=== PATIENT | male | born 1975 | race Caucasian/White ===

== ENCOUNTER 2023-01-08 13:26 | Outpatient (OUT) | payer BC, SELFPAY ==
[2023-01-08 14:52] LABS: Bilirubin Urine NEGATIVE (NEGATIVE); Blood Urine NEGATIVE (NEGATIVE); Clarity Urine CLEAR (CLEAR); Color Urine LT. YELLOW (YELLOW); Glucose Urine UA NEGATIVE (NEGATIVE); Ketones Urine NEGATIVE (NEGATIVE); Leukocyte Esterase Urine SMALL (NEGATIVE); Nitrite Urine POSITIVE (NEGATIVE); Protein Urine NEGATIVE (NEG/TRACE); Specific Gravity Urine 1.025 (1.005-1.025); Urobilinogen Urine 0.2 EU/dL (0.2-1.0)
[2023-01-08 14:59] LABS: Bacteria Urine SMALL #/HPF (NONE SEEN); Crystals Seen? None Seen #/HPF (None Seen); Mucus Urine NONE SEEN (NONE SEEN); RBC Urine NONE SEEN #/HPF (0-2); Squamous Epithelial Cell Urine RARE #/LPF (NONE/RARE)
[2023-01-08 15:00] LABS: Cast Seen? NONE SEEN #/LPF (NONE SEEN); Urine Culture Indicated ALREADY ORDERED
[2023-01-08 16:11] LABS: Prostate Specific Antigen Dx 0.51 ng/mL (<=4.00)
== END 2023-01-08 13:27 | disposition home or self-care (01) ==
LOC: LAB 13:29
PROVIDERS: PCP Family Medicine; Visit Provider Family Medicine
DX: Z00.00 Encounter for general adult medical examination without abnormal findings (principal)
CPT/HCPCS: 36415; 81001; 84153; 87086; 87150; 87186

== ENCOUNTER 2023-01-08 13:32 | Outpatient (OUT) | payer BC, SELFPAY ==
[2023-01-08 14:20] LABS: Basophils Percent Auto 0.3 % (0.2-2.0); Eosinophils Absolute Auto 0.3 10^3/uL (0.0-0.7); Eosinophils Percent Auto 2.7 % (0.9-7.0); Hematocrit 43.9 % (42.0-54.0); Hemoglobin 16.2 g/dL (14.0-18.0); Immature Granulocytes Abs Auto 0.04 10^3/uL (0.00-0.03); Immature Granulocytes Pct Auto 0.4 % (0.0-0.5); Lymphocytes Absolute Auto 2.7 10^3/uL (1.2-3.8); Lymphocytes Percent Auto 27.4 % (20.5-60.0); Mean Corpuscular HGB Conc 36.9 g/dL (29.9-35.2); Mean Corpuscular Hemoglobin 32.3 pg (25.9-34.0); Mean Corpuscular Volume 87.6 fL (80.0-94.0); Mean Platelet Volume 8.9 fL (9.5-13.5); Monocytes Absolute Auto 0.8 10^3/uL (0.3-0.8); Monocytes Percent Auto 8.3 % (1.7-12.0); Neutrophils Percent Auto 60.9 % (43.0-75.0); Platelet Count 187 10^3/uL (150-450); Red Blood Count 5.01 10^6/uL (4.70-6.10); Red Cell Distribution Width 11.9 % (11.0-15.0); White Blood Count 9.9 10^3/uL (4.0-11.0)
[2023-01-08 14:28] LABS: Creatinine Urine Random 102.16 mg/dL (20.00-300.00); Microalbum Creatinine Ratio Ur 12.7 mg/g (0.0-29.9); Microalbumin Urine Random 1.3 mg/dL (<=30.0)
[2023-01-08 14:30] LABS: Estimated Average Glucose 157 mg/dL; Glycohemoglobin A1C 7.1 % (4.5-6.2)
[2023-01-08 15:01] LABS: Alanine Aminotransferase 54 U/L (16-63); Albumin Globulin Ratio 1.1; Albumin Level 4.2 g/dL (3.4-5.0); Alkaline Phosphatase 105 U/L (46-116); Anion Gap 11.5; Aspartate Amino Transferase 23 U/L (15-37); BUN Creatinine Ratio 17.6; Bilirubin Total 0.8 mg/dL (0.2-1.0); Calcium 9.3 mg/dL (8.5-10.1); Chloride 100 mmol/L (98-107); Cholesterol 219 mg/dL (<=200); Estimated GFR (African America >60 (>=60); Estimated GFR (Non-African Ame >60 (>=60); Free T3 2.72 pg/mL (2.18-3.98); Globulin 3.7 g/dL; Glucose 185 mg/dL (74-106); HDL Cholesterol 44 mg/dL (40-60); Potassium 3.5 mmol/L (3.5-5.1); Sodium 136 mmol/L (136-145); Thyroid Stimulating Hormone 1.992 uIU/mL (0.358-3.740); Total Protein 7.9 g/dL (6.4-8.2); Triglycerides 233 mg/dL (<=150); VLDL CHOLESTEROL 46.6 mg/dL
[2023-01-09 04:08] LABS: FSH 5.4 mIU/mL (1.5-12.4); Luteinizing Hormone(LH) 9.1 mIU/mL (1.7-8.6); Testosterone 297 ng/dL (264-916)
== END 2023-01-08 13:33 | disposition home or self-care (01) ==
LOC: LAB 13:33
PROVIDERS: PCP Family Medicine
DX: Z00.00 Encounter for general adult medical examination without abnormal findings (principal); E23.7 Disorder of pituitary gland, unspecified; E11.9 Type 2 diabetes mellitus without complications
CPT/HCPCS: 36415; 80053; 80061; 81001; 82043; 82306; 82570; 82607; 83001; 83002; 83036; 84153; 84403; 84439; 84443; 84481; 85025; 87086; 87150; 87186

== ENCOUNTER 2023-09-18 12:10 | Emergency (ER) | payer BC, SELFPAY ==
[2023-09-18 12:11] VITALS: BP 162/96; PULSE 77; TEMP 36.8; O2SAT 98; BMI 46.2
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
[2023-09-18] MEDS: KETOROLAC TROMETHAMINE 30 MG/ML VIAL IM (12:45)
[2023-09-18] MEDS: ORPHENADRINE 60 MG/ 2 ML VIAL IM (12:46)
[2023-09-18 13:41] VITALS: BP 142/94; PULSE 62; O2SAT 98
== END 2023-09-18 14:32 | disposition home or self-care (01) ==
PROVIDERS: Emergency Provider Emergency Medicine; PCP Family Medicine
DX: M54.50 Low back pain, unspecified (principal); G89.29 Other chronic pain; Z87.820 Personal history of traumatic brain injury; Z79.899 Other long term (current) drug therapy; Z87.81 Personal history of (healed) traumatic fracture
CPT/HCPCS: 96372; 99284

== ENCOUNTER 2023-09-22 12:34 | Outpatient (OUT) | payer BC, SELFPAY ==
--- NOTE | 2023-09-22 12:42 | MR_ITS ---
[address] [address] Patient Name: ALPHONSO SHAFER MRN: [id number] date: 1975 Sex: M Assigned Patient Location: MRI Current Patient Location: MRI Accession/Order Number: [id number] Exam Date: 09/22/2023 12:42 Report Date: 09/22/2023 13:51 At the request of: JUAN MONTERROSO Procedure: MR lumbar spine wo con EXAMINATION: MR lumbar spine wo con HISTORY: lumbar back pain radiculopathy M54.50, M54.10 COMPARISON: No relevant comparison available. TECHNIQUE: A variety of imaging planes and parameters were utilized for visualization of suspected pathology. FINDINGS: For the purposes of numbering, sagittal T2 image # 8 extends from the mid T11 vertebral body superiorly to the S2-S3 level inferiorly. PARASPINAL AREA: Normal with no visible mass. BONES: Normal alignment with no acute fracture or spondylolisthesis. Mild to moderate degenerative spondylosis CORD/CAUDA EQUINA: Normal caliber, contour, and signal intensity. DISC LEVELS: 12-L1: No significant disc/facet abnormality, spinal stenosis, or foraminal stenosis. L1-L2: Early degenerative disc disease is present without focal protrusion or neural impingement. L2-L3: Disc desiccation. Mild diffuse disc/osteophyte complex with ligamentum flavum hypertrophy. Trefoil narrowing of the central canal. Moderate narrowing of the right neural foramen sagittal image #10. No left foraminal stenosis L3-L4: Disc desiccation. Mild diffuse disc/osteophyte complex. No central or foraminal stenosis L4-L5: No disc bulge or herniation. No central or foraminal stenosis L5-S1: No significant disc/facet abnormality, spinal stenosis, or foraminal stenosis. MR/MR lumbar spine wo con IMPRESSION: Degenerative changes resulting in central canal stenosis at L2-L3 and foraminal stenosis L2-3 and L3-L4 Electronically authenticated by: JUAN NICK Date: 09/22/2023 13:51
== END 2023-09-22 12:35 | disposition home or self-care (01) ==
LOC: MRI 12:35
PROVIDERS: PCP Family Medicine; Visit Provider Family Medicine
DX: M54.50 Low back pain, unspecified (principal); M54.10 Radiculopathy, site unspecified; M51.36 Other intervertebral disc degeneration, lumbar region
CPT/HCPCS: 72148

== ENCOUNTER 2023-10-01 13:24 | Outpatient (OUT) | payer BC, SELFPAY ==
--- NOTE | 2023-10-01 13:36 | P.CN_ITS ---
Consult Note: HPI Data of Consult Patient: new to practice Consult date: 10/01/23 Requesting Physician: Urvashi Kim NP Primary Care Provider: JUAN MONTERROSO Consult Narrative Reason for consult: chronic low back pain with acute flair Narrative: Rian Coleman a pleasant 48 year old male with chronic moderate to severe low back pain presents for evaluation and management. Recently evaluated by NS this morning who recommends CHANTELLE. Significant loss of functional ability over the last few weeks, is now unable to do anything besides lie flat due to severe pain/weakness. Pain today 9/10 increasing to 10/10 with all activity. Medrol dose pack 09/11 without benefit. Failed tylenol and mobic, currently utilizing ibuprofen, percocet 7.5mg PRN, gabapentin started today 300mg TID, old flexeril 10mg tid PRN script without benefit. cc:: CC: Urvashi Kim NP Review of Systems ROS Status of ROS 10 or more systems reviewed and unremark able except as noted in history and below Musculoskeletal Reports: back pain, extremity pain and joint pain Meds Home Medications and Allergies Home Medications ?Medication ?Instructions ?Recorded ?Confirmed ?Type carvedilol 25 mg tablet 25 mg PO BID 09/18/23 09/18/23 History chlorthalidone 25 mg tablet 25 mg PO DAILY 09/18/23 09/18/23 History empagliflozin 10 mg tablet 10 mg PO DAILY 09/18/23 09/18/23 History (Jardiance) lidocaine 5 % topical patch 1 patch topical Q24H #15 ea 09/18/23 Rx (Lidoderm) losartan 100 mg tablet 100 mg PO DAILY 09/18/23 09/18/23 History methylprednisolone 4 mg tablets in 4 mg PO DAILY 09/18/23 09/18/23 History a dose pack oxycodone-acetaminophen 5 mg-325 1 tab PO Q4H PRN pain #10 tabs 09/18/23 Rx mg tablet (Percocet) potassium chloride 20 mEq 20 meq PO .every other day 09/18/23 09/18/23 History tablet,extended release(part/cryst) (Klor-Con M) Allergies Allergy/AdvReac Type Severity Reaction Status Date / Time No Known Drug Allergies Allergy Verified 09/18/23 12:14 Exam Narrative Exam Narrative: modified exam as patient cannot tolerate standing/sitting Constitutional Documenting provider has reviewed patient's vital signs: yes Common normals: no apparent distress, oriented x3, healthy appearing, alert and well nourished General appearance: cooperative HENMT Common normals: normocephalic, hearing grossly normal bilaterally and moist oral mucous membranes Head and scalp: normocephalic Eye Common normals: PERRL Pupil: PERRL Neck & C-Spine Common normals: full ROM General: normal visual inspection Chest Common normals: inspection of chest normal Respiratory Common normals: normal respiratory effort, no retractions and no use of accessory muscles Back & Pelvis Lumbar spine/lower back: ROM limited, pain with ROM, paraspinal muscle tenderness and straight leg raise positive right Sacroiliac joints: SI joint(s) abnormal Other: significant pain to RLE following L3-L5 radicular pattern strength 3/5 in RLE modified positive adriana(patricks), gaenslens, thigh thrust, compression test Extremity Common normals: normal to inspection Neuro Common normals: oriented x3, CN's II-XII intact bilaterally, moves all extremities, no focal motor deficits, no sensory deficits noted and deep tendon reflexes 2+ bilaterally Sensorium/orientation: alert Gait (neuro): antalgic Motor exam: no movement abnormalities noted and strength abnormal Psych Common normals: mental status grossly normal, thought process normal, cooperative, affect normal, speech normal and activity/motor behavior normal Speech: normal speech Thought process: normal thought process Results Additional Findings Additional findings: If on a controlled substance or opioids, I have checked an [place] report on this patient and there are no aberrancies noted in the prescribing history.??If on a controlled substance or opioid a drug screen was completed and reviewed within the last year, and if there has not been a drug screen completed we ordered one today to monitor higher risk, state monitored pain medication use. As part of providing excellent, safe, comprehensive care, the following was completed at our patient's visit: 1. A medication reconciliation and review to ensure accurate knowledge of current/active medications, including asking our patients to inform us about any [id number] medications or herbal remedies/nutritional supplements/alternative remedies. 2. A review to specifically ensure our patients have had annual screening for screening for depression, screening for tobacco use, and screening for unhealthy alcohol use. For concerning screenings had a discussion with the patient, provided patient education, and recommended follow-up with primary care provider when appropriate. If patient noted with a risk of falling, they received education on strength, gait, and balance training to prevent future risk of falling. Assessment and Plan Assessment and Plan (1) Lumbar stenosis with neurogenic claudication: (2) Lumbar radiculopathy: (3) DDD (degenerative disc disease), lumbar: (4) Myofascial pain: Plan unable to complete PT/HEP due to severe pain NS recommending L4-5 CHANTELLE prior to surgical intervention based on physical exam and lumbar MRI findings right L3-4 L4-5 CHANTELLE under fluoroscopy, risks vs benefits discussed all questions answered continue percocet gabapentin through NS start tizanidine 4-8mg TID PRN myofascial pain/spasms f/u 2 weeks after injection
== END 2023-10-01 13:25 | disposition home or self-care (01) ==
LOC: PM 13:24
PROVIDERS: PCP Family Medicine; Visit Provider Nurse Practitioner
DX: M48.062 Spinal stenosis, lumbar region with neurogenic claudication (principal); M54.16 Radiculopathy, lumbar region; M51.36 Other intervertebral disc degeneration, lumbar region; M79.18 Myalgia, other site
CPT/HCPCS: G0463

== ENCOUNTER 2023-10-05 08:05 | Day surgery (SDC) | payer BC, SELFPAY ==
[2023-10-05 08:15] LABS: Glucometer 178 mg/dL (74-106)
[2023-10-05 08:22] VITALS: BP 100/65; PULSE 70; TEMP 36.6; O2SAT 96
--- OUTSIDE RECORDS SUMMARY | 2023-10-05 08:26 | XMS_ITS | CCD ---
Author Organization [facility] Care Team Providers Care Engine Dispatcher Name Role Phone EDI JIMENEZ Attending Unavailable JUAN MONTERROSO Primary Care Unavailable JUAN MONTERROSO Referring Unavailable BARBARA EDI Tuan Admitting Unavailable BARBARA EDI Tuan Surgeon Unavailable [place] Procedure Practitioner UnavailJuan Rizvi Unavailable Juan Monterroso DO Primary Care Provider CARRI CAMARILLO Attending Unavailable RABIA, CARRI Admitting Unavailable CARRI CAMARILLO Consulting Unavailable KRISS, DR MARTINEZ Primary Care Unavailable CARRI CAMARILLO Attending Unavailable CARRI CAMARILLO Admitting Unavailable GIRMARTA, DR MARTINEZ Primary Care Unavailable ZIEBER, DR QUINTON Russell Consulting Unavailable CARRI CAMARILLO Consulting Unavailable GIRMARTA, DR MARTINEZ Consulting Unavailable GIRVIN, DR MARTINEZ Attending Unavailable GIRVIN, DR MARTINEZ Admitting Unavailable GIRVIN, DR MARTINEZ Primary Care Unavailable GIRVIN, DR MARTINEZ Primary Care Unavailable ELTAHAWY, DR RAYMUNDO Admitting Unavailable ELTAHAWY, DR RAYMUNDO Attending Unavailable BRADLEY, JUAN Attending Unavailable GIRVIN, DR MARTINEZ Primary Care Unavailable JUAN HUERTA Admitting Unavailable MISC, DR CARR Consulting Unavailable GIRVIN, DR MARTINEZ Primary Care Unavailable MISC, DR CARR Attending Unavailable MISC, DR CARR Admitting Unavailable GIRVIN, DR MARTINEZ Primary Care Unavailable GIRVIN, DR MARTINEZ Consulting Unavailable GIRVIN, DR MARTINEZ Attending Unavailable GIRVIN, DR MARTINEZ Admitting Unavailable GIRVIN, DR MARTINEZ Attending Unavailable GIRVIN, DR MARTINEZ Admitting Unavailable GIRVIN, DR MARTINEZ Primary Care Unavailable GIRVIN, DR MARTINEZ Primary Care Unavailable GIRVIN, DR MARTINEZ Attending Unavailable GIRVIN, DR MARTINEZ Admitting Unavailable LEYLA, ASH Consulting Unavailable LEYLA, ASH Attending Unavailable GIRVIN, DR MARTINEZ Primary Care Unavailable LEYLA, ASH Admitting Unavailable MISC, DR CARR Consulting Unavailable GIRMARTA, DR MARTINEZ Primary Care Unavailable [facility] CARR Admitting Unavailable MIS, DR CARR Attending Unavailable CARRI CAMARILLO Admitting Unavailable RABIA, CARRI Consulting Unavailable CARRI CAMARILLO Attending Unavailable KRISS, DR MARTINEZ Primary Care Unavailable [facility], DR RAYMUNDO Consulting Unavailable [facility], DR RAYMUNDO Attending Unavailable [facility], DR RAYMUNDO Admitting Unavailable KRISS, DR MARTINEZ Primary Care Unavailable KRISS, DR MARTINEZ Primary Care Unavailable CHANDRA FOSS Consulting Unavailable CHANDRA FOSS Attending Unavailable PIPO, CHANDRA Admitting Unavailable ZOEY BENOIT Consulting Unavailable KRISS, DR MARTINEZ Primary Care Unavailable [facility] [place] DR CARR Consulting Unavailable [facility], DR CARR Attending Unavailable [facility], DR CARR Admitting Unavailable [facility]3] Juan GARCIA Primary Care Provider Tone Lockhart Attending Unavailab Tone Tabares Admitting Unavailab Juan Sinha Primary Care Unavailable [facility], JUSTEN Attending Unavailable EDI JIMENEZ Attending Unavailable Medications Current Medications Medication Drug Class(es) Dates Sig (Normalized) Sig (Original) atenolol 25 mg oral tablet (3 sources) beta-Adrenergic Ciara Start: 09-12-2010 atenolol (TENORMIN) 25 MG tablet Take 25 mg by mouth. 0 09/12/2010 Active atorvastatin 80 mg oral tablet (1 source) HMG-CoA Reductase Inhibitor take 1 tablet by mouth every twenty-four hours Atorvastatin Calcium 80 MG 1 tablet Orally Once a day Active bisacodyl 10 mg rectal suppository (3 sources) Stimulant Laxative Start: 07-15-2018 bisacodyl (DULCOLAX) 10 MG suppository Insert 1 Suppository in the rectum daily as needed for Constipation. 1 Suppository 0 07/15/2018 Active carvedilol 25 mg oral tablet (5 sources) alpha-Adrenergic Ciara, beta-Adrenergic Ciara Start: 11-06-2021 take 1 tablet by mouth every twenty-four hours Coreg 25 MG 1 tablet with food Orally daily Oct, Active Start: 11-06-2021 take 1 tablet by nj th every twelve hours Coreg 12.5 MG 1 tablet with food Orally Twice a day Oct, Active cephalexin 500 mg oral capsule (3 sources) Cephalosporin Antibacterial Start: 07-21-2018 take 1 capsule by mouth every six hours cephALEXin (KEFLEX) 500 MG capsule TAKE ONE CAPSULE BY MOUTH EVERY 6 HOURS 0 07/21/2018 Active chlorthalidone 25 mg oral tablet (7 sources) Thiazide-like Diuretic take 1 tablet by mouth once Chlorthalidone 25 MG TAKE 1 TABLET BY MOUTH EVERY DAY*REPLACING HYDROCHLOROTHIAZIDE * Oral Active clomiPHENE citrate 50 mg oral tablet (6 sources) Estrogen Agonist/Antagonist take 0.5 tab let by mouth once daily clomiPHENE Citrate 50 MG 1/2 tablet Orally Once a day Active docusate sodium 100 mg oral capsule (3 sources) Start: 07-15-2018 take 1 capsule by mouth twice daily docusate sodium (COLACE) 100 MG capsule Take 1 Capsule by mouth 2 times daily. 60 Capsule 3 07/15/2018 Active empagliflozin 10 mg oral tablet (1 source) Sodium-Glucose Cotransporter 2 Inhibitor Start: 12-16-2022 take 1 tablet by mouth every twenty-four hours Jardiance 10 MG 1 tablet Orally Once a day for 90 days Nov, Active 0.6 ml enoxaparin sodium 100 mg/ml prefilled syringe (3 sources) Low Molecular Weight Heparin Start: 07-15-2018 inject 0.6 mL by subcutaneous injection twice daily enoxaparin (LOVENOX) 60 MG/0.6ML injection Inject 0.6 mL under the skin 2 times daily. 50.4 mL 0 07/15/2018 Active hydroCHLOROthiazide 25 mg oral tablet (5 sources) Thiazide Diuretic Start: 07-16-2018 take 1 tablet by mouth once daily hydrochlorothiazide (HYDRODIURIL) 25 MG tablet Take 1 Tablet by mouth daily. 30 Tablet 0 07/16/2018 Active hydroCHLOROthiazide 25 mg / losartan potassium 100 mg oral tablet (3 sources) Thiazide Diuretic, Angiotensin 2 Receptor Ciara Start: 09-12-2010 losartan-hydrochlorot hiazide (HYZAAR) 100-25 MG per tablet Take by mouth. 0 09/12/2010 Active ibuprofen 600 mg oral tablet (9 sources) Nonsteroidal Anti-inflammator y Drug Start: 09-12-2010 ibuprofen (MOTRIN) 600 MG tablet Take 600 mg by mouth. 0 09/12/2010 Active take 1 tablet by nj th every eight hours at mealtime Ibuprofen 800 MG TAKE 1 TABLET BY MOUTH EVERY 8 HOURS WITH FOOD for 30 Active icosapent ethyl 1000 mg oral capsule (1 source) take 2 capsules by mouth every twelve hours Vascepa 1 GM 2 capsules with meals Orally Twice a day Active levETIRAcetam 750 mg oral tablet (3 sources) Start: 07-13-19 19 take 1 tablet by mouth twice daily levetiracetam (KEPPRA) 750 MG tablet Take 1 Tablet by mouth 2 times daily for 7 days. 14 Tablet 0 07/13/2018 Active losartan potassium 100 mg oral tablet (10 sources) Angiotensin 2 Receptor Ciara Start: 07-16-19 19 take 1 tablet by mouth once daily losartan (COZAAR) 100 MG tablet Take 1 Tablet by mouth daily. 30 Tablet 0 07/16/2018 Active meloxicam 15 mg oral tablet (1 source) Nonsteroidal Anti-inflammatory Drug Start: 01-13-20 23 take 1 tablet by mouth every twenty-four hours Meloxicam 15 MG 1 tablet Orally Once a day for 90 days Dec, Active 24 hr metFORMIN hydrochloride 500 mg extended release oral tablet (6 sources) Biguanide metFORMIN HCl ER 500 MG 2 tablets with morning meal Orally and take 2 tablets with evening meal Active naloxone hydrochloride 40 mg/ml nasal spray (3 sources) Opioid Antagonist Start: 07-13-2018 naloxone 4 MG/0.1ML LIQD nasal liquid Indications: Opioid Overdose Instill 0.1 mL into one nostril (alternate sides) as needed for Other (Drug overdose, give and call 911) for up to 1 dose. 1 Each 1 07/13/2018 Active nitrofurantoin, macrocrystals 25 mg / nitrofurantoin, monohydrate 75 mg oral capsule (1 source) Nitrofuran Antibacterial Start: 01-12-2023 take 1 capsule by mouth twice daily at mealtime Macrobid 100 MG 1 capsule Orally bid with food for 7 days Dec, Active microencapsulated potassium chloride 20 meq extended release oral tablet (1 source) Start: 01-12-2023 take 1 tablet by mouth every other day at mealtime Potassium Chloride Paola ER 20 MEQ 1 tablet with food Orally qod for 90 days Dec, Active SITagliptin (4 sources) Dipeptidyl Peptidase 4 Inhibitor Januvia Active Testosterone (12 sources) Androgen Testosterone pil l Active Testosterone inj ection every other week Active Vitamin B-12 1000 MCG (2 sources) take 1 tablet by nj th once daily Vitamin B-12 1000 MCG 1 tablet Orally Once a day Active vitamin b12 1 mg oral tablet (5 sources) Vitamin B12 take 1 tablet by nj th every week Vitamin B-12 1000 MCG 1 tablet Orally once a week Active take 1 tablet by nj th every twenty-four hours Vitamin B-12 1000 MCG 1 tablet Orally Once a day Active Vitamin D3 (7 sources) Vitamin D3 Activ e {20 (nirmatrelvir 150 MG Ora l Tablet) / 10 (ritonavir 100 MG Oral Tablet) } Pack [Paxlovid 5-Day] (1 source) Start: 04-24-2022 Paxlovid (300/ 100) 20 x 150 MG & 10 x 100MG as directed Orally Twice a day Apr, Active Completed/Discontinued Medications Medication Drug Class(es) Dates Sig (Normalized) Sig (Original) amLODIPine 10 mg oral tablet (8 sources) Dihydropyridine Calcium Channel Ciara take 1 tablet by mouth every twenty-four hours Norvasc 10 MG 1 tablet Orally Once a day for 30 Not-Taking 120 actuat budesonide 0.08 mg/actuat / formoterol fumarate 0.0045 mg/actuat metered dose inhaler (7 sources) Corticosteroid, beta2-Adrenergic Agonist take 2 puff(s) by inhalation once daily Symbicort 80-4.5 MCG/ACT 2 puffs Inhalation Once a day Not-Taking dextromethorphan hydrobromid e 30 mg / pyrilamine maleate 30 mg oral tablet (2 sources) Uncompetitive E-kkulwx-N-aspartate Receptor Antagonist, Sigma-1 Agonist Start: 05-13-2021 Start: 05-13-2021 take 1 tablet by nj th every six hours as needed Dinosaur DMT 30-30 MG 1 tablet Orally q6 hrs prn Apr, Not-Taking methocarbamol 500 mg oral ta blet (2 sources) Muscle Relaxant somatropin 24 mg cartridge (2 sources) Recombinant Human Growth Hormone Problems Active Problems Problem Classification Problem Date Documented Date Episodic/Chronic Diabetes mellitus without complication (5 sources) Type 2 diabetes mellitus without complications; 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: [TYPE 2 DM WITHOUT COMPLICATIONS] Onset: 07-15-2022 Chronic Diseases of white blood cells (7 sources) Increased blood leukocyte number; 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: [Elevated white blood cell count, unspecified] Chronic Disorders of lipid metabolism (13 sources) Hyperlipidemia; 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: [Hyperlipidemia, unspecified] Onset: 06-18-2021 Resolved: 11-06-2021 Chronic Essential hypertension (12 sources) Hypertensive disorder; 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: [Essential (primary) hypertension] Onset: 06-18-2021 Resolved: 11-06-2021 Chronic Fluid and electrolyte disorders (6 sources) Hypokalemia; 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: [HYPOKALEMIA] Onset: 11-06-2021 Resolved: 11-06-2021 Episodic Joint disorders and dislocations; trauma-related (1 source) Chondromalacia patellae, left knee; 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: [CHONDROMALACIA PATELLAE LEFT KNEE] Onset: 01-15-2022 Chronic Malaise and fatigue (1 source) Other fatigue; 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: [OTHER FATIGUE] Onset: 07-19-2022 Episodic Nutritional deficiencies (10 sources) Vitamin D deficiency; 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: [Vitamin D deficiency, unspecified] Onset: 06-18-2021 Resolved: 11-06-2021 Chronic Other aftercare (1 source) skilled nursing (current) use of insulin; 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: [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] Onset: 07-19-2022 Episodic Other endocrine disorders (7 sources) Decreased testosterone level ; 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: [Testicular hypofunction] Chronic Other endocrine disorders (7 sources) Hypogonadotropic hypogonadism; 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: [Hypopituitarism] Chronic Other endocrine disorders (2 sources) Hypopituitarism; 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: [HYPOPITUITARISM] Onset: 06-18-2021 Resolved: 06-18-2021 Chronic Other endocrine disorders (2 sources) Testicular hypofunction; 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: [TESTICULAR HYPOFUNCTION] Onset: 06-18-2021 Resolved: 06-18-2021 Chronic Other nervous system disorders (7 sources) Paresthesia; 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: [Paresthesia of skin] Episodic Other nutritional; endocrine; and metabolic disorders (7 sources) Obesity; 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: [Obesity, unspecified] Chronic Residual codes; unclassified (7 sources) Obstructive sleep apnea syndrome; 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: [Obstructive sleep apnea (adult) (pediatric)] Chronic Residual codes; unclassified (7 sources) Amnesia; 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: [Other amnesia] Episodic Spondylosis; intervertebral disc disorders; other back problems (3 sources) Cervicalgia; 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: [Radiculopathy, lumbar region] Onset: 06-18-2021 Resolved: 06-18-2021 Episodic Unclassified (4 sources) CONTACT W/AND (SUSP) EXPOS COVID-19; 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: [CONTACT W/AND (SUSP) EXPOS COVID-19] Onset: 01-15-2022 Viral infection (2 sources) COVID-19; 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: [COVID-19] Onset: 06-18-2021 Resolved: 06-18-2021 Past or Other Problems Problem Classification Problem Date Documented Da te Episodic/Chronic Cardiac dysrhythmias (4 sources) Palpitations; 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: [PALPITATIONS] Onset: 02-18-2022 Episodic Diabetes mellitus without complication (6 sources) Hyperglycemia, unspecified; 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: [HYPERGLYCEMIA UNSPECIFIED] Onset: 06-18-2021 Resolved: 11-06-2021 Episodic Genitourinary symptoms and ill-defined conditions (1 source) Nocturia Onset: 06-18-2021 Resolved: 06-18-2021 Episodic Intracranial injury (1 source) Unspecified intracranial injury with loss of consciousness of unspecified duration, initial encounter Onset: 06-18-2021 Resolved: 06-18-2021 Episodic Joint disorders and dislocations; trauma-related (1 source) Other tear of medial meniscus, current injury, left knee, initial encounter; 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: [OTH TEAR MED MENSC CUR LT KNEE INIT] Onset: 01-15-2022 Episodic Other aftercare (2 sources) Other exterminator helper (current) drug therapy Onset: 06-18-2021 Resolved: 11-06-2021 Episodic Other bone disease and musculoskeletal deformities (1 source) Chondromalacia, left knee; 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: [CHONDROMALACIA LEFT KNEE] Onset: 01-15-2022 Episodic Other connective tissue disease (1 source) Synovial cyst of popliteal space [Alfaro], left knee; 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: [SYNOVIAL CYST POP SPACE LEFT KNEE] Onset: 01-15-2022 Episodic Other connective tissue disease (4 sources) Pain in right foot; 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: [PAIN IN RIGHT FOOT] Onset: 11-11-2021 Episodic Other non-traumatic joint disorders (4 sources) Pain in left knee; 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: [PAIN IN LEFT KNEE] Onset: 01-10-2022 Episodic Other non-traumatic joint disorders (1 source) Effusion, left knee; 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: [EFFUSION LEFT KNEE] Onset: 01-15-2022 Episodic Other non-traumatic joint disorders (1 source) Osteophyte, left knee; 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: [OSTEOPHYTE LEFT KNEE] Onset: 01-15-2022 Episodic Other nutritional; endocrine; and metabolic disorders (1 source) Abnormal weight gain Onset: 06-18-2021 Resolved: 06-18-2021 Episodic Other nutritional; endocrine; and metabolic disorders (1 source) Abnormal weight loss Onset: 11-06-2021 Resolved: 11-06-2021 Episodic Other screening for suspected conditions (not mental disorders or infectious disease) (1 source) Encounter for screening for malignant neoplasm of prostate Onset: 06-18-2021 Resolved: 06-18-2021 Episodic Sprains and strains (4 sources) Rupture of quadriceps tendon; 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: [Strain of right quadriceps muscle, fascia and tendon, initial encounter] Onset: 07-13-2018 07-15-2018 Episodic Unclassified (1 source) Chronic cough R05.3 Onset: 06-18-2021 Resolved: 06-18-2021 Unclassified (1 source) CONTACT W/AND (SUSP) EXPOS COVID-19; 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: [CONTACT W/AND (SUSP) EXPOS COVID-19] Onset: 04-28-2022 Results Test Name Value Interpretation Reference Range Facility 36on 10-01-2023 [address] Jimenez. Ordered and faxed to number provided. [facility] 36 Shan at [facility] requesting patients PT order can be faxed to [id number] [facility] Follow-Upon 10-01-2023 Follow-Up [id number] Alphonso Coleman 1975 M Date Provider Department Center 10/01/2023 EDI SALGADO Rina ORTHO [facility] Family History Problem Relation Age of Onset Diabetes Mother Hypertension Mother Heart attack Mother's Sister Heart attack Mother's Brother Heart attack Maternal Grandfather Family Status - Relation Status Age at Mother Mother's Sister Mother's Brother Maternal Grandfather Level of Service:85250 [place] OFFICE/OUTPATIENT ESTABLISHED MOD MDM 30 MIN [facility] 36on 09-30-2023 36 Patient states he is completely helpless and has been doing nothing but laying in bed. He cannot go to the restroom, he cannot get out of bed, he cannot do anything. I advised that Dr. Jimenez doesn't typically do telemed visits - and in [place] he does not have the capability to do that at all with not having any help, and them using a different computer system. Since he hasn't been seen in over a year, Dr. Jimenez will also need to do a physical exam in order to get anything approved by insurance, which cannot be done through telemed visit. Patient asks if there is a stretcher he could use to be transported into the building. I advised that we only have wheelchairs that I know of, but if he needs to be transported by stretcher, he would have to check with his insurance company to see if something like that is covered. I advised that I have never personally been to the [place] office, so I am not sure what it looks like, what kind of modes of transportation they have, etc. He asks if he should just go through the ED to check in for his appointment because then he can be put on a stretcher. I advised that if he presents to the ED - he will most likely be evaluated by an ED physician, and not by Dr. Jimenez. He states he could just go to the ED and tell them he cannot take care of himself at home and they will have to admit him. I advised that he would be evaluated and if they think it is medically necessary, then yes they will admit him. He asked if Dr. Jimenez would come see him. I advised it depended on what hospital he came to because Dr. Jimenez does not have privileges at every hospital. He advised he would come here. I advised that if he did end up being admitted, and they chose to consult Dr. Jimenez, then either Dr. Jimenez or one of our residents would come see him while he was inpatient. He states he doesn't think this appointment is going to work because he doesn't think he will be able to get here. He states he has been trying to get a scan of his hip done as well, but no one will order it for him. He knows he cannot fit in the MRI machine here, so he would have to be transferred to [place] because this is the only MRI that has worked for him in the past., and then be transferred back here. I advised that is out of my scope and I am not aware of how that works, but we cannot order anything for him until he is evaluated at an office visit. He asked again about getting a stretcher. I advised that we do not have them here that I am aware of and he would need to contact his insurance to see if that is a covered option for him. He asked if he could just come up here to the appointment and have Dr. Jimenez come out to his car to see him. I advised this is not an option. He asked if there was anyone at the [place] location that he could talk to to see if they had a stretcher he could use for the appointment. I advised I am unaware, but provided their phone number for him. I advised him to let me know if the appointment tomorrow will work or not, so we can cancel it if necessary. He verbalized understanding. [facility] [address] Dr. Jimenez does not do telemed visits. He will have to be seen face to face. Will call patient when available. [facility] 36 Patient has questions regarding tomorrows visit Wanting to know if he can be scheduled for a telemedicine visit as he will have a difficult time making it to the office Please give a call back [facility] 36on 2023 36 Patient advised we cannot see anything from [place] unless he brings us a CD. He states he wants Dr. Jimenez to look at the report. I advised I have not received anything from [place] but will keep an eye out for it. He verbalized understanding. [facility] 36 Patient called and would like to know if can view his MRI results done at [facility] on 09/22/23 of lumbar spine, fiction writer directed patient to call the [facility] and request MRI images to bring on a disc to his appointment, patient then wanted to know if would be able to call the [facility] and see results of MRI and discuss results prior to appointment. [facility] 36on 09-17-2023 36 Spoke to patient. Advised that since he has not been seen since October of 2021, he will need to come in for an appointment before anything can be ordered. He states he doesn't know how he is going to get here because he is pretty much bed-ridden, he cannot walk, he cannot stand to do anything including take a shower or use the restroom. I offered an appointment in [place] instead, since that is closer to where he lives, and I can get him in a lot sooner in [place] than I can in [place] since the first opening is in November. He states he doesn't think he can even make it the 2 weeks because he has to basically lay flat and cannot do anything. I offered to schedule him an appointment with a PA since he will need all new imaging anyway. He declined stating he doesn't know how he will even get in the building because he cannot sit in a wheelchair. He asked if he could just go to the [place] [facility] in his hometown to have the MRI. I advised usually the ED only does CT scans, it is rare that they do MRIs - and it is up to that treating physician that evaluates him to order the MRI. I advised him to speak to his PCP in his hometown to see if they would be willing to order the MRI since it is closer, and he would just have to bring the CD to an appointment either here or in [place] to go over the results with Dr. Jimenez. He verbalized understanding and states this is a good option. I offered again to get him an appointment so there is at least something on the books and he is not pushed out even further. He opted to schedule an appointment in [place] instead of [place]. He will discuss getting the MRI ordered with his PCP, and if they are not willing he will talk to Dr. Jimenez at the appointment on 09/30 about ordering the MRI. Patient is agreeable to plan. [facility] 36 Patients requesting an MRI and a sooner appointment. He said he knows the Dr and the dr will just do it. I informed him hes a new patient so he does needs seen at which he said no the dr will just order the mri and call him [facility] Office Visiton 01-12-2023 Follow-up visit [id number] Destiney Colemanian Frankie 1975 M Date Provider Department Center 01/12/2023 [id number], ANNA [facility] Family History Problem Relation Age of Onset Diabetes Mother Hypertension Mother Heart attack Mother's Sister Heart attack Mother's Brother Heart attack Maternal Grandfather Family Status - Relation Status Age at Mother Mother's Sister Mother's Brother Maternal Grandfather Level of Service:63307 [place] OFFICE/OUTPATIENT ESTABLISHED LOW MDM 20-29 MIN Normal [facility] TESTOSTERONE, FREE,DIRECT, T OTALon 07-22-2022 Free Testosterone(Direct) 11.4 pg/mL Normal 6.8-21.5 [facility] Comment on above: Result Comment: Perf ormed at: BN Performed By: #### V ITAD #### [facility] [address] [place] [address] Dr. Zurdo Gil Testosterone [Mass/Vol] 373 ng/dL Normal [phone] [facility] Comment on above: Result Comment: Adul t male reference interval is based on a population of healthy nonobese males (BMI <30) between 19 and 39 years old. Elen, et.al. JCEM 2017,102;[id number]. PMID: [id number]. Performed at: CB Performed By: #### V ITAD #### [facility] [address] [place] [address] Dr. Zurdo Gil VLMRHAL-ZEFR-OAYFSC-FACTOR 1 on 07-17-2022 Insulin-Like Growth Factor I 103 ng/mL Normal 81-263 [facility] Comment on above: Performed By: #### V ITAD #### [facility] [address] [address] [address] Zurdo Gil ESTRADIOLon 07-16-2022 Estradiol 41.2 pg/mL Normal 7.6-42.6 [facility] Comment on above: Result Comment: Roch e ECLIA methodology Performed By: #### V ITAD #### [facility] [address] [address] [address] Zurdo Gil PROF CHEM 8 (BAS METB)on Anion gap [Moles/Vol] 13.0 mmol/L Normal [facility] Comment on above: Performed By: #### C VDAGA #### [facility] [address] [address] [address] Zurdo Gil Calcium [Mass/Vol] 9.3 mg/dL Normal 8.5-10.1 [facility] Comment on above: Performed By: #### C VDAGA #### [facility] [address] [address] [address] Zurdo Gil Chloride [Moles/Vol] 97 mmol/L Critically low 98-107 [facility] Comment on above: Performed By: #### C VDAGA #### [facility] [address] [place] [address] Dr. Zurdo Gil CO2 [Moles/Vol] 27.4 mmol/L Normal 21.0-32.0 [facility] Comment on above: Performed By: #### C VDAGA #### [facility] [address] [place] [address] Dr. Zurdo Gil Creatinine [Mass/Vol] 1.06 mg/dL Normal 0.70-1.30 [facility] Comment on above: Performed By: #### C VDAGA #### [facility] [address] [place] [address] Dr. Zurdo Gil EGFR-AF CZECH >60 Normal >=60 [facility] Comment on above: Performed By: #### C VDAGA #### [facility] [address] [place] [address] Dr. Zurdo Gil EGFR-NON AF CZECH >60 Normal >=60 [facility] Comment on above: Performed By: #### C VDAGA #### [facility] [address] [place] [address] Dr. Zurdo Gil Glucose [Mass/Vol] 207 mg/dL Critically high 74-106 [facility] Comment on above: Performed By: #### C VDAGA #### [facility] [address] [place] [address] Dr. Zurdo Gil Potassium [Moles/Vol] 3.4 mmol/L Critically low 3.5-5.1 [facility] Comment on above: Performed By: #### C VDAGA #### [facility] [address] [address] [address] Zurdo Gil Sodium [Moles/Vol] 134 mmol/L Critically low 136-145 [facility] Comment on above: Performed By: #### C VDAGA #### [facility] [address] [place] [address] Dr. Zurdo Gil Urea nitrogen [Mass/Vol] 15.0 mg/dL Normal 7.0-18.0 [facility] Comment on above: Performed By: #### C VDAGA #### [facility] [address] [place] [address] Dr. Zurdo Gil Urea nitrogen/Creatinine [Mass ratio] 14.2 mg/mg Normal [facility] Comment on above: Performed By: #### C VDAGA #### [facility] [address] [place] [address] Dr. Zurdo Gil CBC AUTO DIFFon 07-15-2022 BASO # 0.0 103/ul Normal 0.0-0.1 [facility] Comment on above: Performed By: #### C BC #### [facility] [address] [place] [address] Dr. Zurdo Gil Basophils/100 WBC (Bld) 0.3 % Normal 0.2-2.0 [facility] Comment on above: Performed By: #### C BC #### [facility] [address] [place] [address] Dr. Zurdo Gil EO # 0.2 103/ul Normal 0.0-0.7 [facility] Comment on above: Performed By: #### C BC #### [facility] [address] [place] [address] Dr. Zurdo Gil Eosinophils/100 WBC (Bld) 2.5 % Normal 0.9-7.0 [facility] Comment on above: Performed By: #### C BC #### [facility] [address] [place] [address] Dr. Zurdo Gil Erythrocyte distribution width (RBC) [Ratio] 12.0 % Normal 11.0-15.0 [facility] Comment on above: Performed By: #### C BC #### [facility] [address] [address] [address] Zurdo Gil Hematocrit (Bld) [Volume fraction] 47.5 % Normal 42.0-54.0 [facility] Comment on above: Performed By: #### C BC #### [facility] [address] [address] [address] Zurdo Gil Hemoglobin (Bld) [Mass/Vol] 17.6 g/dL Normal 14.0-18.0 [facility] Comment on above: Performed By: #### C BC #### [facility] [address] [place] [address] Dr. Zurdo Gil IG # 0.04 10e3/ul Critically high 0.00-0.03 [facility] Comment on above: Performed By: #### C BC #### [facility] [address] [place] [address] Dr. Zurdo Gil IG % 0.4 % Normal 0.0-0.5 [facility] Comment on above: Performed By: #### C BC #### [facility] [address] [address] [address] Zurdo Gil LYMPH # 2.7 103/ul Normal 1.2-3.8 [facility] Comment on above: Performed By: #### C BC #### [facility] [address] [place] [address] Dr. Zurdo Gil Lymphocytes/100 WBC (Bld) 27.5 % Normal 20.5-60.0 [facility] Comment on above: Performed By: #### C BC #### [facility] [address] [place] [address] Dr. Zurdo Gil MANUAL DIFF REQ NO Normal [facility] Comment on above: Performed By: #### C BC #### [facility] [address] [place] [address] Dr. Zurdo Gil MCH (RBC) [Entitic mass] 32.3 pg Normal 25.9-34.0 [facility] Comment on above: Performed By: #### C BC #### [facility] [address] [address] [address] Zurdo Gil MCHC (RBC) [Mass/Vol] 37.1 g/dL Critically high 29.9-35.2 [facility] Comment on above: Performed By: #### C BC #### [facility] [address] [address] [address] Zurdo Gil MCV (RBC) [Entitic vol] 87.2 fL Normal 80.0-94.0 [facility] Comment on above: Performed By: #### C BC #### [facility] [address] [place] [address] Dr. Zurdo Gil MONO # 0.8 103/ul Normal 0.3-0.8 [facility] Comment on above: Performed By: #### C BC #### [facility] [address] [place] [address] Dr. Zurdo Gil Monocytes/100 WBC (Bld) 8.0 % Normal 1.7-12.0 [facility] Comment on above: Performed By: #### C BC #### [facility] [address] [place] [address] Dr. Zurdo Gil NEUT # 5.9 103/ul Normal 1.4-6.5 [facility] Comment on above: Performed By: #### C BC #### [facility] [address] [place] [address] Dr. Zurdo Gil Neutrophils/100 WBC (Bld) 61.3 % Normal 43.0-75.0 [facility] Comment on above: Performed By: #### C BC #### [facility] [address] [place] [address] Dr. Zurdo Gil Platelet mean volume (Bld) [Entitic vol] 8.7 fL Critically low 9.5-13.5 [facility] Comment on above: Performed By: #### C BC #### [facility] [address] [place] [address] Dr. Zurdo Gil PLT 185 103/ul Normal 150-450 [facility] Comment on above: Performed By: #### C BC #### [facility] [address] [address] [address] Zurdo Gil RBC 5.45 106/ul Normal 4.70-6.10 [facility] Comment on above: Performed By: #### C BC #### [facility] [address] [address] [address] Zurdo Gil WBC 9.7 103/ul Normal 4.0-11.0 [facility] Comment on above: Performed By: #### C BC #### [facility] [address] [address] [address] Zurdo Gil FREE T3on 07-15-2022 FREE T3 2.52 pg/mlL Normal 2.18-3.98 [facility] Comment on above: Performed By: #### V ITAD #### [facility] [address] [place] [address] Dr. Zurdo Gil FREE T4on 07-15-2022 Free T4 [Mass/Vol] 1.02 ng/dL Normal 0.76-1.46 [facility] Comment on above: Performed By: #### F T4, VITB12, VITAD #### [facility] [address] [address] [address] Zurdo Gil GLYCOHEMOGLOBIN A1Con 2022 ADA RECOMMENDATION SEE BELOW Normal [facility] Comment on above: Result Comment: ADA RECOMMENDED LIMIT 4.0 - 6.0 ADA THERAPEUTIC TARGET < 7.0 ACTION SUGGESTED > 7.0 Performed By: #### A 1C #### [facility] [address] [place] [address] Dr. Zurdo Gil Glucose [Mass/Vol] 134 mg/dL Normal [facility] Comment on above: Performed By: #### A 1C #### [facility] [address] [place] [address] Dr. Zurdo Gil HbA1c (Bld) [Mass fraction] 6.3 % Critically high 4.5-6.2 [facility] Comment on above: Performed By: #### A 1C #### [facility] [address] [place] [address] Dr. Zurdo Gil LIPID PROFILEon 07-15-2022 CHOL-HDL RATIO NORM SEE BELOW Normal [facility] Comment on above: Result Comment: 3.3 - 4.4 LOW RISK 4.4 - 7.1 AVERAGE RISK 7.1 - 11.0 MODERATE RISK >11.0 HIGH RISK Performed By: #### V ITAD #### [facility] [address] [address] [address] Zurdo Gil Cholesterol [Mass/Vol] 231 mg/dL Critically high <=200 [facility] Comment on above: Performed By: #### V ITAD #### [facility] [address] [address] [address] Zurdo Gil Cholesterol in HDL [Mass/Vol] 41 mg/dL Normal 40-60 [facility] Comment on above: Performed By: #### V ITAD #### [facility] [address] [address] [address] Zurdo Gil Cholesterol in LDL [Mass/Vol] 130.6 mg/dL Normal [facility] Comment on above: Performed By: #### V ITAD #### [facility] [address] [address] [address] Zurdo Gil Cholesterol.total/Ch olesterol in HDL [Mass ratio] 5.6 {ratio} Normal [facility] Comment on above: Performed By: #### V ITAD #### [facility] [address] [address] [address] Zurdo Gil HDL NORMAL > or = 60 mg/dl - LOW CARDIOVASCULAR RISK <40 mg/dl - HIGH CARDIOVASCULAR RISK Normal [facility] Comment on above: Performed By: #### V ITAD #### [facility] [address] [address] [address] Zurdo Gil LDL CALC NORMAL SEE BELOW Normal [facility] Comment on above: Result Comment: <100 mg/dl OPTIMAL 100 - 129 mg/dl NEAR OR ABOVE OPTIMAL 130 - 159 mg/dl BORDERLINE HIGH 160 - 189 mg/dl HIGH >190 mg/dl VERY HIGH Performed By: #### V ITAD #### [facility] [address] [address] [address] Zurdo Gil Triglyceride [Mass/Vol] 297 mg/dL Critically high <=150 [facility] Comment on above: Performed By: #### V ITAD #### [facility] [address] [address] [address] Zurdo Gil VLDL CALC 59.4 mg/dL Normal [facility] Comment on above: Performed By: #### V ITAD #### [facility] [address] [address] [address] Zurdo Gil MICROALB CREAT RATIO RANDOMo n 07-15-2022 mALB <1.3 Normal <=30.0 [facility] Comment on above: Performed By: #### M CRR #### [facility] [address] [place] [address] Dr. Zurdo Gil MALB CR RATIO RANGE SEE BELOW Normal [facility] Comment on above: Result Comment: NO M ICROALBUMINURIA 0-29 MG/G CLINICAL MICROALBUMINURIA 30-300 MG/G MACROALBUMINURIA >300 MG/G Performed By: #### M CRR #### [facility] [address] [place] [address] Dr. Zurdo Gil URINE CREAT 37.07 mg/dL Normal 20.00-300.00 [facility] Comment on above: Performed By: #### M CRR #### [facility] [address] [place] [address] Dr. Zurdo Gil PROF 14(COMP METB)on 023 Albumin [Mass/Vol] 4.3 g/dL Normal 3.4-5.0 [facility] Comment on above: Performed By: #### C VDAGA #### [facility] [address] [place] [address] Dr. Zurdo Gil Albumin/Globulin [Mass ratio] 1.0 {ratio} Normal [facility] Comment on above: Performed By: #### C VDAGA #### [facility] [address] [place] [address] Dr. Zurdo Gil ALP [Catalytic activity/Vol] 92 U/L Normal 46-116 [facility] Comment on above: Performed By: #### C VDAGA #### [facility] [address] [address] [address] Zurdo Gil ALT [Catalytic activity/Vol] 35 U/L Normal 16-63 [facility] Comment on above: Performed By: #### C VDAGA #### [facility] [address] [address] [address] Zurdo Gil Anion gap [Moles/Vol] 15.2 mmol/L Normal [facility] Comment on above: Performed By: #### C VDAGA #### [facility] [address] [address] [address] Zurdo Gil AST [Catalytic activity/Vol] 22 U/L Normal 15-37 [facility] Comment on above: Performed By: #### C VDAGA #### [facility] [address] [place] [address] Dr. Zurdo Gil Bilirubin [Mass/Vol] 1.1 mg/dL Critically high 0.2-1.0 [facility] Comment on above: Performed By: #### C VDAGA #### [facility] [address] [address] [address] Zurdo Gil Calcium [Mass/Vol] 9.4 mg/dL Normal 8.5-10.1 [facility] Comment on above: Performed By: #### C VDAGA #### [facility] [address] [place] [address] Dr. Zurdo Gil Chloride [Moles/Vol] 99 mmol/L Normal 98-107 [facility] Comment on above: Performed By: #### C VDAGA #### [facility] [address] [address] [address] Zurdo Gil CO2 [Moles/Vol] 25.8 mmol/L Normal 21.0-32.0 [facility] Comment on above: Performed By: #### C VDAGA #### [facility] [address] [address] [address] Zurdo Gil Creatinine [Mass/Vol] 1.01 mg/dL Normal 0.70-1.30 [facility] Comment on above: Performed By: #### C VDAGA #### [facility] [address] [address] [address] Zurdo Gil EGFR-AF CZECH >60 Normal >=60 [facility] Comment on above: Performed By: #### C VDAGA #### [facility] [address] [address] [address] Zurdo Gil EGFR-NON AF CZECH >60 Normal >=60 [facility] Comment on above: Performed By: #### C VDAGA #### [facility] [address] [address] [address] Zurdo Gil Globulin (S) [Mass/Vol] 4.1 g/dL Normal [facility] Comment on above: Performed By: #### C VDAGA #### [facility] [address] [place] [address] Dr. Zurdo Gil Glucose [Mass/Vol] 185 mg/dL Critically high 74-106 [facility] Comment on above: Performed By: #### C VDAGA #### [facility] [address] [place] [address] Dr. Zurdo Gil Potassium [Moles/Vol] 2.9 mmol/L Critically low 3.5-5.1 [facility] Comment on above: Performed By: #### C VDAGA #### [facility] [address] [place] [address] Dr. Zurdo Gil Protein [Mass/Vol] 8.4 g/dL Critically high 6.4-8.2 [facility] Comment on above: Performed By: #### C VDAGA #### [facility] [address] [place] [address] Dr. Zurdo Gil Sodium [Moles/Vol] 135 mmol/L Critically low 136-145 [facility] Comment on above: Performed By: #### C VDAGA #### [facility] [address] [place] [address] Dr. Zurdo Gil Urea nitrogen [Mass/Vol] 15.0 mg/dL Normal 7.0-18.0 [facility] Comment on above: Performed By: #### C VDAGA #### [facility] [address] [place] [address] Dr. Zurdo Gil Urea nitrogen/Creatinine [Mass ratio] 14.9 mg/mg Normal [facility] Comment on above: Performed By: #### C VDAGA #### [facility] [address] [place] [address] Dr. Zurdo Gil TSHon 07-15-2022 TSH 2.054 uIU/mL Normal 0.358-3.740 [facility] Comment on above: Performed By: #### C VDAGA #### [facility] [address] [place] [address] Dr. Zurdo Gil VITAMIN B12on 07-15-2022 Cobalamin (Vitamin B12) [Mass/Vol] 1980.0 pg/mL Critically high 193.0-986.0 [facility] Comment on above: Performed By: #### F T4, VITB12, VITAD #### [facility] [address] [place] [address] Dr. Zurdo Gil VITAMIN D 25 OHon 07-15-2022 VIT D 25-OH 39.5 ng/mL Normal [facility] Comment on above: Performed By: #### F T4, VITB12, VITAD #### [facility] [address] [place] [address] Dr. Zurdo Gil VIT D RANGES SEE BELOW Normal [facility] Comment on above: Result Comment: <20 ng/mL Vit D deficient 20 - <30 ng/mL Vit D insufficient 30 - 100 ng/mL Vit D sufficient >100 ng/mL Potential Toxicity Performed By: #### F T4, VITB12, VITAD #### [facility] [address] [place] [address] Dr. Zurdo Gil ASYMPTOMATIC COVID-19 ANTIGE Non 04-28-2022 EUA Statement SEE BELOW Normal [facility] Comment on above: Result Comment: This test has not been FDA cleared or approved, but has been authorized by the FDA under an Emergency Use Authorization (EUA) for use by authorized laboratories certified under CLIA that meet the requirements to perform moderate or high complexity testing. This test has been authorized only for the detection of proteins from SARS-CoV-2, not for any other viruses or pathogens. The emergency use of this test is authorized for the duration of the declaration that circumstances exist justifying the authorization of emergency use of in vitro diagnostic tests for detection and/or diagnosis of Covid-19 under section 564(b)(1) of the Act, 21 U.S.C. 360bbb-3(b)(1), unless the declaration is terminated or authorization is revoked sooner. Performed By: #### C VDAGA #### [facility] [address] [place] [address] Dr. Zurdo Gil SARS-CoV-2 (COVID-19) RNA MAYRA+probe Ql (Unsp spec) Negative Normal NEGATIVE [facility] Comment on above: Result Comment: Nega tive results are presumptive. They do not preclude infection and should not be used as the sole basis for treatment decisions. Additional confirmatory testing by a molecular method should be considered. Performed By: #### C VDAGA #### [facility] [address] [place] [address] Dr. Zurdo Gil Covid-19 PCR (CVDTB)on 03-27 SARS-CoV-2 (COVID-19) RNA MAYRA+probe Ql (Unsp spec) Detected Critically abnormal NOT DETECTED [facility] Comment on above: Result Comment: This test is not yet approved or cleared by the [place] FDA. When there are no FDA-approved or cleared tests available, and other criteria are met, FDA can make tests available under an emergency access mechanism called an Emergency Use Authorization (EUA). The EUA for this test is supported by the [employer] Installer of Health and Human Service's declaration that circumstances exist to justify the emergency use of in vitro diagnostics for the detection and/or diagnosis of the virus that causes COVID-19. This EUA will remain in effect for the duration of the COVID-19 declaration justifying emergency of IVDs, unless it is terminated or revoked by the FDA (after which the test may no longer be used). Performed By: #### C VDTBH #### [facility] [address] [place] [address] Dr. Zurdo Gil BVKNOGH-HBTT-KYDBFY-FACTOR 1 on 02-10-2022 Insulin-Like Growth Factor I 67 ng/mL Critically low 81-263 [facility] Comment on above: Performed By: #### C VDAGA #### [facility] [address] [address] [address] Zurdo Gil MICROALBUMIN/ CREATININE RAT IOon 02-07-2022 Albumin, Urine 8.6 ug/mL Normal Not Estab. [facility] Comment on above: Performed By: #### C VDAGA #### [facility] [address] [address] [address] Zurdo Gil Albumin/ Creatinine Ratio 8 mg/g creat Normal 0-29 [facility] Comment on above: Result Comment: Norm al: 0 - 29 Moderately increased: 30 - 300 Severely increased: >300 Performed By: #### C VDAGA #### [facility] [address] [place] [address] Dr. Zurdo Gil Creatinine, Urine 103.5 mg/dL Normal Not Estab. [facility] Comment on above: Performed By: #### C VDAGA #### [facility] [address] [place] [address] Dr. Zurdo Gil TESTOSTERONE, TOTALon 2021 Testosterone [Mass/Vol] ng/dL Critically high 264-916 [facility] Comment on above: Result Comment: Adul t male reference interval is based on a population of healthy nonobese males (BMI <30) between 19 and 39 years old. Elen et.al. JCEM 2017,102;[id number]. PMID: [id number]. Performed By: #### V ITAD #### [facility] [address] [place] [address] Dr. Zurdo Gil GLYCOHEMOGLOBIN A1Con 2021 ADA RECOMMENDATION SEE BELOW Normal [facility] Comment on above: Result Comment: ADA RECOMMENDED LIMIT 4.0 - 6.0 ADA THERAPEUTIC TARGET < 7.0 ACTION SUGGESTED > 7.0 Performed By: #### A 1C #### [facility] [address] [place] [address] Dr. Zurdo Gil Glucose [Mass/Vol] 154 mg/dL Normal [facility] Comment on above: Performed By: #### A 1C #### [facility] [address] [place], [place] [id number] Dr. Zurdo Gil HbA1c (Bld) [Mass fraction] 7.0 % Critically high 4.5-6.2 [facility] Comment on above: Performed By: #### A 1C #### [facility] [address] [place] [address] Dr. Zurdo Gil LIPID PROFILEon 02-06-2022 CHOL-HDL RATIO NORM SEE BELOW Normal [facility] Comment on above: Result Comment: 3.3 - 4.4 LOW RISK 4.4 - 7.1 AVERAGE RISK 7.1 - 11.0 MODERATE RISK >11.0 HIGH RISK Performed By: #### M CRR #### [facility] [address] [address] [address] Zurdo Gil Cholesterol [Mass/Vol] 192 mg/dL Normal <=200 [facility] Comment on above: Performed By: #### M CRR #### [facility] [address] [place] [address] Dr. Zurdo Gil Cholesterol in HDL [Mass/Vol] 35 mg/dL Critically low 40-60 [facility] Comment on above: Performed By: #### M CRR #### [facility] [address] [address] [address] Zurdo Gil Cholesterol in LDL [Mass/Vol] 97.6 mg/dL Normal [facility] Comment on above: Performed By: #### M CRR #### [facility] [address] [address] [address] Zurdo Gil Cholesterol.total/Ch olesterol in HDL [Mass ratio] 5.5 {ratio} Normal [facility] Comment on above: Performed By: #### M CRR #### [facility] [address] [address] [address] Zurdo Gil HDL NORMAL > or = 60 mg/dl - LOW CARDIOVASCULAR RISK <40 mg/dl - HIGH CARDIOVASCULAR RISK Normal [facility] Comment on above: Performed By: #### M CRR #### [facility] [address] [address] [address] Zurdo Gil LDL CALC NORMAL SEE BELOW Normal [facility] Comment on above: Result Comment: <100 mg/dl OPTIMAL 100 - 129 mg/dl NEAR OR ABOVE OPTIMAL 130 - 159 mg/dl BORDERLINE HIGH 160 - 189 mg/dl HIGH >190 mg/dl VERY HIGH Performed By: #### M CRR #### [facility] [address] [place] [address] Dr. Zurdo Gil Triglyceride [Mass/Vol] 297 mg/dL Critically high <=150 [facility] Comment on above: Performed By: #### M CRR #### [facility] [address] [place] [address] Dr. Zurdo Gil VLDL CALC 59.4 mg/dL Normal [facility] Comment on above: Performed By: #### M CRR #### [facility] [address] [place] [address] Dr. Zurdo Gil PROF 14(COMP METB)on 022 Albumin [Mass/Vol] 3.7 g/dL Normal 3.4-5.0 [facility] Comment on above: Performed By: #### V ITAD #### [facility] [address] [place] [address] Dr. Zurdo Gil Albumin/Globulin [Mass ratio] 1.1 {ratio} Normal [facility] Comment on above: Performed By: #### V ITAD #### [facility] [address] [place] [address] Dr. Zurdo Gil ALP [Catalytic activity/Vol] 65 U/L Normal 46-116 [facility] Comment on above: Performed By: #### V ITAD #### [facility] [address] [place] [address] Dr. Zurdo Gil ALT [Catalytic activity/Vol] 38 U/L Normal 16-63 [facility] Comment on above: Performed By: #### V ITAD #### [facility] [address] [place] [address] Dr. Zurdo Gil Anion gap [Moles/Vol] 13.1 mmol/L Normal [facility] Comment on above: Performed By: #### V ITAD #### [facility] [address] [place] [address] Dr. Zurdo Gil AST [Catalytic activity/Vol] 24 U/L Normal 15-37 [facility] Comment on above: Performed By: #### V ITAD #### [facility] [address] [place] [address] Dr. Zurdo Gil Bilirubin [Mass/Vol] 0.8 mg/dL Normal 0.2-1.0 [facility] Comment on above: Performed By: #### V ITAD #### [facility] [address] [place] [address] Dr. Zurdo Gil Calcium [Mass/Vol] 8.5 mg/dL Normal 8.5-10.1 [facility] Comment on above: Performed By: #### V ITAD #### [facility] [address] [place] [address] Dr. Zurdo Gil Chloride [Moles/Vol] 101 mmol/L Normal 98-107 [facility] Comment on above: Performed By: #### V ITAD #### [facility] [address] [place] [address] Dr. Zurdo Gil CO2 [Moles/Vol] 25.4 mmol/L Normal 21.0-32.0 [facility] Comment on above: Performed By: #### V ITAD #### [facility] [address] [place] [address] Dr. Zurdo Gil Creatinine [Mass/Vol] 1.24 mg/dL Normal 0.70-1.30 [facility] Comment on above: Performed By: #### V ITAD #### [facility] [address] [place] [address] Dr. Zurdo Gil EGFR-AF CZECH >60 Normal >=60 [facility] Comment on above: Performed By: #### V ITAD #### [facility] [address] [place] [address] Dr. Zurdo Gil EGFR-NON AF CZECH >60 Normal >=60 [facility] Comment on above: Performed By: #### V ITAD #### [facility] [address] [place] [address] Dr. Zurdo Gil Globulin (S) [Mass/Vol] 3.5 g/dL Normal [facility] Comment on above: Performed By: #### V ITAD #### [facility] [address] [place] [address] Dr. Zurdo Gil Glucose [Mass/Vol] 203 mg/dL Critically high 74-106 [facility] Comment on above: Performed By: #### V ITAD #### [facility] [address] [place] [address] Dr. Zurdo Gil Potassium [Moles/Vol] 3.5 mmol/L Normal 3.5-5.1 [facility] Comment on above: Performed By: #### V ITAD #### [facility] [address] [place] [address] Dr. Zurdo Gil Protein [Mass/Vol] 7.2 g/dL Normal 6.4-8.2 [facility] Comment on above: Performed By: #### V ITAD #### [facility] [address] [place] [address] Dr. Zurdo Gil Sodium [Moles/Vol] 136 mmol/L Normal 136-145 [facility] Comment on above: Performed By: #### V ITAD #### [facility] [address] [place] [address] Dr. Zurdo Gil Urea nitrogen [Mass/Vol] 17.0 mg/dL Normal 7.0-18.0 [facility] Comment on above: Performed By: #### V ITAD #### [facility] [address] [place] [address] Dr. Zurdo Gil Urea nitrogen/Creatinine [Mass ratio] 13.7 mg/mg Normal [facility] Comment on above: Performed By: #### V ITAD #### [facility] [address] [place] [address] Dr. Zurdo Gil Covid-19 PCR ([facility])on 12-23 SARS-CoV-2 (COVID-19) RNA MAYRA+probe Ql (Unsp spec) Not detected Normal NOT DETECTED [facility] Comment on above: Result Comment: When diagnostic testing is negative, the possibility of a false negative should be considered in the context of a patient's recent exposures and the presence of clinical signs and symptoms consistent with SARS-CoV-2. This test is not yet approved or cleared by the [place] FDA. When there are no FDA-approved or cleared tests available, and other criteria are met, FDA can make tests available under an emergency access mechanism called an Emergency Use Authorization (EUA). The EUA for this test is supported by the [employer] Installer of Health and Human Service's declaration that circumstances exist to justify the emergency use of in vitro diagnostics for the detection and/or diagnosis of the virus that causes COVID-19. This EUA will remain in effect for the duration of the COVID-19 declaration justifying emergency of IVDs, unless it is terminated or revoked by the FDA (after which the test may no longer be used). Performed By: #### C AGA #### [facility] [address] [place] [address] Dr. Zurdo Gil MRI KNEE LT WO CONon 022 MRI KNEE LT WO CON EXAMINATION: MRI KNEE LT WO CON HISTORY: Pain of left knee joint COMPARISON: No relevant comparison available. TECHNIQUE: A complete multi-planar MRI was performed. FINDINGS: MEDIAL COMPARTMENT MEDIAL MENISCUS: Undersurface tear and intrasubstance degeneration posterior horn. CARTILAGE: Marked thinning, with suspected focal defect overlying the weightbearing surface of the femoral condyle with mild marrow edema. BONES: Large periarticular degenerative osteophytes. MCL AND MEDIAL CAPSULE: Grade I sprain of the medial collateral ligament. LATERAL COMPARTMENT LATERAL MENISCUS: No visible tear or significant degeneration. CARTILAGE: No visible defect or appreciable thinning. BONES: Small periarticular osteophytes. No marrow pathology or fracture. LCL/POSTEROLAT COMPLEX: Normal lateral collateral ligament, fascicles, lateral capsule and ligaments. ANTERIOR COMPARTMENT PATELLA: Periarticular degenerative osteitis. No fracture or marrow pathology. CARTILAGE: Focal tear at the apex midway between superior and inferior pole. No subchondral edema. TENDONS: Normal. EFFUSION: Moderate joint effusion. ACL: Normal appearing ligament. PCL: Normal appearing ligament. MENISCOFEMORAL: Normal meniscofemoral ligaments. OTHER: Small Alfaro's cyst. IMPRESSION: 1. Medial meniscus posterior horn undersurface tear. 2. Grade IV chondromalacia medial femoral condyle. 3. Grade 1 sprain of the medial collateral ligament. 4. Grade III chondromalacia of patella apex. 5. Moderate joint effusion, tricompartmental periarticular degenerative osteophytes, and small Alfaro's cyst. Electronically authenticated by: QUINTON SALGADO Date: 2022-01-10 17:55 Normal [facility] XR FOOT RT MIN 3 VIEWSon XR FOOT RT MIN 3 VIEWS STUDY: XR FOOT RT MIN 3 VIEWS HISTORY: Pain in right foot; rolled foot while walking, lateral pain COMPARISON: None available FINDINGS: There is no fracture, dislocation, or focal osseous destruction. Mild-moderate degenerative changes at the first MTP joint. Degenerative spurring is additionally noted along the dorsal midfoot. There is a large os peroneum. Bulky osteophytes at the posterior calcaneus at the Achilles insertion favor chronic enthesopathic changes with suspected superimposed remote injury changes. Associated distal Achilles thickening is demonstrated. Mild soft tissue swelling/prominence is present along the lateral foot. IMPRESSION: 1. Lateral soft tissue swelling/prominence without acute osseous abnormality. 2. Chronic changes at the posterior calcaneus suggestive of chronic Achilles tendinopathy and suspected changes of remote injury. 3. Multifocal degenerative changes, as above. Electronically authenticated by: ZOEY BENOIT Date: 2021-11-11 15:37 Normal [facility] MHTOLJS-UBXY-MNQOSA-FACTOR 1 on 11-06-2021 Insulin-Like Growth Factor I 66 ng/mL Critically low 81-263 [facility] Comment on above: Performed By: #### C VDAGA #### [facility] [address] [address] [address] Zurdo Gil TESTOSTERONE, TOTALon 2021 Testosterone [Mass/Vol] 895 ng/dL Normal 264-916 [facility] Comment on above: Result Comment: Adul t male reference interval is based on a population of healthy nonobese males (BMI <30) between 19 and 39 years old. Elen, et.al. JCEM 2017,102;1236-2080. PMID: [id number]. Performed By: #### M CRR #### [facility] [address] [address] [address] Zurdo Gil GLYCOHEMOGLOBIN A1Con 2021 ADA RECOMMENDATION SEE BELOW Normal [facility] Comment on above: Result Comment: ADA RECOMMENDED LIMIT 4.0 - 6.0 ADA THERAPEUTIC TARGET < 7.0 ACTION SUGGESTED > 7.0 Performed By: #### C VDAGA #### [facility] [address] [place] [address] Dr. Zurdo Gil Glucose [Mass/Vol] 203 mg/dL Normal [facility] Comment on above: Performed By: #### C VDAGA #### [facility] [address] [place] [address] Dr. Zurdo Gil HbA1c (Bld) [Mass fraction] 8.7 % Critically high 4.5-6.2 [facility] Comment on above: Performed By: #### C VDAGA #### [facility] [address] [place] [address] Dr. Zurdo Gil LIPID PROFILEon 11-04-2021 CHOL-HDL RATIO NORM SEE BELOW Normal [facility] Comment on above: Result Comment: 3.3 - 4.4 LOW RISK 4.4 - 7.1 AVERAGE RISK 7.1 - 11.0 MODERATE RISK >11.0 HIGH RISK Performed By: #### V ITAD #### [facility] [address] [place] [address] Dr. Zurdo Gil Cholesterol [Mass/Vol] 200 mg/dL Normal <=200 [facility] Comment on above: Performed By: #### V ITAD #### [facility] [address] [place] [address] Dr. Zurdo Gil Cholesterol in HDL [Mass/Vol] 39 mg/dL Critically low 40-60 [facility] Comment on above: Performed By: #### V ITAD #### [facility] [address] [place] [address] Dr. Zurdo Gil Cholesterol in LDL [Mass/Vol] 112.2 mg/dL Normal [facility] Comment on above: Performed By: #### V ITAD #### [facility] [address] [place] [address] Dr. Zurdo Gil Cholesterol.total/Ch olesterol in HDL [Mass ratio] 5.1 {ratio} Normal [facility] Comment on above: Performed By: #### V ITAD #### [facility] [address] [address] [address] Zurdo Gil HDL NORMAL > or = 60 mg/dl - LOW CARDIOVASCULAR RISK <40 mg/dl - HIGH CARDIOVASCULAR RISK Normal [facility] Comment on above: Performed By: #### V ITAD #### [facility] [address] [address] [address] Zurdo Gil LDL CALC NORMAL SEE BELOW Normal [facility] Comment on above: Result Comment: <100 mg/dl OPTIMAL 100 - 129 mg/dl NEAR OR ABOVE OPTIMAL 130 - 159 mg/dl BORDERLINE HIGH 160 - 189 mg/dl HIGH >190 mg/dl VERY HIGH Performed By: #### V ITAD #### [facility] [address] [place] [address] Dr. Zurdo Gil Triglyceride [Mass/Vol] 244 mg/dL Critically high <=150 [facility] Comment on above: Performed By: #### V ITAD #### [facility] [address] [address] [address] Zurdo Gil VLDL CALC 48.8 mg/dL Normal [facility] Comment on above: Performed By: #### V ITAD #### [facility] [address] [address] [address] Zurdo Gil MICROALB CREAT RATIO RANDOMo n 11-04-2021 mALB 4.9 mg/L Normal <=30.0 [facility] Comment on above: Performed By: #### V ITAD #### [facility] [address] [place] [address] Dr. Zurdo Gil MALB CR RATIO 19.9 mg/g Normal 0.0-29.9 [facility] Comment on above: Performed By: #### V ITAD #### [facility] [address] [place] [address] Dr. Zurdo Gil MALB CR RATIO RANGE SEE BELOW Normal [facility] Comment on above: Result Comment: NO M ICROALBUMINURIA 0-29 MG/G CLINICAL MICROALBUMINURIA 30-300 MG/G MACROALBUMINURIA >300 MG/G Performed By: #### V ITAD #### [facility] [address] [place] [address] Dr. Zurdo Gil URINE CREAT 245.62 mg/dL Normal 20.00-300.00 [facility] Comment on above: Performed By: #### V ITAD #### [facility] [address] [place] [address] Dr. Zurdo Gil PROF 14(COMP METB)on 022 Albumin [Mass/Vol] 3.8 g/dL Normal 3.4-5.0 [facility] Comment on above: Performed By: #### V ITAD #### [facility] [address] [place] [address] Dr. Zurdo Gil Albumin/Globulin [Mass ratio] 1.1 {ratio} Normal [facility] Comment on above: Performed By: #### V ITAD #### [facility] [address] [place] [address] Dr. Zurdo Gil ALP [Catalytic activity/Vol] 85 U/L Normal 46-116 [facility] Comment on above: Performed By: #### V ITAD #### [facility] [address] [place] [address] Dr. Zurdo Gil ALT [Catalytic activity/Vol] 54 U/L Normal 16-63 [facility] Comment on above: Performed By: #### V ITAD #### [facility] [address] [place] [address] Dr. Zurdo Gil Anion gap [Moles/Vol] 15.5 mmol/L Normal [facility] Comment on above: Performed By: #### V ITAD #### [facility] [address] [place] [address] Dr. Zurdo Gil AST [Catalytic activity/Vol] 40 U/L Critically high 15-37 [facility] Comment on above: Performed By: #### V ITAD #### [facility] [address] [place] [address] Dr. Zurdo Gil Bilirubin [Mass/Vol] 0.7 mg/dL Normal 0.2-1.0 [facility] Comment on above: Performed By: #### V ITAD #### [facility] [address] [place] [address] Dr. Zurdo Gil Calcium [Mass/Vol] 9.1 mg/dL Normal 8.5-10.1 [facility] Comment on above: Performed By: #### V ITAD #### [facility] [address] [place] [address] Dr. Zurdo Gil Chloride [Moles/Vol] 102 mmol/L Normal 98-107 [facility] Comment on above: Performed By: #### V ITAD #### [facility] [address] [place] [address] Dr. Zurdo Gil CO2 [Moles/Vol] 22.9 mmol/L Normal 21.0-32.0 [facility] Comment on above: Performed By: #### V ITAD #### [facility] [address] [place] [address] Dr. Zurdo Gil Creatinine [Mass/Vol] 1.13 mg/dL Normal 0.70-1.30 [facility] Comment on above: Performed By: #### V ITAD #### [facility] [address] [place] [address] Dr. Zurdo Gil EGFR-AF CZECH >60 Normal >=60 [facility] Comment on above: Performed By: #### V ITAD #### [facility] [address] [place] [address] Dr. Zurdo Gil EGFR-NON AF CZECH >60 Normal >=60 [facility] Comment on above: Performed By: #### V ITAD #### [facility] [address] [place] [address] Dr. Zurdo Gil Globulin (S) [Mass/Vol] 3.6 g/dL Normal [facility] Comment on above: Performed By: #### V ITAD #### [facility] [address] [place] [address] Dr. Zurdo Gil Glucose [Mass/Vol] 219 mg/dL Critically high 74-106 [facility] Comment on above: Performed By: #### V ITAD #### [facility] [address] [place] [address] Dr. Zurdo Gil Potassium [Moles/Vol] 3.4 mmol/L Critically low 3.5-5.1 [facility] Comment on above: Performed By: #### V ITAD #### [facility] [address] [place] [address] Dr. Zurdo Gil Protein [Mass/Vol] 7.4 g/dL Normal 6.4-8.2 [facility] Comment on above: Performed By: #### V ITAD #### [facility] [address] [address] [address] Zurdo Gil Sodium [Moles/Vol] 137 mmol/L Normal 136-145 [facility] Comment on above: Performed By: #### V ITAD #### [facility] [address] [place] [address] Dr. Zurdo Gil Urea nitrogen [Mass/Vol] 21.0 mg/dL Critically high 7.0-18.0 [facility] Comment on above: Performed By: #### V ITAD #### [facility] [address] [place] [address] Dr. Zurdo Gil Urea nitrogen/Creatinine [Mass ratio] 18.6 mg/mg Normal [facility] Comment on above: Performed By: #### V ITAD #### [facility] [address] [place] [address] Dr. Zurdo Gil VITAMIN D 25 OHon 11-04-2021 VIT D 25-OH 39.7 ng/mL Normal [facility] Comment on above: Performed By: #### V ITAD #### [facility] [address] [place] [address] Dr. Zurdo Gil VIT D RANGES SEE BELOW Normal [facility] Comment on above: Result Comment: <20 ng/mL Vit D deficient 20 - <30 ng/mL Vit D insufficient 30 - 100 ng/mL Vit D sufficient >100 ng/mL Potential Toxicity Performed By: #### V ITAD #### [facility] [address] [place] [address] Dr. Zurdo Gil POC GLUCOSE LABon 10-24-2020 Glucose [Mass/Vol] 189 mg/dL High 70-100 [facility] Comment on above: Performed By: #### [id number] #### [facility] [address] [place] [address], [place] Glucose [Mass/Vol] 169 mg/dL High 70-100 [facility] Comment on above: Performed By: #### [id number] #### [facility] [address] [place] [address], [place] POC GLUCOSE LABon 10-23-2020 Glucose [Mass/Vol] 175 mg/dL High 70-100 [facility] Comment on above: Performed By: #### [id number] #### [facility] [address] [place] [address], [place] Glucose [Mass/Vol] 206 mg/dL High 70-100 [facility] Comment on above: Performed By: #### [id number] #### [facility] [address] [place] [address], [place] Glucose [Mass/Vol] 172 mg/dL High 70-100 [facility] Comment on above: Performed By: #### [id number] #### [facility] [address] [place] [address], [place] Glucose [Mass/Vol] 180 mg/dL High 70-100 [facility] on above: Performed By: #### [id number] #### [facility] [address] [place] [address], [place] POC GLUCOSE LABon 10-22-2020 Glucose [Mass/Vol] 159 mg/dL High 70-100 [facility] Comment on above: Performed By: #### [id number] #### [facility] [address] [place] [address], [place] Glucose [Mass/Vol] 197 mg/dL High 70-100 [facility] Comment on above: Performed By: #### [id number] #### [facility] [address] [place] [address], [facility] Glucose [Mass/Vol] 185 mg/dL High 70-100 [facility] Comment on above: Performed By: #### [id number] #### [facility] [address] [place] [address], [facility] Glucose [Mass/Vol] 160 mg/dL High 70-100 [facility] Comment on above: Performed By: #### [id number] #### [facility] [address] [place] [address], [facility] PROTHROMBIN TIMEon 1 INR Coag (PPP) [Relative time] 1.00 {INR} Normal 0.91-1.16 [facility] Comment on above: Order Comment: Unkno wn Result Comment: ACCC P RECOMMENDED INR FOR WARFARIN THERAPY ------- ------- CONDITION INR PROPHYLAXIS OF VENOUS THROMBOSIS 2-3 (HIGH-RISK SURGERY) TREATMENT OF VENOUS THROMBOSIS 2-3 TREATMENT OF PULMONARY EMBOLISM 2-3 PREVENTION OF SYSTEMIC EMBOLISM: 2-3 ACUTE MYOCARDIAL INFARCTION TISSUE HEART VALVES VALVULAR HEART DISEASE ATRIAL FIBRILLATION RECURRENT SYSTEMIC EMBOLISM MECHANICAL HEART VALVE 2.5-3.5 FROM: ORAL ANTICOAGULANTS. MECHANISM OF ACTION, CLINICAL EFFECTIVENESS, AND OPTIMAL THERAPEUTIC RANGE. CHEST 1995;108:231S-246S. Performed By: #### 5 [id number] #### [facility] [address] [place] [address], [facility] PT Coag (PPP) [Time] 13.2 s Normal 12.3-14.8 [facility] Comment on above: Order Comment: Unkno wn Result Comment: ALL RESULTS MUST BE INTERPRETED WITH RESPECT TO BLOOD DRAWING ARTIFACT OR DILUTION ERROR OF ANTICOAGULANT AT THE TIME OF SAMPLING. Performed By: #### 5 [id number] #### [address] CERVICAL SPINE 2 OR 3 VWSon 10-21-2020 CERVICAL SPINE 2 OR 3 S [facility] Department of Radiology [address] [place] [id number] Patient Name: ALPHONSO COLEMAN : 1975 Sex: M Age: Race: White Pt. 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 Hardware evaluation. QUESTION FOR THE RADIOLOGIST: Hardware Evaluation, AP \EANDE\ Lat PROTOCOL: AP, Odontoid and Lateral views were obtained. COMPARISON: None FINDINGS: Multilevel fusion of the posterior cervical spine from C3 through C7 Alignment satisfactory. C1-C2 unremarkable. Multilevel endplate spurring. Lung apices clear. IMPRESSION: Stable alignment multilevel fusion. Electronically signed: Adeline Bautista. Transcribed by: [email or web address], User Resident: Electronically Signed by: ADELINE BAUTISTA @ 10/22/2020 08:01 AM Normal [facility] Comment on above: Order Comment: Hardw are Evaluation, AP AND Lat POC GLUCOSE LABon 10-21-2020 Glucose [Mass/Vol] 164 mg/dL High 70-100 [facility] Comment on above: Performed By: #### [id number] #### [facility] [address] [place] [address], [facility] Glucose [Mass/Vol] 170 mg/dL High 70-100 [facility] Comment on above: Performed By: #### [id number] #### [facility] [address] [place] [address], [facility] Glucose [Mass/Vol] 194 mg/dL High 70-100 [facility] Comment on above: Performed By: #### [id number] #### [facility] [address] [place] [address], [facility] PROTHROMBIN TIMEon INR Coag (PPP) [Relative time] 0.99 {INR} Normal 0.91-1.16 [facility] Comment on above: Order Comment: Unkno wn Result Comment: ACCC P RECOMMENDED INR FOR WARFARIN THERAPY ------- ------- CONDITION INR PROPHYLAXIS OF VENOUS THROMBOSIS 2-3 (HIGH-RISK SURGERY) TREATMENT OF VENOUS THROMBOSIS 2-3 TREATMENT OF PULMONARY EMBOLISM 2-3 PREVENTION OF SYSTEMIC EMBOLISM: 2-3 ACUTE MYOCARDIAL INFARCTION TISSUE HEART VALVES VALVULAR HEART DISEASE ATRIAL FIBRILLATION RECURRENT SYSTEMIC EMBOLISM MECHANICAL HEART VALVE 2.5-3.5 FROM: ORAL ANTICOAGULANTS. MECHANISM OF ACTION, CLINICAL EFFECTIVENESS, AND OPTIMAL THERAPEUTIC RANGE. CHEST 1995;108:231S-246S. Performed By: #### [id number] #### [facility] [address] [place] [address], [facility] PT Coag (PPP) [Time] 13.1 s Normal 12.3-14.8 [facility] Comment on above: Order Comment: Unkno wn Result Comment: ALL RESULTS MUST BE INTERPRETED WITH RESPECT TO BLOOD DRAWING ARTIFACT OR DILUTION ERROR OF ANTICOAGULANT AT THE TIME OF SAMPLING. Performed By: #### [id number] #### [facility] [address] [place] [address], [facility] BASIC METABOLIC PANELon 05-2 Calcium [Mass/Vol] 8.7 mg/dL Normal 8.6-10.3 [facility] Comment on above: Order Comment: No: D o not add to previous draw Performed By: #### [id number] #### [facility] [address] [place] [address], [facility] Chloride [Moles/Vol] 99 mmol/L Normal 98-107 [facility] Comment on above: Order Comment: No: D o not add to previous draw Performed By: #### [id number] #### [facility] [address] [place] [address], [facility] CO2 [Moles/Vol] 26 mmol/L Normal 21-31 The [facility] Comment on above: Order Comment: No: D o not add to previous draw Performed By: #### 8 [id number] #### [facility] [address] [place] [address], [facility] Creatinine [Mass/Vol] 1.04 mg/dL Normal 0.70-1.30 The [facility] Comment on above: Order Comment: No: D o not add to previous draw Performed By: #### 8 [id number] #### [facility] [address] [place] [address], [place] GFR/1.73 sq M.predicted among blacks MDRD (S/P/Bld) [Vol rate/Area] mL/min/{1.73_m2} Normal >60 The [facility] Comment on above: Order Comment: No: D o not add to previous draw Performed By: #### 8 [id number] #### [facility] [address] [place] [address], [place] GFR/1.73 sq M.predicted among non-blacks MDRD (S/P/Bld) [Vol rate/Area] mL/min/{1.73_m2} Normal >60 The [facility] Comment on above: Order Comment: No: D o not add to previous draw Performed By: #### 8 [id number] #### [facility] [address] [place] [address], [place] Glucose [Mass/Vol] 211 mg/dL High 70-100 The [facility] Comment on above: Order Comment: No: D o not add to previous draw Performed By: #### 8 [id number] #### [facility] [address] [place] [address], [place] Potassium [Moles/Vol] 3.9 mmol/L Normal 3.5-5.1 The [facility] Comment on above: Order Comment: No: D o not add to previous draw Performed By: #### 8 [id number] #### [facility] [address] [place] [address], [place] Sodium [Moles/Vol] 134 mmol/L Low 136-145 The [facility] Comment on above: Order Comment: No: D o not add to previous draw Performed By: #### 8 [id number] #### [facility] [address] [place] [address], [place] Urea nitrogen [Mass/Vol] 14 mg/dL Normal 7-25 The [facility] Comment on above: Order Comment: No: D o not add to previous draw Performed By: #### 8 [id number] #### [facility] [address] [place] [id number], [facility] CBC W/DIFFon 10-20-2020 ABS IMM GRANS 0.1 10*3/uL Normal 0.0-0.2 The [facility] Comment on above: Order Comment: No: D o not add to previous draw Performed By: #### 8 [id number] #### [facility] [address] [place] [address], [facility] ABS NEUTROPHILS 10.2 10*3/uL High 1.6-7.6 The [facility] Comment on above: Order Comment: No: D o not add to previous draw Performed By: #### 8 [id number] #### [facility] [address] [place] [id number], [facility] Basophils (Bld) [#/Vol] 0.1 10*3/uL Normal 0.0-0.2 The [facility] Comment on above: Order Comment: No: D o not add to previous draw Performed By: #### 8 [id number] #### [facility] [address] [place] [id number], [facility] Basophils/100 WBC (Bld) 0.4 % Normal 0.0-1.0 The [facility] Comment on above: Order Comment: No: D o not add to previous draw Performed By: #### 8 [id number] #### [facility] [address] [place] [address], [facility] Eosinophils (Bld) [#/Vol] 0.1 10*3/uL Normal 0.0-0.5 The [facility] Comment on above: Order Comment: No: D o not add to previous draw Performed By: #### 8 [id number] #### [facility] [address] [place] [address], [facility] Eosinophils/100 WBC (Bld) 0.8 % Normal 0.0-6.0 The [facility] Comment on above: Order Comment: No: D o not add to previous draw Performed By: #### 8 [id number] #### [facility] [address] [place] [id number], [facility] Erythrocyte distribution width (RBC) [Ratio] 12.2 % Normal 11.5-15.0 The [facility] Comment on above: Order Comment: No: D o not add to previous draw Performed By: #### 8 [id number] #### [facility] [address] [place] [address], [facility] Hematocrit (Bld) [Volume fraction] 44.9 % Normal 39.0-50.0 The [facility] Comment on above: Order Comment: No: D o not add to previous draw Performed By: #### 8 [id number] #### [facility] [address] [place] [address], [facility] Hemoglobin (Bld) [Mass/Vol] 15.7 g/dL Normal 13.0-17.0 The [facility] Comment on above: Order Comment: No: D o not add to previous draw Performed By: #### 8 [id number] #### [facility] [address] [place] [id number], [facility] IMMATURE GRANS 0.4 % Normal 0.0-1.0 The [facility] Comment on above: Order Comment: No: D o not add to previous draw Performed By: #### 8 [id number] #### [facility] [address] [place] [id number], [facility] Lymphocytes (Bld) [#/Vol] 2.3 10*3/uL Normal 1.2-4.0 The [facility] Comment on above: Order Comment: No: D o not add to previous draw Performed By: #### 8 [id number] #### [facility] [address] [place] [address], [place] Lymphocytes/100 WBC (Bld) 16.1 % Low 20.0-45.0 The [facility] Comment on above: Order Comment: No: D o not add to previous draw Performed By: #### 8 [id number] #### [facility] [address] [place] [address], [facility] MCH (RBC) [Entitic mass] 32.6 pg Normal 27.0-33.0 The [facility] Comment on above: Order Comment: No: D o not add to previous draw Performed By: #### 8 [id number] #### [facility] [address] [place] [address], [facility] MCHC (RBC) [Mass/Vol] 35.0 g/dL Normal 32.0-35.0 The [facility] Comment on above: Order Comment: No: D o not add to previous draw Performed By: #### 8 [id number] #### [facility] [address] [place] [address], [facility] MCV (RBC) [Entitic vol] 93.2 fL Normal 82.0-98.0 The [facility] Comment on above: Order Comment: No: D o not add to previous draw Performed By: #### 8 [id number] #### [facility] [address] [place] [address], [facility] Monocytes (Bld) [#/Vol] 1.4 10*3/uL High 0.1-1.0 The [facility] Comment on above: Order Comment: No: D o not add to previous draw Performed By: #### 8 [id number] #### [facility] [address] [place] [address], [facility] MONOS 10.2 % Normal 5.0-12.0 The [facility] Comment on above: Order Comment: No: D o not add to previous draw Performed By: #### 8 [id number] #### [facility] [address] [place] [address], [facility] Neutrophils/100 WBC (Bld) 72.1 % High 40.0-72.0 The [facility] Comment on above: Order Comment: No: D o not add to previous draw Performed By: #### 8 [id number] #### [facility] [address] [place] [address], [facility] Nucleated RBC/100 WBC (Bld) [Ratio] 0 % Normal 0-0 The [facility] Comment on above: Order Comment: No: D o not add to previous draw Performed By: #### 8 [id number] #### [facility] [address] [place] [address], [place] PLAT CNT 204 10*3/uL Normal 150-400 The [facility] Comment on above: Order Comment: No: D o not add to previous draw Performed By: #### 8 [id number] #### [facility] [address] [place] [address], [facility] RBC (Bld) [#/Vol] 4.82 10*6/uL Normal 4.20-5.70 The [facility] Comment on above: Order Comment: No: D o not add to previous draw Performed By: #### 8 [id number] #### [facility] [address] [place] [address], [facility] WBC (Bld) [#/Vol] 14.17 10*3/uL High 4.00-10.60 The [facility] Comment on above: Order Comment: No: D o not add to previous draw Performed By: #### 8 [id number] #### [facility] [address] [place] [address], [facility] POC GLUCOSE LABon 10-20-2020 Glucose [Mass/Vol] 135 mg/dL High 70-100 The [facility] Comment on above: Performed By: #### 8 [id number] #### [facility] [address] [place] [id number], [facility] Glucose [Mass/Vol] 179 mg/dL High 70-100 The [facility] Comment on above: Performed By: #### 8 [id number] #### [facility] [address] [place] [address], [facility] Glucose [Mass/Vol] 213 mg/dL High 70-100 The [facility] Comment on above: Performed By: #### 8 [id number] #### [facility] [address] [place] [address], [facility] Glucose [Mass/Vol] 185 mg/dL High 70-100 The [facility] Comment on above: Performed By: #### 8 [id number] #### [facility] [address] [place] [address], [facility] PROTHROMBIN TIMEon 1 INR Coag (PPP) [Relative time] 1.02 {INR} Normal 0.91-1.16 The [facility] Comment on above: Order Comment: No: D o not add to previous draw Result Comment: ACCC P RECOMMENDED INR FOR WARFARIN THERAPY ------- ------- CONDITION INR PROPHYLAXIS OF VENOUS THROMBOSIS 2-3 (HIGH-RISK SURGERY) TREATMENT OF VENOUS THROMBOSIS 2-3 TREATMENT OF PULMONARY EMBOLISM 2-3 PREVENTION OF SYSTEMIC EMBOLISM: 2-3 ACUTE MYOCARDIAL INFARCTION TISSUE HEART VALVES VALVULAR HEART DISEASE ATRIAL FIBRILLATION RECURRENT SYSTEMIC EMBOLISM MECHANICAL HEART VALVE 2.5-3.5 FROM: ORAL ANTICOAGULANTS. MECHANISM OF ACTION, CLINICAL EFFECTIVENESS, AND OPTIMAL THERAPEUTIC RANGE. CHEST 1995;108:231S-246S. Performed By: #### 8 [id number] #### [facility] [address] [place] [address], [facility] PT Coag (PPP) [Time] 13.4 s Normal 12.3-14.8 The [facility] Comment on above: Order Comment: No: D o not add to previous draw Result Comment: ALL RESULTS MUST BE INTERPRETED WITH RESPECT TO BLOOD DRAWING ARTIFACT OR DILUTION ERROR OF ANTICOAGULANT AT THE TIME OF SAMPLING. Performed By: #### 8 [id number] #### [address] CERVICAL SPINE 2 OR 3 [facility] 10-19-2020 CERVICAL SPINE 2 OR 3 [facility] Department of Radiology [address] [place] [id number] Patient Name: ALPHONSO COLEMAN : 1975 Sex: M Age: Race: White Pt. Location: OUT Patient Status: Ordered Date: 10/19/2020 7:30:00 AM Completed Date: 10/19/2020 12:17 PM Requesting Provider: EDI JIMENEZ Attending Provider: EDI JIMENEZ Report Copy To: Signs & Symptoms: C3-7 POSTERIOR CERVICAL DISCECTOMY AND FUSION History: Comments: C3-7 POSTERIOR CERVICAL DISCECTOMY AND FUSION Exam: CERVICAL SPINE [address] [facility] CERVICAL SPINE [address] [facility] CLINICAL INFORMATION: Dr Jimenez and Dr Kahn used 37 seconds of fluoro time for C3-7 posterior fusion bronze c-arm in 0740 out 1210 COMPARISON: None. IMPRESSION: 1. Intraoperative fluoroscopy provided to the clinical service for cervical spine fusion. Approximately 9 images obtained. Electronically signed: Mg Ryder. Transcribed by: [email or web address], User Resident: Electronically Signed by: MG RYDER @ 10/19/2020 01:55 PM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
[2023-10-05 09:02] VITALS: BP 130/72; PULSE 70; O2SAT 93
[2023-10-05] MEDS: IOHEXOL 240 MG/ML - 10 ML VIAL INJ (09:03)
[2023-10-05] MEDS: BUPIVACAINE HCL 0.25% PF 25 MG/10 ML VIAL INJ (09:03)
[2023-10-05] MEDS: 0.9 % SODIUM CHLORIDE 10 ML SYRINGE - SALINE FLUSH INJ (09:03)
[2023-10-05] MEDS: LIDOCAINE HCL 2% PF 100 MG/5 ML VIAL INJ (09:04)
[2023-10-05] MEDS: TRIAMCINOLONE ACETONIDE 40 MG/ML VIAL INJ (09:04)
[2023-10-05 09:05] VITALS: BP 133/73; PULSE 76; O2SAT 95
--- NOTE | 2023-10-05 09:06 | P.ON_ITS ---
Date of procedure: 10/05/23 Pre-op diagnosis: Lumbar stenosis with neurogenic claudication Post-op diagnosis: same as pre-op Procedure: Procedure: Right L3-4, L4-5 transforaminal epidural steroid injection Medications: Bupivacaine 0.25% 2cc, lidocaine 2% 1cc, kenalog 80mg The patient was seen and examined in the preoperative holding area.? Informed consent was obtained and placed on the chart.? Patient was brought to the medical procedure unit and placed in the prone position where a timeout was completed verifying the correct patient, procedure site, position, and planned special equipment using sterile aseptic technique.? Under direct fluoroscopic visualization a 25-gauge Quincke tipped spinal needle was advanced to the designated neural foramen where contrast dye was injected to show adequate spread.? The needle was inserted at level right L3-4. There was no evidence of vascular or adverse uptake.? Epidural spread was appreciated.? The above- mentioned injectate was then placed in a 1.5 mL aliquot preceded by negative aspiration.? The needle was removed. The needle was inserted and the procedure repeated at level right L4-5.? The surgery site was covered.? Patient was taken to the postprocedural recovery area and monitored for an appropriate length of time before found suitable for discharge in the accompaniment of a responsible adult. Anesthesia: Local Surgeon: Veronica Solo Pathology: none sent Condition: stable Disposition: no change
== END 2023-10-05 09:14 | disposition home or self-care (01) ==
LOC: SURGOUT 08:06
PROVIDERS: PCP Family Medicine; Visit Provider Anesthesiology
DX: M48.062 Spinal stenosis, lumbar region with neurogenic claudication (principal)
CPT/HCPCS: 36415; 64483; 64484; 82948; Q9966

== ENCOUNTER 2023-10-12 15:09 | Outpatient (RCR) | payer BC, SELFPAY | END 2024-01-02 15:20 | disposition home or self-care (01) | LOC: PT 15:09 | PROVIDERS: PCP Family Medicine | DX: M54.16 Radiculopathy, lumbar region (principal) | CPT/HCPCS: 20561; 97010; 97012; 97014; 97110; 97112; 97113; 97140; 97162 ==

== ENCOUNTER 2023-10-14 14:09 | Outpatient (OUT) | payer BC, SELFPAY ==
--- NOTE | 2023-10-14 14:47 | P.CN_ITS ---
Consult Note: HPI Data of Consult Patient: known to practice within the last 3 years Consult date: 10/01/23 Requesting Physician: Urvashi Kim NP Primary Care Provider: JUAN MONTERROSO Consult Narrative Reason for consult: chronic low back pain with acute flair Narrative: Rian Coleman a pleasant 48 year old male with chronic moderate to severe low back pain presents for evaluation and management. Recently evaluated by Dr Peacock who recommended CHANTELLE. Significant loss of functional ability over the last few weeks, is now unable to do anything besides lie flat due to severe pain/weakness. Pain today 2/10 increasing to 8/10 with standing and walking and sitting for periods of time, decreased with lying. Medrol dose pack 09/11 without benefit. Failed tylenol and mobic, currently utilizing ibuprofen, percocet 7.5mg PRN, gabapentin 300mg TID, tizanidine 4mg TID PRN finding benefit. Recent right L3-4 L4-5 TFESI providing greater than 50% improvement in pain and functional ability cc:: CC: Urvashi Kim NP Review of Systems ROS Status of ROS 10 or more systems reviewed and unremark able except as noted in history and below Musculoskeletal Reports: back pain Meds Home Medications and Allergies Home Medications ?Medication ?Instructions ?Recorded ?Confirmed ?Type carvedilol 25 mg tablet 25 mg PO BID 09/18/23 10/05/23 History chlorthalidone 25 mg tablet 25 mg PO DAILY 09/18/23 10/05/23 History empagliflozin 10 mg tablet 10 mg PO DAILY 09/18/23 10/05/23 History (Jardiance) losartan 100 mg tablet 100 mg PO DAILY 09/18/23 10/05/23 History oxycodone-acetaminophen 5 mg-325 1 tab PO Q4H PRN pain #10 tabs 09/18/23 10/05/23 Rx mg tablet (Percocet) potassium chloride 20 mEq 20 meq PO .every other day 09/18/23 10/05/23 History tablet,extended release(part/cryst) (Klor-Con M) cholecalciferol (vitamin D3) 1,250 1,250 mcg PO QWEEK 10/01/23 10/05/23 History mcg (50,000 unit) capsule gabapentin 300 mg capsule 300 mg PO TID 10/01/23 10/05/23 History ibuprofen 200 mg tablet 800 mg PO TID-QID PRN pain 10/01/23 10/05/23 History tizanidine 4 mg capsule 4 mg PO TID PRN muscle spasticity 10/01/23 10/05/23 History vitamin B complex 1 tab PO DAILY 10/01/23 10/05/23 History zinc 50 mg tablet 50 mg PO DAILY 10/01/23 10/05/23 History Allergies Allergy/AdvReac Type Severity Reaction Status Date / Time No Known Drug Allergies Allergy Verified 10/05/23 08:20 Exam Constitutional Documenting provider has reviewed patient's vital signs: yes Common normals: no apparent distress, oriented x3, healthy appearing, alert and well nourished General appearance: cooperative HENMT Common normals: normocephalic, hearing grossly normal bilaterally and moist oral mucous membranes Head and scalp: normocephalic Eye Common normals: PERRL Pupil: PERRL Neck & C-Spine Common normals: full ROM General: normal visual inspection Chest Common normals: inspection of chest normal Respiratory Common normals: normal respiratory effort, no retractions and no use of accessory muscles Back & Pelvis Lumbar spine/lower back: ROM limited, pain with ROM, paraspinal muscle tenderness and straight leg raise positive right Sacroiliac joints: SI joint(s) abnormal Other: decreased sensation to right L3,4,5 pattern strength 4/5 in RLE 5/5 in LLE modified positive adriana(patricks), gaenslens, thigh thrust, compression test Extremity Common normals: normal to inspection Neuro Common normals: oriented x3, CN's II-XII intact bilaterally, moves all extremities, no focal motor deficits, no sensory deficits noted and deep tendon reflexes 2+ bilaterally Sensorium/orientation: alert Gait (neuro): antalgic Motor exam: strength 5/5 throughout and no movement abnormalities noted Psych Common normals: mental status grossly normal, thought process normal, cooperative, affect normal, speech normal and activity/motor behavior normal Speech: normal speech Thought process: normal thought process Results Additional Findings Additional findings: If on a controlled substance or opioids, I have checked an [place]AR[place] report on this patient and there are no aberrancies noted in the prescribing history.??If on a controlled substance or opioid a drug screen was completed and reviewed within the last year, and if there has not been a drug screen completed we ordered one today to monitor higher risk, state monitored pain medication use. As part of providing excellent, safe, comprehensive care, the following was completed at our patient's visit: 1. A medication reconciliation and review to ensure accurate knowledge of current/active medications, including asking our patients to inform us about any [id number] medications or herbal remedies/nutritional supplements/alter pokagon remedies. 2. A review to specifically ensure our patients have had annual screening for screening for depression, screening for tobacco use, and screening for unhealthy alcohol use. For concerning screenings had a discussion with the patient, provided patient education, and recommended follow-up with primary care provider when appropriate. If patient noted with a risk of falling, they received education on strength, gait, and balance training to prevent future risk of falling. Assessment and Plan Assessment and Plan (1) Lumbar stenosis with neurogenic claudication: (2) Lumbar radiculopathy: (3) DDD (degenerative disc disease), lumbar: (4) Myofascial pain: Plan engaged in PT with mild benefit continue percocet gabapentin through NS continue tizanidine 4-8mg TID PRN myofascial pain/spasms continue f/u with Dr Peacock f/u as needed
== END 2023-10-14 14:10 | disposition home or self-care (01) ==
LOC: PM 14:09
PROVIDERS: PCP Family Medicine; Visit Provider Nurse Practitioner
DX: M48.062 Spinal stenosis, lumbar region with neurogenic claudication (principal); M54.16 Radiculopathy, lumbar region; M51.36 Other intervertebral disc degeneration, lumbar region; M79.18 Myalgia, other site
CPT/HCPCS: G0463

== ENCOUNTER 2023-12-21 07:15 | Day surgery (SDC) | payer BC, SELFPAY ==
--- OUTSIDE RECORDS SUMMARY | 2023-12-21 07:21 | XMS_ITS | CCD ---
Author Organization [facility] CliniSywv Care Team Providers Care Carrier Driver Name Role Phone ZEN DE LA CRUZ Attending Unavailable JUAN MONTERROSO Primary Care Unavailable JUAN MONTERROSO Referring Unavailable MONIQUE DE LA CRUZSEIN Tuan Admitting Unavailable MONIQUE DE LA CRUZSEIN Tuan Surgeon Unavailable [place] Procedure Practitioner UnavailJuan Rizvi Unavailable Juan Monterroso DO Primary Care Provider CARRI CAMARILLO Attending Unavailable CARRI CAMARILLO Admitting Unavailable CARRI CAMARILLO Consulting Unavailable KRISS, DR MARTINEZ Primary Care Unavailable CARRI CAMARILLO Attending Unavailable CARRI CAMARILLO Admitting Unavailable GIRMARTA, DR MARTINEZ Primary Care Unavailable ZIEBER, DR QUINTON Russell Consulting Unavailable CARRI CAMARILLO Consulting Unavailable GIRMARTA, DR MARTINEZ Consulting Unavailable GIRMARTA, DR MARTINEZ Attending Unavailable GIRVIN, DR MARTINEZ Admitting Unavailable GIRVIN, DR MARTINEZ Primary Care Unavailable GIRVIN, DR MARTINEZ Primary Care Unavailable ELTAHAWY, DR RAYMUNDO Admitting Unavailable ELTAHAWY, DR RAYMUNDO Attending Unavailable JUAN HUERTA Attending Unavailable GIRVIN, DR MARTINEZ Primary Care Unavailable JUAN HUERTA Admitting Unavailable MISC, DR CARR Consulting Unavailable GIRMARTA, DR MARTINEZ Primary Care Unavailable MISC, DR CARR Attending Unavailable MISC, DR CARR Admitting Unavailable GIRVIN, DR MARTINEZ Primary Care Unavailable GIRVIN, DR MARTINEZ Consulting Unavailable GIRVIN, DR MARTINEZ Attending Unavailable GIRVIN, DR MARTINEZ Admitting Unavailable GIRVIN, DR MARTINEZ Attending Unavailable GIRVIN, DR MARTINEZ Admitting Unavailable GIRVIN, DR MARTINEZ Primary Care Unavailable GIRVIN, DR MARTINEZ Primary Care Unavailable GIRVIN, DR MARTINEZ Attending Unavailable GIRMARTA, DR MARTINEZ Admitting Unavailable LEYLA, ASH Consulting Unavailable ELDA MAYERISSA Attending Unavailable GIRMARTA, DR MARTINEZ Primary Care Unavailable LEYLA, ASH Admitting Unavailable MISC, DR CARR Consulting Unavailable GIRMARTA, DR MARTINEZ Primary Care Unavailable MISC, DR CARR Admitting Unavailable MISC, DR CARR Attending Unavailable CARRI CAMARILLO Admitting Unavailable RABIA, CARRI Consulting Unavailable CARRI CAMARILLO Attending Unavailable KRISS, DR MARTINEZ Primary Care Unavailable ELTAHAWY, DR RAYMUNDO Consulting Unavailable ELTAHAWY, DR RAYMUNDO Attending Unavailable ELTAHAWY, DR RAYMUNDO Admitting Unavailable KRISS, DR MARTINEZ Primary Care Unavailable KRISS, DR MARTINEZ Primary Care Unavailable PIPOLACHELLECHANDRA Consulting Unavailable PIPOLACHELLECHANDRA Attending Unavailable PIPO, CHANDRA Admitting Unavailable ZOEY BENOIT Consulting Unavailable KRISS, DR MARTINEZ Primary Care Unavailable MISC, DR CARR Consulting Unavailable MISC, DR CARR Attending Unavailable MISC, DR CARR Admitting Unavailable Juan Monterroso DO Primary Care Provider Germania JIMENEZ, Veronica Rodriguez Attending Unavailable ELTAHAWY, EHAB Attending Unavailable ELGAMONIQUE CENTENOSEIN Attending Unavailable MONIQUE DE LA CRUZSEIN Referring Unavailable ZEN DE LA CRUZ Attending Unavailable DO Juan Monterroso Primary Care Provider MD Adriel Rivas II Attending Provider [phone] Tone Lockhart Attending Unavailab Tone Tabares Admitting Unavailab Juan Sinha Primary Care Unavailable Medications Current Medications Medication Drug Class(es) Dates Sig (Normalized) Sig (Original) atenolol 25 mg oral tablet (3 sources) beta-Adrenergic Ciara Start: 09-12-2010 atenolol (TENORMIN) 25 MG tablet Take 25 mg by mouth. 0 09/12/2010 Active atorvastatin 80 mg oral tablet (5 sources) HMG-CoA Reductase Inhibitor Start: 2023 take 1 tablet by mouth once daily Atorvastatin Active 80 MG PO Daily 2023 12:00am FreeTextSi tablet Orally Once a day; Note: Source Status: Continue; Provider: Kriss Martinez ( ) take 1 tablet by nj th every twenty-four hours Atorvastatin Calcium 80 MG 1 tablet Oral ly Once a day Active bisacodyl 10 mg rectal suppository (3 sources) Stimulant Laxative Start: 07-15-2018 bisacodyl (DULCOLAX) 10 MG suppository Insert 1 Suppository in the rectum daily as needed for Constipation. 1 Suppository 0 07/15/2018 Active carvedilol 25 mg oral tablet (9 sources) alpha-Adrenergic Ciara, beta-Adrenergic Ciara Start: 2023 take 1 tablet by mouth once daily at mealtime Carvedilol Active 25 MG PO Daily 2023 12:00am FreeTextSi tablet with food Orally daily; Note: Source Status: Continue; Provider: Kriss Espinosa Start: 11-06-2021 take 1 tablet by nj th every twenty-four hours Coreg 25 MG 1 [...] 07/21/2018 Active chlorthalidone 25 mg oral tablet (15 sources) Thiazide-like Diuretic Start: 2023 End: 2023 take 1 tablet by mouth once daily Chlorthalidone Active 25 MG PO Daily 2023 3:24pm TAKE 1 TABLET BY MOUTH EVERY DAY*REPLACING HYDROCHLOROTHIAZIDE * take 1 tablet by mouth once Chlo rthalidone 25 MG TAKE 1 TABLET BY MOUTH EVERY DAY*REPLACING HYDROCHLOROTHIAZIDE* Oral Active cholecalciferol 0.125 mg oral tablet (4 sources) Vitamin D Start: 07-12-2020 take 1 tablet by mouth once daily Cholecalciferol (Vitamin D3) (Vitamin D3) 125 mcg (5,000 unit) Tablet Active 125 MCG PO Daily July 12, 2020 1:00am docusate sodium 100 mg oral capsule (3 sources) Start: 07-15-2018 take 1 capsule by mouth twice daily docusate sodium (COLACE) 100 MG capsule Take 1 Capsule by mouth 2 times daily. 60 Capsule 3 07/15/2018 Active empagliflozin 10 mg oral tablet (5 sources) Sodium-Glucose Cotransporter 2 Inhibitor Start: 05-01-2024 take 10 mg by mouth once daily Empagliflozin Active 10 MG PO Daily 2023 12:00am Start: 12-16-2022 take 1 tablet by nj th every twenty-four hours Jardiance 10 MG 1 tablet Orally Once a day for 90 days Nov, Active 0.6 ml enoxaparin sodium 100 mg/ml prefilled syringe (3 sources) Low Molecular Weight Heparin Start: 07-15-2018 inject 0.6 mL by subcutaneous injection twice daily enoxaparin (LOVENOX) 60 MG/0.6ML injection Inject 0.6 mL under the skin 2 times daily. 50.4 mL 0 07/15/2018 Active gabapentin 300 mg oral capsule (7 sources) Anti-epileptic Agent Start: 11-25-2023 Gabapentin Active MG PO November 25, 2023 12:00am Start: 11-10-2023 take 600 mg by mouth three times daily Gabapentin Active 600 MG PO Three times daily November 10, 2023 12:00am hydroCHLOROthiazide 25 mg / losartan potassium 100 mg oral tablet (3 sources) Thiazide Diuretic, Angiotensin 2 Receptor Ciara Start: 09-12-2010 losartan-hydrochlorothiazide (HYZAAR) 100-25 MG per tablet Take by mouth. 0 09/12/2010 Active icosapent ethyl 1000 mg oral capsule (5 sources) Start: 2023 take 2 g by mouth twice daily at mealtime Icosapent Ethyl Active 2 GM PO .bid with meals 2023 12:00am take 2 capsules by m outh every twelve hours Vascepa 1 GM 2 capsules with meals Orall y Twice a day Active levETIRAcetam 750 mg oral tablet (3 sources) Start: 07-13-2018 take 1 tablet by mouth twice daily levetiracetam (KEPPRA) 750 MG tablet Take 1 Tablet by mouth 2 times daily for 7 days. 14 Tablet 0 07/13/2018 Active losartan potassium 100 mg oral tablet (14 sources) Angiotensin 2 Receptor Ciara Start: 07-16-2018 take 100 mg by mouth once daily Losartan Active 100 MG PO Daily July 12, 2020 1:00am meloxicam 15 mg oral tablet (9 sources) Nonsteroidal Anti-inflammatory Drug Start: 07-20-2023 End: 07-20-2023 take 1 tablet by mouth once daily at mealtime Meloxicam Active 15 MG PO .QD with food July 20, 2023 1:55pm FreeTextSi tablet Orally Once a day; Note: Source Status: Start; Refills: 1; Qty: 90 Tablet; Provider: Kriss Espinosa Start: 01-12-2023 take 1 tablet by nj th every twenty-four hours Meloxicam 15 MG 1 tablet Orally Once a day for 90 days Dec, Active naloxone hydrochloride 40 mg/ml nasal spray [...] chloride 20 meq extended release oral tablet (5 sources) Start: 2023 take 20 mEq by mouth every other day at mealtime Potassium Chloride Active 20 MEQ PO .qod with food 2023 12:00am Start: 01-12-2023 take 1 tablet by nj th every other day at mealtime Potassium Chloride [place] ER 20 MEQ 1 tablet with food Orally qod for 90 days Dec, Active SITagliptin (4 sources) Dipeptidyl Peptidase 4 Inhibitor Januvia Active Testosterone (12 sources) Androgen Testosterone pil l Active Testosterone inj ection every other week Active tiZANidine 4 mg oral tablet (4 sources) Central alpha-2 Adrenergic Agonist Start: 11-10-2023 take 1-2 tablets by mouth three times daily as needed Tizanidine Active 4 MG PO .COMPLEX November 10, 2023 12:00am 4 mg orally 1-2 tablets three times a day PRN; Vitamin B-12 1000 MCG (2 sources) take 1 tablet by mouth once daily Vitamin B-12 1000 MCG 1 [...] Drug Class(es) Dates Sig (Normalized) Sig (Original) acetaminophen 325 mg / oxyCODONE hydrochloride 7.5 mg oral tablet (4 sources) Opioid Agonist Start: 09-21-2023 End: 11-25-2023 Oxycodone-Acetami nophen (Percocet) 7.5-325 mg tablet Discontinued 1 TAB PO every 6 to 8 hours 19 10September 21, 2023 November 25, 2023 8:42am amLODIPine 10 mg oral tablet (8 sources) [...] 2 puffs Inhalation Once a day Not-Taking clomiPHENE citrate 50 mg oral tablet (10 sources) Estrogen Agonist/Antagonist Start: 07-12-2020 End: 2023 take 50 mg by mouth once daily Clomiphene Citrate Discontinued 50 MG PO Daily July 12, 2020 1:00am 2023 3:18pm take 0.5 tablet by mouth once da maida clomiPHENE Citrate 50 MG 1/2 tablet Orally Once a day Active dextromethorphan hydrobromid e 30 mg / pyrilamine maleate 30 mg oral tablet (2 sources) Uncompetitive R-mvqjki-R-aspartate Receptor Antagonist, Sigma-1 Agonist Start: 05-13-2021 Start: 05-13-2021 take 1 tablet by nj th every six hours as needed [place] DMT 30-30 MG 1 tablet Orally q6 hrs prn Apr, Not-Taking hydroCHLOROthiazide 25 mg oral tablet (9 sources) Thiazide Diuretic Start: 07-16-2018 End: 2023 take 25 mg by mouth once daily Hydrochlorothiazide Discontinued 25 MG PO Daily July 12, 2020 1:00am 2023 3:15pm ibuprofen 800 mg oral tablet (13 sources) Nonsteroidal Anti-inflammator y Drug Start: 07-12-2020 End: 2023 take 800 mg by mouth once daily Ibuprofen Discontinued 800 MG PO Daily July 12, 2020 1:00am 2023 3:10pm Start: 09-12-2010 ibuprofen (MOT RIN) 600 MG tablet Take 600 mg by mouth. 0 09/12/2010 Active take 1 tablet by nj th every eight hours at mealtime Ibuprofen 800 MG TAKE 1 TABLET BY MOUTH EVERY 8 HOURS WITH FOOD for 30 Active 24 hr metFORMIN hydrochloride 500 mg extended release oral tablet (10 sources) Biguanide Start: 07-12-2020 End: 2023 take 500 mg by mouth twice daily Metformin Discontinued 500 MG PO Twice daily July 12, 2020 1:00am 2023 3:11pm metFORMIN HCl ER 500 MG 2 tablets with morning meal Orally and take 2 tablets with evening meal Active methocarbamol 500 mg oral tablet (2 sources) Muscle Relaxant methylPREDNISolone 4 mg oral tablet (4 sources) Corticosteroid Start : 09-14 End: 09-22 take 1 tablet by mouth once at mealtime Methylprednisolone (Medrol (Mejia)) 4 mg tablets,dose pack Discontinued 0 PO per package directions September 15, 2023 12:00am 2023 3:11pm PO PER PKG DIR for 6 days, take with food omeprazole 20 mg delayed release oral capsule (4 sources) Proton Pump Inhibitor Start : 07-13 End: 11-09 take 20 mg by mouth once daily Omeprazole Discontinued 20 MG PO Daily 30 July 13, 2020 1:00am November 10, 2023 8:49am somatropin 24 mg cartridge (2 sources) Recombinant Human Growth Hormone vitamin b12 1 mg oral tablet (9 sources) Vitamin B12 Start : 07-12 End: 09-22 take 1000 ug by mouth once daily Cyanocobalamin (Vitamin B-12) Discontinued 1000 MCG PO Daily July 12, 2020 1:00am 2023 3:10pm take 1 tablet by mouth every wee k Vitamin B-12 1000 MCG 1 tablet Orally once a week Active take 1 tablet by nj th every twenty-four hours Vitamin B-12 1000 MCG 1 tablet Orally On ce a day Active Zinc (4 sources) Start: 07-12-2020 End: 2023 take 50 mg by mouth once daily Zinc Discontinued 50 MG PO Daily July 12, 2020 1:00am 2023 3:12pm Problems Active Problems Problem Classification Problem Date Documented Da te Episodic/Chronic Diabetes mellitus without complication (5 sources) Type 2 diabetes mellitus without complications; 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: [TYPE 2 DM WITHOUT COMPLICATIONS] Onset: 3 Chronic Diabetes mellitus without complication (10 sources) Hyperglycemia, unspecified; 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: [Prediabetes] Onset: 2 Resolved: 2 Episodic Diseases of white blood cells (7 sources) Increased blood leukocyte number; 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: [Elevated white blood cell count, unspecified] Chronic Disorders of lipid metabolism (13 sources) Hyperlipidemia; 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: [Hyperlipidemia, unspecified] Onset: 2 Resolved: 2 Chronic Essential hypertension (16 sources) Hypertensive disorder; 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: [Essential (primary) hypertension] Onset: 2 Resolved: 2 Chronic Fluid and electrolyte disorders (6 sources) Hypokalemia; 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: [HYPOKALEMIA] Onset: 2 Resolved: 2 Episodic Intracranial injury (5 sources) Unspecified intracranial injury with loss of consciousness of unspecified duration, initial encounter; 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: [History of traumatic brain injury] Onset: 2 Resolved: 2 Episodic Joint disorders and dislocations; trauma-related (1 source) Chondromalacia patellae, left knee; 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: [CHONDROMALACIA PATELLAE LEFT KNEE] Onset: 2 Chronic Malaise and fatigue (1 source) Other fatigue; 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: [OTHER FATIGUE] Onset: 3 Episodic Nutritional deficiencies (10 sources) Vitamin D deficiency; 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: [Vitamin D deficiency, unspecified] Onset: 2 Resolved: 2 Chronic Other aftercare (1 source) alf (current) use of insulin; 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] Onset: 3 Episodic Other connective tissue disease (4 sources) History of repair of hip joint; 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: [Presence of right artificial hip joint] 09-02-2023 Chronic Other endocrine disorders (7 sources) Decreased testosterone level ; 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: [Testicular hypofunction] Chronic Other endocrine disorders (7 sources) Hypogonadotropic hypogonadism; 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: [Hypopituitarism] Chronic Other endocrine disorders (2 sources) Hypopituitarism; 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: [HYPOPITUITARISM] Onset: 2 Resolved: 2 Chronic Other endocrine disorders (2 sources) Testicular hypofunction; 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: [TESTICULAR HYPOFUNCTION] Onset: 2 Resolved: 2 Chronic Other gastrointestinal disorders (4 sources) Constipation; 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: [Constipation, unspecified] 2023 Episodic Other gastrointestinal disorders (4 sources) Constipation, unspecified; 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: [Constipation, unspecified] 2023 Episodic Other injuries and conditions due to external causes (4 sources) Finding with explicit context; 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: [Personal history of other (healed) physical injury and trauma] 07-12-2020 Episodic Other nervous system disorders (4 sources) Guillain-Eldred syndrome; 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: [Guillain-Eldred syndrome] 07-12-2020 Chronic Other nervous system disorders (7 sources) Paresthesia; 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: [Paresthesia of skin] Episodic Other nervous system disorders (4 sources) Ataxia; 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: [Ataxia, unspecified] 07-12-2020 Episodic Other non-traumatic joint disorders (4 sources) Hip pain; 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: [Pain in right hip] 2023 Episodic Other non-traumatic joint disorders (4 sources) Pain in right hip; 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: [Pain in joint, pelvic region and thigh] 2023 Episodic Other nutritional; endocrine; and metabolic disorders (11 sources) Obesity; 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: [Obesity, unspecified] 07-12-2020 Chronic Residual codes; unclassified (11 sources) Obstructive sleep apnea syndrome; 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: [Obstructive sleep apnea (adult) (pediatric)] 07-12-2020 Chronic Residual codes; unclassified (7 sources) Amnesia; 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: [Other amnesia] Episodic Residual codes; unclassified (4 sources) History of vaccination; 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: [Personal history of other drug therapy] 07-12-2020 Episodic Spondylosis; intervertebral disc disorders; other back problems (4 sources) Thoracic myelopathy; 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: [Other spondylosis with myelopathy, thoracic region] 07-13-2020 Chronic Spondylosis; intervertebral disc disorders; other back problems (20 sources) Cervicalgia; 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: [Nerve root disorder] Onset: 2 Resolved: 2 Episodic Unclassified (4 sources) CONTACT W/AND (SUSP) EXPOS COVID-19; 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: [CONTACT W/AND (SUSP) EXPOS COVID-19] Onset: 2 Viral infection (2 sources) COVID-19; 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: [COVID-19] Onset: 2 Resolved: 2 Past or Other Problems Problem Classification Problem Date Documented Da te Episodic/Chronic Cardiac dysrhythmias (4 sources) Palpitations; 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: [PALPITATIONS] Onset: 02-18-2022 Episodic Genitourinary symptoms and ill-defined conditions (1 source) Nocturia Onset: 06-18-2021 Resolved: 06-18-2021 Episodic Joint disorders and dislocations; trauma-related (1 source) Other tear of medial meniscus, current injury, left knee, initial encounter; 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: [OTH TEAR MED MENSC CUR LT KNEE INIT] Onset: 01-15-2022 Episodic Other aftercare (2 sources) Other 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 Will be faxed and scanned into media today. Patient notified and verbalized understanding. [facility] 3611-18-2023 36 Patient is calling about his disability paperwork. He would like confirmation that they were sent out. Please call patient # [phone]. [facility] 36on 11-10-2023 36 Spoke to patient, advised I have paperwork but it is pending signature from Dr. De La Cruz. He will not return until next week. I will fax everything over once complete. Patient verbalized understanding. [facility] 36 Patient called with concerns that his work never received from 10/19-11/15. Patient is requesting that paperwork being done. Patient states that he sent a paper for his short term disability that has not been submitted also. (It was an attachment to email) Please call patient Good # [phone]. [facility] 36on 10-29-2023 36 Spoke to patient - advised of Dr. De La Cruz's recommendation. He requested intermittent leave, which I advised we cannot do. If he needs further time off he will need to speak to his PCP. He verbalized understanding. He will send paperwork to me on [x+1]t. [facility] [address] De La Cruz 2 more weeks and that is it, he will have to follow up with PCP for FMLA after that. [facility] 36 Patients 2 week work release is over, and patient would like it extended, and patient has paperwork to be emailed [facility] Telephoneon 10-29-2023 Telephone [id number] Rian Coleman 1975 M Date Provider Department [place] 10/29/2023 [id number] SNYDER [facility] Family History Problem Relation Age of Onset Diabetes Mother Hypertension Mother Heart attack Mother's Sister Heart attack Mother's Brother Heart attack Maternal Grandfather Family Status - Relation Status Age at Mother Mother's Sister Mother's Brother Maternal Grandfather [facility] Follow-Upon 10-15-2023 Follow-Up [id number] Rian Coleman 1975 M Date Provider Department Center 10/15/2023 ZEN SALGADO ORTHO [facility] Family History Problem Relation Age of Onset Diabetes Mother Hypertension Mother Heart attack Mother's Sister Heart attack Mother's Brother Heart attack Maternal Grandfather Family Status - Relation Status Age at Mother Mother's Sister Mother's Brother Maternal Grandfather Level of Service:77518 [place] OFFICE/OUTPATIENT ESTABLISHED LOW MDM 20 MIN [facility] 10-08-2023 36 Paperwork faxed and scanned into media. [facility] 10-07-2023 36 Paperwork signed, will fax and scan in after clinic. [facility] 10-05-2023 36 FMLA received and completed. Pending signature from Dr. De La Cruz. [facility] 10-01-2023 36 Confirmed PT order with Dr. De La Cruz. Ordered and faxed to number provided. [facility] [address] [facility] requesting patients PT order can be faxed to [id number] [facility] Follow-Upon 10-01-2023 Follow-Up [id number] Rian Coleman Frankie 1975 M Date Provider Department Center 10/01/2023 ZEN SALGADO ORTHO [facility] Family History Problem Relation Age of Onset Diabetes Mother Hypertension Mother Heart attack Mother's Sister Heart attack Mother's Brother Heart attack Maternal Grandfather Family Status - Relation Status Age at Mother Mother's Sister Mother's Brother Maternal Grandfather Level of Service:03787 [place] OFFICE/OUTPATIENT ESTABLISHED MOD MDM 30 MIN [facility] 36on 09-30-2023 36 Patient states he is completely helpless and has been doing nothing but laying in bed. He cannot go to the restroom, he cannot get out of bed, he cannot do anything. I advised that Dr. De La Cruz doesn't typically do telemed visits - and in [place] he does not have the capability to do that at all with not having any help, and them using a different computer system. Since he hasn't been seen in over a year, Dr. De La Cruz will also need to do a physical [...] I have never personally been to the [place] office, so I am not sure what [...] an ED physician, and not by Dr. De La Cruz. He states he could just go to the ED and tell them he cannot take care of himself at home and they will have to admit him. I advised that he would be evaluated and if they think it is medically necessary, then yes they will admit him. He asked if Dr. De La Cruz would come see him. I advised it depended on what hospital he came to because Dr. De La Cruz does not have privileges at every hospital. He advised he would come here. I advised that if he did end up being admitted, and they chose to consult Dr. De La Cruz, then either Dr. De La Cruz or one of our residents would come [...] he would have to be transferred to [place] because this is the only MRI that [...] here to the appointment and have Dr. De La Cruz come out to his car to see him. I advised this is not an option. He asked if there was anyone at the [place] location that he could talk to to see if they had a stretcher he could use for the appointment. I advised I am unaware, but provided their phone number for him. I advised him to let me know if the appointment tomorrow will work or not, so we can cancel it if necessary. He verbalized understanding. [facility] 36 Dr. De La Cruz does not do telemed visits. He will have to be seen face to face. Will call patient when available. [facility] 36 Patient has questions regarding tomorrows visit Wanting to know if he can be scheduled for a telemedicine visit as he will have a difficult time making it to the office Please give a call back [facility] 36on 2023 36 Patient advised we cannot see anything from [facility] unless he brings us a CD. He states he wants Dr. De La Cruz to look at the report. I advised I have not received anything from [place] but will keep an eye out for it. He verbalized understanding. [facility] 36 Patient called and would like to know if can view his MRI results done at [facility] on 09/22/23 of lumbar spine, service writer advisor directed patient to call [facility] and request MRI images to bring on a disc to his appointment, patient then wanted to know if would be able to call [facility] and see results of MRI and discuss results prior to appointment. [facility] 36on 09-17-2023 36 Spoke to patient. Advised [...] the restroom. I offered an appointment in [place] instead, since that is closer to where he lives, and I can get him in a lot sooner in [place] than I can in [place] since the first opening is in November. [...] to an appointment either here or in [place] to go over the results with Dr. De La Cruz. He verbalized understanding and states this is a good option. I offered again to get him an appointment so there is at least something on the books and he is not pushed out even further. He opted to schedule an appointment in [place] instead of [place]. He will discuss getting the MRI ordered with his PCP, and if they are not willing he will talk to Dr. De La Cruz at the appointment on 09/30 about ordering the MRI. Patient is agreeable to plan. [facility] 36 Patients requesting an MRI and a sooner appointment. He said he knows the Dr and the dr will just do it. I informed him hes a new patient so he does needs seen at which he said no the dr will just order the mri and call him [facility] Office Visiton 01-12-2023 Follow-up visit [id number] Rian Coleman 1975 M Date Provider Department Center 01/12/2023 Dmitri-JUSTEN HILL [facility] Family History Problem Relation Age of Onset Diabetes Mother Hypertension Mother Heart attack Mother's Sister Heart attack Mother's Brother Heart attack Maternal Grandfather Family Status - Relation Status Age at Mother Mother's Sister Mother's Brother Maternal Grandfather Level of Service:96601 [place] OFFICE/OUTPATIENT ESTABLISHED LOW MDM 20-29 MIN [facility] TESTOSTERONE, FREE,DIRECT, T Jazlyn 07-22-2022 Free Testosterone(Direct) 11.4 pg/mL Normal 6.8-21.5 [facility] Comment on above: Result Comment: Perf ormed at: BN Performed By: #### V ITAD #### [facility] [address] [address] [address] Zurdo Gil Testosterone [Mass/Vol] 373 ng/dL Normal 264-916 [facility] Comment on above: Result Comment: Adul t male reference interval is based on a population of healthy nonobese males (BMI <30) between 19 and 39 years old. eddie Myrick.al. JCEM 2017,102;4196-8129. PMID: 25075721. Performed at: CB Performed By: #### V ITAD #### [facility] [address] [place] [address] Dr. Zurdo Gil VLNCKUJ-BZTS-RJKIBV-FACTOR 1 on 07-17-2022 Insulin-Like Growth Factor I 103 ng/mL Normal 81-263 [facility] Comment on above: Performed By: #### V ITAD #### [facility] [address] [place] [address] Dr. Zurdo Gil ESTRADIOLon 07-16-2022 Estradiol 41.2 pg/mL Normal 7.6-42.6 [facility] Comment on above: Result Comment: Neena joshi ECLIA methodology Performed By: #### V ITAD #### [facility] [address] [place] [address] Dr. Zurdo Gil PROF CHEM 8 (BAS METB)on Anion gap [Moles/Vol] 13.0 mmol/L Normal [facility] Comment on above: Performed By: #### C VDAGA #### [facility] [address] [place] [address] Dr. Zurdo Gil Calcium [Mass/Vol] 9.3 mg/dL Normal 8.5-10.1 [facility] Comment on above: Performed By: #### C VDAGA #### [facility] [address] [place] [address] Dr. Zurdo Gil Chloride [Moles/Vol] 97 mmol/L Critically low 98-107 [facility] Comment on above: Performed By: #### C VDAGA #### [facility] [address] [place] [address] Dr. Zurdo Gil CO2 [Moles/Vol] 27.4 mmol/L Normal 21.0-32.0 [facility] Comment on above: Performed By: #### C VDAGA #### [facility] [address] [place] [address] Dr. Zurdo Gil Creatinine [Mass/Vol] 1.06 mg/dL Normal 0.70-1.30 [facility] Comment on above: Performed By: #### C VDAGA #### [facility] [address] [place] [address] Dr. Zurdo Gil EGFR-AF SURINAMESE >60 Normal >=60 [facility] Comment on above: Performed By: #### C VDAGA #### [facility] [address] [place] [address] Dr. Zurdo Gil EGFR-NON AF SURINAMESE >60 Normal >=60 [facility] Comment on above: Performed By: #### C VDAGA #### [facility] [address] [address] [address] Zurdo Gil Glucose [Mass/Vol] 207 mg/dL Critically high 74-[address] [facility] Comment on above: Performed By: #### C VDAGA #### [facility] [address] [place] [address] Dr. Zurdo Gil Potassium [Moles/Vol] 3.4 mmol/L Critically low 3.5-5.1 [facility] Comment on above: Performed By: #### C VDAGA #### [facility] [address] [place] [address] Dr. Zurdo Gil Sodium [Moles/Vol] 134 mmol/L Critically low 136-145 [facility] Comment on above: Performed By: #### C VDAGA #### [facility] [address] [place] [address] Dr. Zurdo Gil Urea nitrogen [Mass/Vol] 15.0 mg/dL Normal 7.0-18.0 [facility] Comment on above: Performed By: #### C VDAGA #### [facility] [address] [place] [address] Dr. Zurdo Gil Urea nitrogen/Creatinine [Mass ratio] 14.2 mg/mg Normal [facility] Comment on above: Performed By: #### C VDAGA #### [facility] [address] [place] [address] Dr. Zurdo Gil CBC AUTO DIFFon 07-15-2022 BASO # 0.0 103/ul Normal 0.0-0.1 [facility] Comment on above: Performed By: #### C BC #### [facility] [address] [place] [address] Dr. Zurdo Gil Basophils/100 WBC (Bld) 0.3 % Normal 0.2-2.0 [facility] Comment on above: Performed By: #### C BC #### [facility] [address] [place] [address] Dr. Zurod Gil EO # 0.2 103/ul Normal 0.0-0.7 [facility] Comment on above: Performed By: #### C BC #### [facility] [address] [place] [address] Dr. Zurdo Gil Eosinophils/100 WBC (Bld) 2.5 % Normal 0.9-7.0 [facility] Comment on above: Performed By: #### C BC #### [facility] [address] [place] [address] Dr. Zurdo Gil Erythrocyte distribution width (RBC) [Ratio] 12.0 % Normal 11.0-15.0 [facility] Comment on above: Performed By: #### C BC #### [facility] [address] [place] [address] Dr. Zurdo Gil Hematocrit (Bld) [Volume fraction] 47.5 % Normal 42.0-54.0 [facility] Comment on above: Performed By: #### C BC #### [facility] [address] [place] [address] Dr. Zurdo Gil Hemoglobin (Bld) [Mass/Vol] 17.6 g/dL Normal 14.0-18.0 [facility] Comment on above: Performed By: #### C BC #### [facility] [address] [place] [address] Dr. Zurdo Gil IG # 0.04 10e3/ul Critically high 0.00-0.03 [facility] Comment on above: Performed By: #### C BC #### [facility] [address] [place] [address] Dr. Zurdo Gil IG % 0.4 % Normal 0.0-0.5 [facility] Comment on above: Performed By: #### C BC #### [facility] [address] [place] [address] Dr. Zurdo Gil LYMPH # 2.7 103/ul Normal 1.2-3.8 [facility] Comment on above: Performed By: #### C BC #### [facility] [address] [place] [address] Dr. Zurdo Gil Lymphocytes/100 WBC (Bld) 27.5 % Normal 20.5-60.0 [facility] Comment on above: Performed By: #### C BC #### [facility] [address] [place] [address] Dr. Zurdo Gil MANUAL DIFF REQ NO Normal [facility] Comment on above: Performed By: #### C BC #### [facility] [address] [place] [address] Dr. Zurdo Gil MCH (RBC) [Entitic mass] 32.3 pg Normal 25.9-34.0 [facility] Comment on above: Performed By: #### C BC #### [facility] [address] [place] [address] Dr. Zurdo Gil MCHC (RBC) [Mass/Vol] 37.1 g/dL Critically high 29.9-35.2 [facility] Comment on above: Performed By: #### C BC #### [facility] [address] [place] [address] Dr. Zurod Gil MCV (RBC) [Entitic vol] 87.2 fL Normal 80.0-94.0 [facility] Comment on above: Performed By: #### C BC #### [facility] [address] [place] [address] Dr. Zurdo Gil MONO # 0.8 103/ul Normal 0.3-0.8 [facility] Comment on above: Performed By: #### C BC #### [facility] [address] [place] [address] Dr. Zurdo Gil Monocytes/100 WBC (Bld) 8.0 % Normal 1.7-12.0 [facility] Comment on above: Performed By: #### C BC #### [facility] [address] [place] [address] Dr. Zurdo Gil NEUT # 5.9 103/ul Normal 1.4-6.5 [facility] Comment on above: Performed By: #### C BC #### [facility] [address] [address] [address] Zurdo Gil Neutrophils/100 WBC (Bld) 61.3 % Normal 43.0-75.0 [facility] Comment on above: Performed By: #### C BC #### [facility] [address] [address] [address] Zurdo Gil Platelet mean volume (Bld) [Entitic vol] 8.7 fL Critically low 9.5-13.5 [facility] Comment on above: Performed By: #### C BC #### [facility] [address] [place] [address] Dr. Zurdo Gil PLT 185 103/ul Normal 150-450 [facility] Comment on above: Performed By: #### C BC #### [facility] [address] [place] [address] Dr. Zurdo Gil RBC 5.45 106/ul Normal 4.70-6.10 [facility] Comment on above: Performed By: #### C BC #### [facility] [address] [address] [address] Zurdo Gil WBC 9.7 103/ul Normal 4.0-11.0 [facility] Comment on above: Performed By: #### C BC #### [facility] [address] [place] [address] Dr. Zurdo Gil FREE T3on 07-15-2022 FREE T3 2.52 pg/mlL Normal 2.18-3.98 [facility] Comment on above: Performed By: #### V ITAD #### [facility] [address] [place] [address] Dr. Zurdo Gil FREE T4on 07-15-2022 Free T4 [Mass/Vol] 1.02 ng/dL Normal 0.76-1.46 [facility] Comment on above: Performed By: #### F T4, VITB12, VITAD #### [facility] [address] [place] [address] Dr. Zurdo Gil GLYCOHEMOGLOBIN A1Con 2022 ADA RECOMMENDATION SEE BELOW Normal [facility] Comment on above: Result Comment: ADA RECOMMENDED LIMIT 4.0 - 6.0 ADA THERAPEUTIC TARGET < 7.0 ACTION SUGGESTED > 7.0 Performed By: #### A 1C #### [facility] [address] [place] [address] Dr. Zurdo Gil Glucose [Mass/Vol] 134 mg/dL Normal [facility] Comment on above: Performed By: #### A 1C #### [facility] [address] [place] [address] Dr. Zurdo Gil HbA1c (Bld) [Mass fraction] 6.3 % Critically high 4.5-6.2 [facility] Comment on above: Performed By: #### A 1C #### [facility] [address] [place] [address] Dr. Zurdo Gil LIPID PROFILEon 07-15-2022 CHOL-HDL RATIO NORM SEE BELOW Normal [facility] Comment on above: Result Comment: 3.3 - 4.4 LOW RISK 4.4 - 7.1 AVERAGE RISK 7.1 - 11.0 MODERATE RISK >11.0 HIGH RISK Performed By: #### V ITAD #### [facility] [address] [place] [address] Dr. Zurdo Gil Cholesterol [Mass/Vol] 231 mg/dL Critically high <=200 [facility] Comment on above: Performed By: #### V ITAD #### [facility] [address] [place] [address] Dr. Zurdo Gil Cholesterol in HDL [Mass/Vol] 41 mg/dL Normal 40-60 [facility] Comment on above: Performed By: #### V ITAD #### [facility] [address] [address] [address] Zurdo Gil Cholesterol in LDL [Mass/Vol] 130.6 mg/dL Normal [facility] Comment on above: Performed By: #### V ITAD #### [facility] [address] [place] [address] Dr. Zurdo Gil Cholesterol.total/Ch olesterol in HDL [Mass ratio] 5.6 {ratio} Normal [facility] Comment on above: Performed By: #### V ITAD #### [facility] [address] [address] [address] Zurdo Gil HDL NORMAL > or = 60 mg/dl - LOW CARDIOVASCULAR RISK <40 mg/dl - HIGH CARDIOVASCULAR RISK Normal [facility] Comment on above: Performed By: #### V ITAD #### [facility] [address] [address] [address] Zurdo Gil LDL CALC NORMAL SEE BELOW Normal [facility] Comment on above: Result Comment: <100 mg/dl OPTIMAL 100 - 129 mg/dl NEAR OR ABOVE OPTIMAL 130 - 159 mg/dl BORDERLINE HIGH 160 - 189 mg/dl HIGH >190 mg/dl VERY HIGH Performed By: #### V ITAD #### [facility] [address] [address] [address] Zurdo Gil Triglyceride [Mass/Vol] 297 mg/dL Critically high <=150 [facility] Comment on above: Performed By: #### V ITAD #### [facility] [address] [address] [address] Zurdo Gil VLDL CALC 59.4 mg/dL Normal [facility] Comment on above: Performed By: #### V ITAD #### [facility] [address] [address] [address] Zurdo Gil MICROALB CREAT RATIO RANDOMo n 07-15-2022 mALB <1.3 Normal <=30.0 [facility] Comment on above: Performed By: #### M CRR #### [facility] [address] [address] [address] Zurdo Gil MALB CR RATIO RANGE SEE BELOW Normal [facility] Comment on above: Result Comment: NO M ICROALBUMINURIA 0-29 MG/G CLINICAL MICROALBUMINURIA 30-300 MG/G MACROALBUMINURIA >300 MG/G Performed By: #### M CRR #### [facility] [address] [place] [address] Dr. Zurdo Gil URINE CREAT 37.07 mg/dL Normal 20.00-300.00 [facility] Comment on above: Performed By: #### M CRR #### [facility] [address] [address] [address] Zurdo Gil PROF 14(COMP METB)on 023 Albumin [Mass/Vol] 4.3 g/dL Normal 3.4-5.0 [facility] Comment on above: Performed By: #### C VDAGA #### [facility] [address] [address] [address] Zurdo Gil Albumin/Globulin [Mass ratio] 1.0 {ratio} Normal [facility] Comment on above: Performed By: #### C VDAGA #### [facility] [address] [place] [address] Dr. Zurdo Gil ALP [Catalytic activity/Vol] 92 U/L Normal 46-116 [facility] Comment on above: Performed By: #### C VDAGA #### [facility] [address] [place] [address] Dr. Zurdo Gil ALT [Catalytic activity/Vol] 35 U/L Normal 16-63 [facility] Comment on above: Performed By: #### C VDAGA #### [facility] [address] [place] [address] Dr. Zurdo Gil Anion gap [Moles/Vol] 15.2 mmol/L Normal [facility] Comment on above: Performed By: #### C VDAGA #### [facility] [address] [place] [address] Dr. Zurdo Gil AST [Catalytic activity/Vol] 22 U/L Normal 15-37 [facility] Comment on above: Performed By: #### C VDAGA #### [facility] [address] [place] [address] Dr. Zurdo Gil Bilirubin [Mass/Vol] 1.1 mg/dL Critically high 0.2-1.0 [facility] Comment on above: Performed By: #### C VDAGA #### [facility] [address] [place] [address] Dr. Zurdo Gil Calcium [Mass/Vol] 9.4 mg/dL Normal 8.5-10.1 [facility] Comment on above: Performed By: #### C VDAGA #### [facility] [address] [address] [address] Zurdo Gil Chloride [Moles/Vol] 99 mmol/L Normal 98-107 [facility] Comment on above: Performed By: #### C VDAGA #### [facility] [address] [address] [address] Zurdo Gil CO2 [Moles/Vol] 25.8 mmol/L Normal 21.0-32.0 [facility] Comment on above: Performed By: #### C VDAGA #### [facility] [address] [address] [address] Zurdo Gil Creatinine [Mass/Vol] 1.01 mg/dL Normal 0.70-1.30 [facility] Comment on above: Performed By: #### C VDAGA #### [facility] [address] [place] [address] Dr. Zurdo Gil EGFR-AF SURINAMESE >60 Normal >=60 [facility] Comment on above: Performed By: #### C VDAGA #### [facility] [address] [address] [address] Zurdo Gil EGFR-NON AF SURINAMESE >60 Normal >=60 [facility] Comment on above: Performed By: #### C VDAGA #### [facility] [address] [place] [address] Dr. Zurdo Gil Globulin (S) [Mass/Vol] 4.1 g/dL Normal [facility] Comment on above: Performed By: #### C VDAGA #### [facility] [address] [address] [address] Zurdo Gil Glucose [Mass/Vol] 185 mg/dL Critically high 74-[address] [facility] Comment on above: Performed By: #### C VDAGA #### [facility] [address] [place] [address] Dr. Zurdo Gil Potassium [Moles/Vol] 2.9 mmol/L Critically low 3.5-5.1 [facility] Comment on above: Performed By: #### C VDAGA #### [facility] [address] [place] [address] Dr. Zurdo Gil Protein [Mass/Vol] 8.4 g/dL Critically high 6.4-8.2 [facility] Comment on above: Performed By: #### C VDAGA #### [facility] [address] [place] [address] Dr. Zurdo Gil Sodium [Moles/Vol] 135 mmol/L Critically low 136-145 [facility] Comment on above: Performed By: #### C VDAGA #### [facility] [address] [place] [address] Dr. Zurdo Gil Urea nitrogen [Mass/Vol] 15.0 mg/dL Normal 7.0-18.0 [facility] Comment on above: Performed By: #### C VDAGA #### [facility] [address] [place] [address] Dr. Zurdo Gil Urea nitrogen/Creatinine [Mass ratio] 14.9 mg/mg Normal [facility] Comment on above: Performed By: #### C VDAGA #### [facility] [address] [place] [address] Dr. Zurdo Gil TSHon 07-15-2022 TSH 2.054 uIU/mL Normal 0.358-3.740 [facility] Comment on above: Performed By: #### C VDAGA #### [facility] [address] [place] [address] Dr. Zurdo Gil VITAMIN B12on 07-15-2022 Cobalamin (Vitamin B12) [Mass/Vol] 1980.0 pg/mL Critically high 193.0-986.0 [facility] Comment on above: Performed By: #### F T4, VITB12, VITAD #### [facility] [address] [place] [address] Dr. Zurdo Gil VITAMIN D 25 OHon 07-15-2022 VIT D 25-OH 39.5 ng/mL Normal [facility] Comment on above: Performed By: #### F T4, VITB12, VITAD #### [facility] [address] [place] [address] Dr. Zurdo Gil VIT D RANGES SEE BELOW Normal [facility] Comment on above: Result Comment: <20 ng/mL Vit D deficient 20 - <30 ng/mL Vit D insufficient 30 - 100 ng/mL Vit D sufficient >100 ng/mL Potential Toxicity Performed By: #### F T4, VITB12, VITAD #### [facility] [address] [address] [address] Zurdo Gil ASYMPTOMATIC COVID-19 ANTIGE Non 04-28-2022 EUA Statement SEE BELOW Normal [facility] Comment on above: Result Comment: This test [...] By: #### C VDAGA #### [facility] [address] [place] [address] Dr. Zurdo Gil SARS-CoV-2 (COVID-19) RNA MAYRA+probe Ql (Unsp spec) Negative Normal NEGATIVE [facility] Comment on above: Result Comment: Nega tive results are presumptive. They do not preclude infection and should not be used as the sole basis for treatment decisions. Additional confirmatory testing by a molecular method should be considered. Performed By: #### C VDAGA #### [facility] [address] [address] [address] Zurdo Gil Cov[facility] PCR ([facility]on 03-27 SARS-CoV-2 (COVID-19) RNA MAYRA+probe Ql (Unsp [...] for this test is supported by the [place] of [employer] and Human Service's declaration that [...] By: #### C VDTBH #### [facility] [address] [place] [address] Dr. Zurdo Gil UFAIWYA-KKDK-WYSPSF-FACTOR 1 on 02-10-2022 Insulin-Like Growth Factor I 67 ng/mL Critically low 81-263 [facility] Comment on above: Performed By: #### C VDAGA #### [facility] [address] [place] [address] Dr. Zurdo Gil MICROALBUMIN/ CREATININE RAT IOon 02-07-2022 Albumin, Urine 8.6 ug/mL Normal Not Estab. [facility] Comment on above: Performed By: #### C VDAGA #### [facility] [address] [place] [address] Dr. Zurdo Gil Albumin/ Creatinine Ratio 8 mg/g creat Normal 0-29 [facility] Comment on above: Result Comment: Norm al: 0 - 29 Moderately increased: 30 - 300 Severely increased: >300 Performed By: #### C VDAGA #### [facility] [address] [place] [address] Dr. Zurdo Gil Creatinine, Urine 103.5 mg/dL Normal Not Estab. [facility] Comment on above: Performed By: #### C VDAGA #### [facility] [address] [place] [address] Dr. Zurdo Gil TESTOSTERONE, TOTALon 2021 Testosterone [Mass/Vol] ng/dL Critically high 264-916 [facility] Comment on above: Result Comment: Adul t male reference interval is based on a population of healthy nonobese males (BMI <30) between 19 and 39 years old. eddie Myrick.al. JCEM 2017,102;1820-9239. PMID: [id number]. Performed By: #### V ITAD #### [facility] [address] [address] [address] Zurdo Gil GLYCOHEMOGLOBIN A1Con 2021 ADA RECOMMENDATION SEE BELOW Normal [facility] Comment on above: Result Comment: ADA RECOMMENDED LIMIT 4.0 - 6.0 ADA THERAPEUTIC TARGET < 7.0 ACTION SUGGESTED > 7.0 Performed By: #### A 1C #### [facility] [address] [address] [address] Zurdo Gli Glucose [Mass/Vol] 154 mg/dL Normal [facility] Comment on above: Performed By: #### A 1C #### [facility] [address] [place] [address] Dr. Zurdo Gil HbA1c (Bld) [Mass fraction] 7.0 % Critically high 4.5-6.2 [facility] Comment on above: Performed By: #### A 1C #### [facility] [address] [place] [address] Dr. Zurdo Gil LIPID PROFILEon 02-06-2022 CHOL-HDL RATIO NORM SEE BELOW Normal [facility] Comment on above: Result Comment: 3.3 - 4.4 LOW RISK 4.4 - 7.1 AVERAGE RISK 7.1 - 11.0 MODERATE RISK >11.0 HIGH RISK Performed By: #### M CRR #### [facility] [address] [place] [address] Dr. Zurdo Gil Cholesterol [Mass/Vol] 192 mg/dL Normal <=200 [facility] Comment on above: Performed By: #### M CRR #### [facility] [address] [place] [address] Dr. Zurdo Gil Cholesterol in HDL [Mass/Vol] 35 mg/dL Critically low 40-60 [facility] Comment on above: Performed By: #### M CRR #### [facility] [address] [place] [address] Dr. Zurdo Gil Cholesterol in LDL [Mass/Vol] 97.6 mg/dL Normal [facility] Comment on above: Performed By: #### M CRR #### [facility] [address] [place] [address] Dr. Zurdo Gil Cholesterol.total/Ch olesterol in HDL [Mass ratio] 5.5 {ratio} Normal [facility] Comment on above: Performed By: #### M CRR #### [facility] [address] [address] [address] Zurdo Gil HDL NORMAL > or = 60 mg/dl - LOW CARDIOVASCULAR RISK <40 mg/dl - HIGH CARDIOVASCULAR RISK Normal [facility] Comment on above: Performed By: #### M CRR #### [facility] [address] [place] [address] Dr. Zurdo Gil LDL CALC NORMAL SEE BELOW Normal [facility] Comment on above: Result Comment: <100 mg/dl OPTIMAL 100 - 129 mg/dl NEAR OR ABOVE OPTIMAL 130 - 159 mg/dl BORDERLINE HIGH 160 - 189 mg/dl HIGH >190 mg/dl VERY HIGH Performed By: #### M CRR #### [facility] [address] [place] [address] Dr. Zurdo Gil Triglyceride [Mass/Vol] 297 mg/dL Critically high <=150 [facility] Comment on above: Performed By: #### M CRR #### [facility] [address] [place] [address] Dr. Zurdo Gil VLDL CALC 59.4 mg/dL Normal [facility] Comment on above: Performed By: #### M CRR #### [facility] [address] [place] [address] Dr. Zurdo Gil PROF 14(COMP METB)on 022 Albumin [Mass/Vol] 3.7 g/dL Normal 3.4-5.0 [facility] Comment on above: Performed By: #### V ITAD #### [facility] [address] [place] [address] Dr. Zurdo Gil Albumin/Globulin [Mass ratio] 1.1 {ratio} Normal [facility] Comment on above: Performed By: #### V ITAD #### [facility] [address] [place] [address] Dr. Zurdo Gil ALP [Catalytic activity/Vol] 65 U/L Normal 46-116 [facility] Comment on above: Performed By: #### V ITAD #### [facility] [address] [address] [address] Zurdo Gil ALT [Catalytic activity/Vol] 38 U/L Normal 16-63 [facility] Comment on above: Performed By: #### V ITAD #### [facility] [address] [place] [address] Dr. Zurdo Gil Anion gap [Moles/Vol] 13.1 mmol/L Normal [facility] Comment on above: Performed By: #### V ITAD #### [facility] [address] [place] [address] Dr. Zurdo Gil AST [Catalytic activity/Vol] 24 U/L Normal 15-37 [facility] Comment on above: Performed By: #### V ITAD #### [facility] [address] [place] [address] Dr. Zurdo Gil Bilirubin [Mass/Vol] 0.8 mg/dL Normal 0.2-1.0 [facility] Comment on above: Performed By: #### V ITAD #### [facility] [address] [place] [address] Dr. Zurdo Gil Calcium [Mass/Vol] 8.5 mg/dL Normal 8.5-10.1 [facility] Comment on above: Performed By: #### V ITAD #### [facility] [address] [place] [address] Dr. Zurdo Gil Chloride [Moles/Vol] 101 mmol/L Normal 98-107 [facility] Comment on above: Performed By: #### V ITAD #### [facility] [address] [place] [address] Dr. Zurdo Gil CO2 [Moles/Vol] 25.4 mmol/L Normal 21.0-32.0 [facility] Comment on above: Performed By: #### V ITAD #### [facility] [address] [address] [address] Zurdo Gil Creatinine [Mass/Vol] 1.24 mg/dL Normal 0.70-1.30 [facility] Comment on above: Performed By: #### V ITAD #### [facility] [address] [address] [address] Zurdo Gil EGFR-AF SURINAMESE >60 Normal >=60 [facility] Comment on above: Performed By: #### V ITAD #### [facility] [address] [place] [address] Dr. Zurdo Gil EGFR-NON AF SURINAMESE >60 Normal >=60 [facility] Comment on above: Performed By: #### V ITAD #### [facility] [address] [place] [address] Dr. Zurdo Gil Globulin (S) [Mass/Vol] 3.5 g/dL Normal [facility] Comment on above: Performed By: #### V ITAD #### [facility] [address] [address] [address] Zurdo Gil Glucose [Mass/Vol] 203 mg/dL Critically high 74-106 [facility] Comment on above: Performed By: #### V ITAD #### [facility] [address] [place] [address] Dr. Zurdo Gil Potassium [Moles/Vol] 3.5 mmol/L Normal 3.5-5.1 [facility] Comment on above: Performed By: #### V ITAD #### [facility] [address] [address] [address] Zurdo Gil Protein [Mass/Vol] 7.2 g/dL Normal 6.4-8.2 [facility] Comment on above: Performed By: #### V ITAD #### [facility] [address] [place] [address] Dr. Zurdo Gil Sodium [Moles/Vol] 136 mmol/L Normal 136-145 [facility] Comment on above: Performed By: #### V ITAD #### [facility] [address] [place] [address] Dr. Zurdo Gil Urea nitrogen [Mass/Vol] 17.0 mg/dL Normal 7.0-18.0 [facility] Comment on above: Performed By: #### V ITAD #### [facility] [address] [place], [place] [address] Dr. Zurdo Gil Urea nitrogen/Creatinine [Mass ratio] 13.7 mg/mg Normal [facility] Comment on above: Performed By: #### V ITAD #### [facility] [address] [place], [place] [address] Dr. Zurdo Gil Covid-19 PCR ([facility])on 12-23 SARS-CoV-2 (COVID-19) RNA MAYRA+probe Ql [...] for this test is supported by the [place] of Health and Human Service's declaration that [...] longer be used). Performed By: #### C VDAGA #### [facility] [address] [place], [place] [address] Dr. Zurdo Gil MRI KNEE LT WO [...] by: QUINTON SALGADO Date: 2022-01-10 17:55 Normal [facility] XR FOOT RT MIN 3 VIEWSon XR [...] BENOIT Date: 2021-11-11 15:37 Normal [facility] [id number]-FACTOR 1 on 11-06-2021 Insulin-Like Growth Factor I 66 ng/mL Critically low 81-263 [facility] Comment on above: Performed By: #### C VDAGA #### [facility] [address] [address] [address] Zurdo Gil TESTOSTERONE, TOTALon 2021 Testosterone [Mass/Vol] 895 ng/dL Normal 264-916 [facility] Comment on above: Result Comment: Adul t male reference interval is based on a population of healthy nonobese males (BMI <30) between 19 and 39 years old. eddie Myrick.al. JCEM 2017,102;5675-0754. PMID: [id number]. Performed By: #### M CRR #### [facility] [address] [address] [address] Zurdo Gil GLYCOHEMOGLOBIN A1Con 2021 ADA RECOMMENDATION SEE BELOW Normal [facility] Comment on above: Result Comment: ADA RECOMMENDED LIMIT 4.0 - 6.0 ADA THERAPEUTIC TARGET < 7.0 ACTION SUGGESTED > 7.0 Performed By: #### C VDAGA #### [facility] [address] [address] [address] Zurdo Gil Glucose [Mass/Vol] 203 mg/dL Normal [facility] Comment on above: Performed By: #### C VDAGA #### [facility] [address] [address] [address] Zurdo Gil HbA1c (Bld) [Mass fraction] 8.7 % Critically high 4.5-6.2 [facility] Comment on above: Performed By: #### C VDAGA #### [facility] [address] [address] [address] Zurdo Gil LIPID PROFILEon 11-04-2021 CHOL-HDL RATIO NORM SEE BELOW Normal [facility] Comment on above: Result Comment: 3.3 - 4.4 LOW RISK 4.4 - 7.1 AVERAGE RISK 7.1 - 11.0 MODERATE RISK >11.0 HIGH RISK Performed By: #### V ITAD #### [facility] [address] [address] [address] Zurdo Gil Cholesterol [Mass/Vol] 200 mg/dL Normal <=200 [facility] Comment on above: Performed By: #### V ITAD #### [facility] [address] [address] [address] Zurdo Gil Cholesterol in HDL [Mass/Vol] 39 mg/dL Critically low 40-60 [facility] Comment on above: Performed By: #### V ITAD #### [facility] [address] [address] [address] Zurdo Gil Cholesterol in LDL [Mass/Vol] 112.2 mg/dL Normal [facility] Comment on above: Performed By: #### V ITAD #### [facility] [address] [address] [address] Zurdo Gil Cholesterol.total/Ch olesterol in HDL [Mass ratio] 5.1 {ratio} Normal [facility] Comment on above: Performed By: #### V ITAD #### [facility] [address] [address] [address] Zurdo Gil HDL NORMAL > or = 60 mg/dl - LOW CARDIOVASCULAR RISK <40 mg/dl - HIGH CARDIOVASCULAR RISK Normal [facility] Comment on above: Performed By: #### V ITAD #### [facility] [address] [address] [address] Zurdo Gil LDL CALC NORMAL SEE BELOW Normal [facility] Comment on above: Result Comment: <100 mg/dl OPTIMAL 100 - 129 mg/dl NEAR OR ABOVE OPTIMAL 130 - 159 mg/dl BORDERLINE HIGH 160 - 189 mg/dl HIGH >190 mg/dl VERY HIGH Performed By: #### V ITAD #### [facility] [address] [address] [address] Zurdo Gil Triglyceride [Mass/Vol] 244 mg/dL Critically high <=150 [facility] Comment on above: Performed By: #### V ITAD #### [facility] [address] [address] [address] Zurdo Gil VLDL CALC 48.8 mg/dL Normal [facility] Comment on above: Performed By: #### V ITAD #### [facility] [address] [address] [address] Zurdo Gil MICROALB CREAT RATIO RANDOMo n 11-04-2021 mALB 4.9 mg/L Normal <=30.0 [facility] Comment on above: Performed By: #### V ITAD #### [facility] [address] [address] [address] Zurdo Gil MALB CR RATIO 19.9 mg/g Normal 0.0-29.9 [facility] Comment on above: Performed By: #### V ITAD #### [facility] [address] [address] [address] Zurdo Gil MALB CR RATIO RANGE SEE BELOW Normal [facility] Comment on above: Result Comment: NO M ICROALBUMINURIA 0-29 MG/G CLINICAL MICROALBUMINURIA 30-300 MG/G MACROALBUMINURIA >300 MG/G Performed By: #### V ITAD #### [facility] [address] [place] [address] Dr. Zurdo Gil URINE CREAT 245.62 mg/dL Normal 20.00-300.00 [facility] Comment on above: Performed By: #### V ITAD #### [facility] [address] [place] [address] Dr. Zurdo Gil PROF 14(COMP METB)on 022 Albumin [Mass/Vol] 3.8 g/dL Normal 3.4-5.0 [facility] Comment on above: Performed By: #### V ITAD #### [facility] [address] [place] [address] Dr. Zurdo Gil Albumin/Globulin [Mass ratio] 1.1 {ratio} Normal [facility] Comment on above: Performed By: #### V ITAD #### [facility] [address] [place] [address] Dr. Zurdo Gil ALP [Catalytic activity/Vol] 85 U/L Normal 46-116 [facility] Comment on above: Performed By: #### V ITAD #### [facility] [address] [place] [address] Dr. Zurdo Gil ALT [Catalytic activity/Vol] 54 U/L Normal 16-63 [facility] Comment on above: Performed By: #### V ITAD #### [facility] [address] [address] [address] Zurdo Gil Anion gap [Moles/Vol] 15.5 mmol/L Normal [facility] Comment on above: Performed By: #### V ITAD #### [facility] [address] [address] [address] Zurdo Gil AST [Catalytic activity/Vol] 40 U/L Critically high 15-37 [facility] Comment on above: Performed By: #### V ITAD #### [facility] [address] [address] [address] Zurdo Gil Bilirubin [Mass/Vol] 0.7 mg/dL Normal 0.2-1.0 [facility] Comment on above: Performed By: #### V ITAD #### [facility] [address] [place] [address] Dr. Zurdo Gil Calcium [Mass/Vol] 9.1 mg/dL Normal 8.5-10.1 [facility] Comment on above: Performed By: #### V ITAD #### [facility] [address] [place] [address] Dr. Zurdo Gil Chloride [Moles/Vol] 102 mmol/L Normal 98-107 [facility] Comment on above: Performed By: #### V ITAD #### [facility] [address] [place] [address] Dr. Zurdo Gil CO2 [Moles/Vol] 22.9 mmol/L Normal 21.0-32.0 [facility] Comment on above: Performed By: #### V ITAD #### [facility] [address] [place] [address] Dr. Zurdo Gil Creatinine [Mass/Vol] 1.13 mg/dL Normal 0.70-1.30 [facility] Comment on above: Performed By: #### V ITAD #### [facility] [address] [place] [address] Dr. Zurdo Gil EGFR-AF SURINAMESE >60 Normal >=60 [facility] Comment on above: Performed By: #### V ITAD #### [facility] [address] [place] [address] Dr. Zurdo Gil EGFR-NON AF SURINAMESE >60 Normal >=60 [facility] Comment on above: Performed By: #### V ITAD #### [facility] [address] [place] [address] Dr. Zurdo Gil Globulin (S) [Mass/Vol] 3.6 g/dL Normal [facility] Comment on above: Performed By: #### V ITAD #### [facility] [address] [address] [address] Zurdo Gil Glucose [Mass/Vol] 219 mg/dL Critically high 74-[address] [facility] Comment on above: Performed By: #### V ITAD #### [facility] [address] [place] [address] Dr. Zurdo Gil Potassium [Moles/Vol] 3.4 mmol/L Critically low 3.5-5.1 [facility] Comment on above: Performed By: #### V ITAD #### [facility] [address] [place] [address] Dr. Zurdo Gil Protein [Mass/Vol] 7.4 g/dL Normal 6.4-8.2 [facility] Comment on above: Performed By: #### V ITAD #### [facility] [address] [place] [address] Dr. Zurdo Gil Sodium [Moles/Vol] 137 mmol/L Normal 136-145 [facility] Comment on above: Performed By: #### V ITAD #### [facility] [address] [place] [address] Dr. Zurdo Gil Urea nitrogen [Mass/Vol] 21.0 mg/dL Critically high 7.0-18.0 [facility] Comment on above: Performed By: #### V ITAD #### [facility] [address] [place] [address] Dr. Zurdo Gil Urea nitrogen/Creatinine [Mass ratio] 18.6 mg/mg Normal [facility] Comment on above: Performed By: #### V ITAD #### [facility] [address] [address] [address] Zurdo Gil VITAMIN D 25 OHon 11-04-2021 VIT D 25-OH 39.7 ng/mL Normal [facility] Comment on above: Performed By: #### V ITAD #### [facility] [address] [address] [address] Zurdo Gil VIT D RANGES SEE BELOW Normal [facility] Comment on above: Result Comment: <20 ng/mL Vit D deficient 20 - <30 ng/mL Vit D insufficient 30 - 100 ng/mL Vit D sufficient >100 ng/mL Potential Toxicity Performed By: #### V ITAD #### [facility] [address] [address] [address] Zurdo Gil POC GLUCOSE LABon 10-24-2020 Glucose [Mass/Vol] 189 mg/dL High 70-100 [facility] Comment on above: Performed By: #### 8 [id number] #### [facility] [address] [place] [address], [place] Glucose [Mass/Vol] 169 mg/dL High 70-100 [facility] Comment on above: Performed By: #### 8 [id number] #### [facility] [address] [place] [address], [place] POC GLUCOSE LABon 10-23-2020 Glucose [Mass/Vol] 175 mg/dL High 70-100 [facility] Comment on above: Performed By: #### 8 [id number] #### [facility] [address] [place] [address], [place] Glucose [Mass/Vol] 206 mg/dL High 70-100 [facility] Comment on above: Performed By: #### 8 [id number] #### [facility] [address] [place] [address], [place] Glucose [Mass/Vol] 172 mg/dL High 70-100 [facility] Comment on above: Performed By: #### 8 [id number] #### [facility] [address] [place] [address], [place] Glucose [Mass/Vol] 180 mg/dL High 70-100 [facility] Comment on above: Performed By: #### 8 [id number] #### [facility] [address] [place] [address], [facility] POC GLUCOSE LABon 10-22-2020 Glucose [Mass/Vol] 159 mg/dL High 70-100 [facility] Comment on above: Performed By: #### 8 [id number] #### [facility] [address] [place] [address], [place] Glucose [Mass/Vol] 197 mg/dL High 70-100 [facility] Comment on above: Performed By: #### 8 [id number] #### [facility] [address] [place] [address], [place] Glucose [Mass/Vol] 185 mg/dL High 70-100 [facility] Comment on above: Performed By: #### 8 [id number] #### [facility] [address] [place] [address], [place] Glucose [Mass/Vol] 160 mg/dL High 70-100 [facility] Comment on above: Performed By: #### 8 [id number] #### [facility] [address] [place] [address], [facility] PROTHROMBIN TIMEon 1 INR Coag (PPP) [Relative time] 1.00 {INR} Normal 0.91-1.16 [facility] Comment on above: Order Comment: Unkno wn [...] 1995;108:231S-246S. Performed By: #### 5 [id number] #### [address] PT Coag (PPP) [Time] 13.2 s Normal 12.3-14.8 [facility] Comment on above: Order Comment: Unkno wn Result Comment: ALL RESULTS MUST BE INTERPRETED WITH RESPECT TO BLOOD DRAWING ARTIFACT OR DILUTION ERROR OF ANTICOAGULANT AT THE TIME OF SAMPLING. Performed By: #### 5 [id number] #### [address] CERVICAL SPINE [address] [facility] 10-21-2020 CERVICAL SPINE 2 OR 3 [facility] Department of Radiology [address] [place] [id number] Patient Name: RIAN COLEMAN : 1975 Sex: M Age: Race: White Pt. Location: OUT Patient Status: I Ordered Date: 10/20/2020 7:00:00 AM Completed Date: 10/21/2020 04:25 PM Requesting Provider: CHARLES HARDWICK Attending Provider: ZEN DE LA CRUZ Report Copy To: Signs & Symptoms: Post [...] fusion. Electronically signed: Adeline Bautista. Transcribed by: [email or web address], User Resident: Electronically Signed by: ADELINE BAUTISTA @ 10/22/2020 08:01 AM Normal [facility] Comment on above: Order Comment: Hardw are Evaluation, AP AND Lat POC GLUCOSE LABon 10-21-2020 Glucose [Mass/Vol] 164 mg/dL High 70-100 [facility] Comment on above: Performed By: #### 8 [id number] #### [facility] [address] [place] [address], [place] Glucose [Mass/Vol] 170 mg/dL High 70-100 [facility] Comment on above: Performed By: #### 8 [id number] #### [facility] [address] [place] [address], [place] Glucose [Mass/Vol] 194 mg/dL High 70-100 [facility] Comment on above: Performed By: #### 8 [id number] #### [facility] [address] [place] [address], [place] PROTHROMBIN TIMEon INR Coag (PPP) [Relative time] 0.99 {INR} Normal 0.91-1.16 [facility] Comment on above: Order Comment: To cosme Result Comment: ACCC P RECOMMENDED INR FOR [...] 1995;108:231S-246S. Performed By: #### 5 [id number] #### [facility] [address] [place] [address], [facility] PT Coag (PPP) [Time] 13.1 s Normal 12.3-14.8 [facility] Comment on above: Order Comment: To cosme Result Comment: ALL RESULTS MUST BE INTERPRETED WITH RESPECT TO BLOOD DRAWING ARTIFACT OR DILUTION ERROR OF ANTICOAGULANT AT THE TIME OF SAMPLING. Performed By: #### 5 [id number] #### [facility] [address] [place] [address], [facility] BASIC METABOLIC PANELon 05-2 Calcium [Mass/Vol] 8.7 mg/dL Normal 8.6-10.3 [facility] Comment on above: Order Comment: No: D o not add to previous draw Performed By: #### 8 [id number] #### [facility] [address] [place] [address], [facility] Chloride [Moles/Vol] 99 mmol/L Normal 98-107 [facility] Comment on above: Order Comment: No: D o not add to previous draw Performed By: #### 8 [id number] #### [facility] [address] [place] [address], [place] CO2 [Moles/Vol] 26 mmol/L Normal 21-[address] [facility] Comment on above: Order Comment: No: D o not add to previous draw Performed By: #### 8 [id number] #### [facility] [address] [place] [address], [facility] Creatinine [Mass/Vol] 1.04 mg/dL Normal 0.70-1.30 [facility] Comment on above: Order Comment: No: D o not add to previous draw Performed By: #### 8 [id number] #### [facility] [address] [place] [address], [place] GFR/1.73 sq M.predicted among blacks MDRD (S/P/Bld) [Vol rate/Area] mL/min/{1.73_m2} Normal >60 [facility] Comment on above: Order Comment: No: D o not add to previous draw Performed By: #### 8 [id number] #### [facility] [address] [place] [address], [place] GFR/1.73 sq M.predicted among non-blacks MDRD (S/P/Bld) [Vol rate/Area] mL/min/{1.73_m2} Normal >60 [facility] Comment on above: Order Comment: No: D o not add to previous draw Performed By: #### 8 [id number] #### [facility] [address] [place] [address], [place] Glucose [Mass/Vol] 211 mg/dL High 70-100 [facility] Comment on above: Order Comment: No: D o not add to previous draw Performed By: #### 8 [id number] #### [facility] [address] Potassium [Moles/Vol] 3.9 mmol/L Normal 3.5-5.1 [facility] Comment on above: Order Comment: No: D o not add to previous draw Performed By: #### 8 [id number] #### [facility] [address] [place] [address], [facility] Sodium [Moles/Vol] 134 mmol/L Low 136-145 [facility] Comment on above: Order Comment: No: D o not add to previous draw Performed By: #### 8 [id number] #### [facility] [address] Urea nitrogen [Mass/Vol] 14 mg/dL Normal 7-25 [facility] Comment on above: Order Comment: No: D o not add to previous draw Performed By: #### 8 [id number] #### [facility] [address] [facility]. [address] CBC W/DIFFon 10-20-2020 ABS IMM GRANS 0.1 10*3/uL Normal 0.0-0.2 [facility] Comment on above: Order Comment: No: D o not add to previous draw Performed By: #### 8 [id number] #### [facility] [address] [facility]. [address] ABS NEUTROPHILS 10.2 10*3/uL High 1.6-7.[address] [facility] Comment on above: Order Comment: No: D o not add to previous draw Performed By: #### 8 [id number] #### [facility] [address] [facility] [place] [address], [facility] Basophils (Bld) [#/Vol] 0.1 10*3/uL Normal 0.0-0.2 [facility] Comment on above: Order Comment: No: D o not add to previous draw Performed By: #### 8 [id number] #### [facility] [address] [place] [address], [facility] Basophils/100 WBC (Bld) 0.4 % Normal 0.0-1.0 [facility] Comment on above: Order Comment: No: D o not add to previous draw Performed By: #### 8 [id number] #### [facility] [address] [place] [address], [place] Eosinophils (Bld) [#/Vol] 0.1 10*3/uL Normal 0.0-0.5 [facility] Comment on above: Order Comment: No: D o not add to previous draw Performed By: #### 8 [id number] #### [facility] [address] [place] [address], [facility] Eosinophils/100 WBC (Bld) 0.8 % Normal 0.0-6.0 [facility] Comment on above: Order Comment: No: D o not add to previous draw Performed By: #### 8 [id number] #### [facility] [address] [place] [id number], [facility] Erythrocyte distribution width (RBC) [Ratio] 12.2 % Normal 11.5-15.0 [facility] Comment on above: Order Comment: No: D o not add to previous draw Performed By: #### 8 [id number] #### [facility] [address] [place] [address], [facility] Hematocrit (Bld) [Volume fraction] 44.9 % Normal 39.0-50.0 [facility] Comment on above: Order Comment: No: D o not add to previous draw Performed By: #### 8 [id number] #### [facility] [address] [place] [address], [facility] Hemoglobin (Bld) [Mass/Vol] 15.7 g/dL Normal 13.0-17.0 [facility] Comment on above: Order Comment: No: D o not add to previous draw Performed By: #### 8 [id number] #### [facility] [address] IMMATURE GRANS 0.4 % Normal 0.0-1.0 [facility] Comment on above: Order Comment: No: D o not add to previous draw Performed By: #### 8 [id number] #### [facility] [address] [facility] [place] [address], [facility] Lymphocytes (Bld) [#/Vol] 2.3 10*3/uL Normal 1.2-4.0 [facility] Comment on above: Order Comment: No: D o not add to previous draw Performed By: #### 8 [id number] #### [facility] [address] [place] [address], [facility] Lymphocytes/100 WBC (Bld) 16.1 % Low 20.0-45.0 [facility] Comment on above: Order Comment: No: D o not add to previous draw Performed By: #### 8 [id number] #### [facility] [address] [facility] [place] [address], [facility] MCH (RBC) [Entitic mass] 32.6 pg Normal 27.0-33.0 [facility] Comment on above: Order Comment: No: D o not add to previous draw Performed By: #### 8 [id number] #### [facility] [address] [place] [address], [facility] MCHC (RBC) [Mass/Vol] 35.0 g/dL Normal 32.0-35.0 [facility] Comment on above: Order Comment: No: D o not add to previous draw Performed By: #### [id number] #### [facility] [address] [facility] [place] [address], [facility] MCV (RBC) [Entitic vol] 93.2 fL Normal 82.0-98.0 [facility] Comment on above: Order Comment: No: D o not add to previous draw Performed By: #### 8 [id number] #### [facility] [address] [facility] [place] [address], [facility] Monocytes (Bld) [#/Vol] 1.4 10*3/uL High 0.1-1.0 [facility] Comment on above: Order Comment: No: D o not add to previous draw Performed By: #### 8 [id number] #### [facility] [address] [place] [address], [place] MONOS 10.2 % Normal 5.0-12.0 [facility] Comment on above: Order Comment: No: D o not add to previous draw Performed By: #### 8 [id number] #### [facility] [address] [place] [id number], [facility] Neutrophils/100 WBC (Bld) 72.1 % High 40.0-72.0 [facility] Comment on above: Order Comment: No: D o not add to previous draw Performed By: #### 8 [id number] #### [facility] [address] [place] [id number], [facility] Nucleated RBC/100 WBC (Bld) [Ratio] 0 % Normal 0-0 [facility] Comment on above: Order Comment: No: D o not add to previous draw Performed By: #### 8 [id number] #### [facility] [address] [place] [id number], [place] PLAT CNT 204 10*3/uL Normal 150-400 [facility] Comment on above: Order Comment: No: D o not add to previous draw Performed By: #### 8 [id number] #### [facility] [address] [place] [address], [place] RBC (Bld) [#/Vol] 4.82 10*6/uL Normal 4.20-5.70 [facility] Comment on above: Order Comment: No: D o not add to previous draw Performed By: #### 8 [id number] #### [facility] [address] [place] [address], [place] WBC (Bld) [#/Vol] 14.17 10*3/uL High 4.00-10.60 [facility] Comment on above: Order Comment: No: D o not add to previous draw Performed By: #### [id number] #### [facility] [address] [place] [address], [facility] POC GLUCOSE LABon 10-20-2020 Glucose [Mass/Vol] 135 mg/dL High 70-100 [facility] Comment on above: Performed By: #### 8 [id number] #### [facility] [address] [place] [address], [place] Glucose [Mass/Vol] 179 mg/dL High 70-100 [facility] Comment on above: Performed By: #### 8 [id number] #### [facility] [address] [place] [address], [place] Glucose [Mass/Vol] 213 mg/dL High 70-100 [facility] Comment on above: Performed By: #### 8 [id number] #### [facility] [address] [place] [address], [place] Glucose [Mass/Vol] 185 mg/dL High 70-100 [facility] Comment on above: Performed By: #### 8 [id number] #### [facility] [address] [place] [address], [facility] PROTHROMBIN TIMEon INR Coag (PPP) [Relative time] 1.02 {INR} Normal 0.91-1.16 [facility] Comment on above: Order Comment: No: [...] 1995;108:231S-246S. Performed By: #### 8 [id number] #### [address] PT Coag (PPP) [Time] 13.4 s Normal 12.3-14.8 [facility] Comment on above: Order Comment: No: D o not add to previous draw Result Comment: ALL RESULTS MUST BE INTERPRETED WITH RESPECT TO BLOOD DRAWING ARTIFACT OR DILUTION ERROR OF ANTICOAGULANT AT THE TIME OF SAMPLING. Performed By: #### 8 [id number] #### [address] CERVICAL SPINE [address] [facility] 10-19-2020 CERVICAL SPINE 2 OR 3 [facility] Department of Radiology [address] [place] [id number] Patient Name: IRAN COLEMAN : 1975 Sex: M Age: Race: White Pt. Location: [facility] Patient Status: Ordered Date: 10/19/2020 7:30:00 AM Completed Date: 10/19/2020 12:17 PM Requesting Provider: ZEN DE LA CRUZ Attending Provider: ZEN DE LA CRUZ Report Copy To: Signs & Symptoms: C3-7 POSTERIOR CERVICAL DISCECTOMY AND FUSION History: Comments: C3-7 POSTERIOR CERVICAL DISCECTOMY AND FUSION Exam: CERVICAL SPINE 2 OR 3 VWS CERVICAL SPINE 2 OR 3 VWS CLINICAL INFORMATION: Dr De La Cruz and Dr Kahn used 37 seconds of fluoro time for C3-7 posterior fusion bronze c-arm in 0740 out 1210 COMPARISON: None. IMPRESSION: 1. Intraoperative fluoroscopy provided to the clinical service for cervical spine fusion. Approximately 9 images obtained. Electronically signed: Mg Ferreira. Transcribed by: [email or web address], User Resident: Electronically Signed by: MG FERREIRA @ 10/19/2020 01:55 PM Normal [facility] Comment on above: Order Comment: C3-7 POSTERIOR CERVICAL DISCECTOMY AND FUSION Operative Reporton Operative Report MR#: [id number] # [facility] Pt. Name: Rian Coleman Room #: 9D Discharge 09/28/2020 Date: Birthdate: 1975 OPERATIVE REPORT DATE OF SURGERY: 10/19/2020 SURGEON: Zen De La Cruz M.D. BIZTALK CONSULTANT: Modesta Ferreira and Charles Hardwick M.D. 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 ANESTHESIA: General endotracheal. POSITION: Prone position on the Mariano table in reverse Trendelenburg position. OPERATION: 1. C3-C7 posterior cervical spine decompression (25342, 40397h1). 2. C3-C7 posterior segmental cervical instrumentation using Synapse 3.5 mm system from [employer] (88798). 3. C3-C7 posterior cervical fusion using autograft, crush cancellous allograft (95608, 16506 x3). 4. Application and removal of Garcia Chavez tongs (06693). 6. Use of intraoperative fluoroscopy (72263). 7. Local autograft harvesting and use of crush cancellous allograft (12905, ) 8. Modifier 22 due to medical [...] i (more content not included)... Normal [facility] Operative Report MR#: [id number] I [facility] Pt. Name: Rian Coleman Room #: 6AB 162001 Discharge 09/28/2020 Date: Birthdate: 1975 OPERATIVE REPORT DATE OF SURGERY: 10/19/2020 SURGEON: Zen De La Cruz M.D. BIZTALK CONSULTANT: Modesta Ferreira and Charles Hardwick M.D. 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 ANESTHESIA: General endotracheal. POSITION: Prone position on the Mariano table in reverse Trendelenburg position. OPERATION: 1. C3-C7 posterior cervical spine decompression (54271, 13006m2). 2. C3-C7 posterior segmental cervical instrumentation using Synapse 3.5 mm system from [employer] (02996). 3. C3-C7 posterior cervical fusion using autograft, crush cancellous allograft (57358, 38878 x3). 4. Application and removal of Garcia Chavez tongs (98588). 6. Use of intraoperative fluoroscopy (38736). 7. Local autograft harvesting and use of crush cancellous allograft (12808, ) 8. Modifier 22 due to medical [...] d (more content not included)... Normal [facility] POC GLUCOSE LABon 10-19-2020 Glucose [Mass/Vol] 221 mg/dL High 70-100 [facility] Comment on above: Performed By: #### 8 5499 #### [place] [address] [place] [address], [place] Glucose [Mass/Vol] 231 mg/dL High 70-100 [facility] Comment on above: Performed By: #### 8 [id number] #### [facility] [address] [place] [address], [place] Glucose [Mass/Vol] 244 mg/dL High 70-100 [facility] Comment on above: Performed By: #### 8 [id number] #### [facility] [address] [place] [address], [place] Glucose [Mass/Vol] 165 mg/dL High 70-100 [facility] Comment on above: Performed By: #### 8 5499 #### [facility] [address] [facility] [address], [facility] TYPE AND SCREENon 10-19-2020 ABO INTERPRETATION O Normal [facility] Comment on above: Performed By: #### 8 [id number] #### [facility] [address] [place] [address], [place] RH INTERPRETATION Positive Normal The [facility] Comment on above: Performed By: #### 8 [id number] #### [facility] [address] [facility] [address], [facility] CERVICAL SPINE 4 OR 5 VIEWS [facility] Department of Radiology [address] [place] [phone] Patient Name: RIAN COLEMAN : 1975 Sex: M Age: Race: White Pt. Location: Patient Status: D Ordered Date: 09/28/2020 1:05:00 PM Completed Date: 09/28/2020 01:16 PM Requesting Provider: ZEN DE LA CRUZ Attending Provider: Report Copy To: Signs & [...] instability. Electronically signed: MANUEL VU. Transcribed by: [email or web address], User Resident: Electronically Signed by: MANUEL VU @ 09/29/2020 07:17 PM Normal [facility] LUMBAR SPINE [address] [facility] LUMBAR SPINE 4 OR 5 [facility] Department of Radiology [address] [place] [phone] Patient Name: RIAN COLEMAN : 1975 Sex: M Age: Race: White Pt. Location: Patient Status: D Ordered Date: 09/28/2020 1:00:00 PM Completed Date: 09/28/2020 01:16 PM Requesting Provider: ZEN DE LA CRUZ Attending Provider: ZEN DE LA CRUZ Report Copy To: Signs & Symptoms: M51.36 [...] instability. Electronically signed: MANUEL VU. Transcribed by: [email or web address], User Resident: Electronically Signed by: MANUEL VU @ 09/29/2020 07:14 PM Normal [facility] Comment on above: Order Comment: martell khan, priyanka CNOVon 09-06-2020 CNOV Office Visit ([facility]) JAREDRIAN Frankie ([id number]) 1975 M Date Time Provider Department 09/06/20 3:00 PM ASHLEY MERCADO [facility] During your visit today, we recorded the following information about you: Pulse Blood pressure Weight Height 90/minute 179/93 188.2 kg 1.93 m Ashley Mercado MD 09/06/2020 3:23 PM Sign when Signing Visit SPINE SURGERY OUTPATIENT CONSULT SERVICE DATE: 09/06/2020 PCP: Ed Gonsalez DO REFERRING PROVIDER: Ed Kahn MD [address] [place] [address] Consult requested for an opinion regarding the evaluation and treatment of cervical myelopathy. My final impression and recommendations will be communicated back to the requesting physician by way of the shared medical record or letter via US mail. SUBJECTIVE Rian P Jared is a 44 year old male presenting [...] and mye (more content not included)... Normal [facility] 09-06-2020 [facility] Telephone ([facility]) RIAN COLEMAN ([id number]) 1975 M Date Time Provider Department 09/06/20 ASHLEY MERCADO [facility] During your visit today, we recorded the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 Additional Source Comments (unrecognized sect ion and content) No Status Records FoundNo Status Records FoundNo Status Records FoundNo Status Records FoundNo Status Records FoundNo Status Records FoundNo Status Records Found INFORMATION SOURCE (unrecogn ized section and content) DATE CREATED AUTHOR 10/05/2020 [facility] DATE CREATED AUTHOR AUTHOR'S ORGANIZ ATION 11/07/2020 [facility] DATE CREATED AUTHOR AUTHOR'S ORGANIZ ATION 06/26/2021 [facility] DATE CREATED AUTHOR AUTHOR'S ORGANIZ ATION 08/14/2022 [facility] DATE CREATED AUTHOR AUTHOR'S ORGANIZ ATION 10/10/2023 [facility] DATE CREATED AUTHOR AUTHOR'S ORGANIZ ATION 11/19/2023 [facility] DATE CREATED AUTHOR AUTHOR'S ORGANIZ ATION 12/18/2023 [facility] REASON FOR VISIT (unrecogniz ed section and content) lab ordersreview labscovid p ositiveClinicalClinicalClinical Care Teams (unrecognized sec tion and content) Carrier Driver Relationship Specialty Start Date End Date Juan Monterroso, [address] [address] PCP - General Family Medicine 07/15/18 Carrier Driver Relationship Specialty Start Date End Date Juan Monterroso [address] [address] PCP - General Family Medicine 07/15/18 Carrier Driver Relationship Specialty Start Date End Date Juan Monterroso DO [address] [place] [id number] PCP - General Family Medicine 07/15/18 Team Status: Active Member Role Status Dates Juan Monterroso DO Primary Care Provider Active Team Status: Inactive Member Role Status Dates Juan Monterroso DO Primary Care Provide r, Attending Provider Active Start: 2023 End: 2023 Team Status: Inactive Member Role Status Dates Juan Monterroso DO Primary Care Provide r, Attending Provider Active Start: November 10, 2023 End: November 10, 2023 Team Status: Inactive Member Role Status Dates Juan Monterroso DO Primary Care Provider Active S tart: November 25, 2023 End: November 25, 2023 Lamine Ca MD Attending Provider Active Star t: November 25, 2023 End: November 25, 2023 Team Status: Active Member Role Status Dates Juan Monterroso DO Primary Care Provider Active S tart: December 16, 2023 Adriel Rivas II, MD Attending Provider Active Start: December 16, 2023 Team Status: Inactive Member Role Status Dates Juan Monterroso DO Primary Care Provider Active S tart: December 16, 2023 End: December 16, 2023 Adriel Rivas II, MD Attending Provider Active Start: December 16, 2023 End: December 16, 2023 Goals (unrecognized section and content) Goals may be documented in a n alternate section FOR RECORDS PERTAINING TO PATIENTS WHO ARE [...] BE BASED ON THE PRIMARY CLINICAL RECORDS. [facility] [facility]. provides no warranty or guarantee of the accuracy or completeness of information in this document.
[2023-12-21 07:26] VITALS: BP 134/86; PULSE 81; TEMP 36.1; O2SAT 96
[2023-12-21 07:28] LABS: Glucometer 273 mg/dL (74-106)
[2023-12-21 08:12] VITALS: BP 127/71; PULSE 66; O2SAT 93
[2023-12-21] MEDS: 0.9 % SODIUM CHLORIDE 10 ML SYRINGE - SALINE FLUSH INJ (08:14)
[2023-12-21] MEDS: DEXAMETHASONE SOD PHOS 10 MG/ML VIAL INJ (08:14)
[2023-12-21] MEDS: BUPIVACAINE HCL 0.25% PF 25 MG/10 ML VIAL INJ (08:14)
[2023-12-21] MEDS: IOHEXOL 240 MG/ML - 10 ML VIAL 24 MG INJ (08:15)
[2023-12-21] MEDS: LIDOCAINE HCL 2% 400 MG/20 ML MDV 5 ML INJ (08:15)
[2023-12-21 08:16] VITALS: BP 133/76; PULSE 64; O2SAT 94
--- NOTE | 2023-12-21 08:16 | P.ON_ITS ---
Date of procedure: 12/21/23 Pre-op diagnosis: Pain due to lumbar stenosis with neurogenic claudication Post-op diagnosis: same as pre-op Procedure: Procedure: Right L2-3 selective nerve root block Medications: Bupivacaine 0.25% 1cc, lidocaine 2% 1cc, dexamethasone 10mg The patient was seen and examined in the preoperative holding area.? Informed consent was obtained and placed on the chart.? Patient was brought to the medical procedure unit and placed in the prone position where a timeout was completed verifying the correct patient, procedure site, position, and planned special equipment using sterile aseptic technique.? Under direct fluoroscopic visualization a 25-gauge Quincke tipped spinal needle was advanced to the designated neural foramen where contrast dye was injected to show adequate spread.? The needle was inserted at level right L2-3. There was no evidence of vascular or adverse uptake.? Epidural spread was appreciated.? The above- mentioned injectate was then placed in a 1.5 mL aliquot preceded by negative aspiration.? The needle was removed. The surgery site was covered.? Patient was taken to the postprocedural recovery area and monitored for an appropriate length of time before found suitable for discharge in the accompaniment of a responsible adult. Anesthesia: Local Surgeon: Veronica Solo Pathology: none sent Condition: stable Disposition: no change
== END 2023-12-21 08:21 | disposition home or self-care (01) ==
LOC: SURGOUT 07:15
PROVIDERS: PCP Family Medicine; Visit Provider Anesthesiology
DX: M48.062 Spinal stenosis, lumbar region with neurogenic claudication (principal)
CPT/HCPCS: 36415; 64483; 82948; J0665; J1100; Q9966

== ENCOUNTER 2024-01-06 14:20 | Outpatient (OUT) | payer BC, SELFPAY ==
--- NOTE | 2024-01-06 15:21 | P.CN_ITS ---
Consult Note: HPI Data of Consult Patient: known to practice within the last 3 years Consult date: 10/01/23 Requesting Physician: Urvashi Kim NP Primary Care Provider: JUAN MONTERROSO Consult Narrative Reason for consult: chronic low back pain Narrative: Rian Coleman a pleasant 48 year old male with chronic moderate to severe low back pain presents for evaluation and management. Recently evaluated by Dr Peacock and Dr Campbell. Significant loss of functional ability over the last few weeks, is now unable to do anything besides lie flat due to severe pain/weakness. Pain today 3/10 increasing to 8/10 with standing and walking and sitting for periods of time, decreased with lying. Medrol dose pack 09/11 without benefit. Failed to benefit from tylenol, gabapentin 600mg TID, ibuprofen, meloxicam, and tiaznidine. Patient notices that initially meloxicam was helpeful then stopped working, likewise with current ibuprofen. Patient notices tizanidine 4mg HS is helpful for sleeping. Recent right L2,3 SNRB provided significant relief that day, 100% improvement, however no ongoing improvement. [facility], MRI of right hip tomorrow. We completed the right L2,[address] Campbell however the patient does not wish to see him again. Patient has an appointment with Dr Guadalupe this thursday. cc:: CC: Urvashi Kim NP Review of Systems ROS Status of ROS 10 or more systems reviewed and unremark able except as noted in history and below Musculoskeletal Reports: back pain and extremity pain Meds Home Medications and Allergies Home Medications ?Medication ?Instructions ?Recorded ?Confirmed ?Type carvedilol 25 mg tablet 25 mg PO BID 09/18/23 12/21/23 History chlorthalidone 25 mg tablet 25 mg PO DAILY 09/18/23 12/21/23 History empagliflozin 10 mg tablet 10 mg PO DAILY 09/18/23 12/21/23 History (Jardiance) losartan 100 mg tablet 100 mg PO DAILY 09/18/23 12/21/23 History oxycodone-acetaminophen 5 mg-325 1 tab PO Q4H PRN pain #10 tabs 09/18/23 12/21/23 Rx mg tablet (Percocet) potassium chloride 20 mEq 20 meq PO .every other day 09/18/23 12/21/23 History tablet,extended release(part/cryst) (Klor-Con M) cholecalciferol (vitamin D3) 1,250 1,250 mcg PO QWEEK 10/01/23 12/21/23 History mcg (50,000 unit) capsule gabapentin 300 mg capsule 300 mg PO TID 10/01/23 12/21/23 History ibuprofen 200 mg tablet 800 mg PO TID-QID PRN pain 10/01/23 10/05/23 History tizanidine 4 mg capsule 4 mg PO TID PRN muscle spasticity 10/01/23 12/21/23 History vitamin B complex 1 tab PO DAILY 10/01/23 12/21/23 History zinc 50 mg tablet 50 mg PO DAILY 10/01/23 12/21/23 History Allergies Allergy/AdvReac Type Severity Reaction Status Date / Time No Known Drug Allergies Allergy Verified 12/21/23 07:30 Exam Constitutional Documenting provider has reviewed patient's vital signs: yes Common normals: no apparent distress, oriented x3, healthy appearing, alert and well nourished General appearance: cooperative HENMT Common normals: normocephalic, hearing grossly normal bilaterally and moist oral mucous membranes Head and scalp: normocephalic Eye Common normals: PERRL Pupil: PERRL Neck & C-Spine Common normals: full ROM General: normal visual inspection Chest Common normals: inspection of chest normal Respiratory Common normals: normal respiratory effort, no retractions and no use of ac cessory muscles Back & Pelvis Lumbar spine/lower back: ROM limited, pain with ROM, paraspinal muscle tenderness and straight leg raise positive right Sacroiliac joints: SI joint(s) abnormal Other: decreased sensation to right L3,4,5 pattern strength 4/5 in RLE 5/5 in LLE modified positive adriana(patricks), gaenslens, thigh thrust, compression test pain increased in right hip with internal log roll Extremity Common normals: normal to inspection Neuro Common normals: oriented x3, CN's II-XII intact bilaterally, moves all extremities, no focal motor deficits, no sensory deficits noted and deep tendon reflexes 2+ bilaterally Sensorium/orientation: alert Gait (neuro): antalgic Motor exam: strength 5/5 throughout and no movement abnormalities noted Psych Common normals: mental status grossly normal, thought process normal, cooperative, affect normal, speech normal and activity/motor behavior normal Speech: normal speech Thought process: normal thought process Results Additional Findings Additional findings: If on a controlled substance or opioids, I have checked an [place]AR[place] report on this patient and there are no aberrancies noted in the prescribing history.??If on a controlled substance or opioid a drug screen was completed and reviewed within the last year, and if there has not been a drug screen completed we ordered one today to monitor higher risk, state monitored pain medication use. As part of providing excellent, safe, comprehensive care, the following was completed at our patient's visit: 1. A medication reconciliation and review to ensure accurate knowledge of current/active medications, including asking our patients to inform us about any rgla-fka-xysngxo medications or herbal remedies/nutritional supplements/alternative remedies. 2. A review to specifically ensure our patients have had annual screening for screening for depression, screening for tobacco use, and screening for unhealthy alcohol use. For concerning screenings had a discussion with the patient, provided patient education, and recommended follow-up with primary care provider when appropriate. If patient noted with a risk of falling, they received education on strength, gait, and balance training to prevent future risk of falling. Assessment and Plan Assessment and Plan (1) Lumbar stenosis with neurogenic claudication: (2) Lumbar radiculopathy: (3) DDD (degenerative disc disease), lumbar: (4) Myofascial pain: Plan stop ibuprofen, restart mobic 15mg daily PRN with food continue tizanidine, encouraged 2mg daily and 4mg HS f/u with orthopedics and Dr Guadalupe can f/u with our office in 1 month to evaluate medication changes, sooner/later based on Dr Ortega plan
== END 2024-01-06 14:21 | disposition home or self-care (01) ==
LOC: PM 14:23
PROVIDERS: PCP Family Medicine; Visit Provider Nurse Practitioner
DX: M48.062 Spinal stenosis, lumbar region with neurogenic claudication (principal); M54.16 Radiculopathy, lumbar region; M50.30 Other cervical disc degeneration, unspecified cervical region; M79.18 Myalgia, other site
CPT/HCPCS: G0463

== ENCOUNTER 2024-01-07 10:39 | Outpatient (OUT) | payer BC, SELFPAY ==
--- OUTSIDE RECORDS SUMMARY | 2024-01-07 10:43 | XMS_ITS | CCD ---
Author Organization [facility] CliniSywi Care Team Providers Care Courtesy Clerk Name Role Phone ZEN DE LA CRUZ Attending Unavailable JUAN MONTERROSO Primary Care Unavailable JUAN MONTERROSO Referring Unavailable BARBARA ZEN Tuan Admitting Unavailable MONIQUE DE LA CRUZSEIN Tuan Surgeon Unavailable [place] Procedure Practitioner UnavailJuan Rizvi Unavailable Juan Monterroso [...] MARTINEZ Admitting Unavailable LEYLA, ASH Consulting Unavailable LEYLAELDA WinklerASH Attending Unavailable GIRVIN, DR MARTINEZ Primary Care [...] Unavailable KRISS, DR MARTINEZ Primary Care Unavailable PIPOCHANDRA CHAU Consulting Unavailable PIPO, CHANDRA Attending Unavailable PIPO, CHANDRA Admitting Unavailable ZOEY BENOIT Consulting Unavailable KRISS, DR MARTINEZ Primary Care Unavailable MISC, DR CARR Consulting Unavailable MISC, DR CARR Attending Unavailable MISC, DR CARR Admitting Unavailable Juan Monterroso DO Primary Care Provider ELTABRYANT EHAB Attending Unavailable ELGAFYMONIQUEZEN Attending Unavailable BARBARA ZEN Referring Unavailable ZEN DE LA CRUZ Attending Unavailable DO Juan Monterroso Primary Care Provider MD Adriel Rivas II Attending Provider [phone] Tone Lockhart Attending Unavailab Tone Tabares Admitting Unavailab Juan Sinha Primary Care Unavailable Germania JIMENEZ, Veronica Rodriguez Attending Unavailable Germania JIMENEZ, Veronica Rodriguez Attending Unavailable Medications Current Medications Medication Drug Class(es) Dates Sig (Normalized) Sig (Original) atenolol 25 mg oral tablet (3 sources) beta-Adrenergic Ciara Start: 09-12-2010 atenolol (TENORMIN) 25 MG tablet Take 25 mg by mouth. 0 09/12/2010 Active atorvastatin 80 mg oral tablet (7 sources) HMG-CoA Reductase Inhibitor Start: 2023 take [...] 07/15/2018 Active carvedilol 25 mg oral tablet (11 sources) alpha-Adrenergic Ciara, beta-Adrenergic Ciara Start: 2023 [...] 07/21/2018 Active chlorthalidone 25 mg oral tablet (19 sources) Thiazide-like Diuretic Start: 2023 End: 2023 take 1 tablet by mouth once daily Chlorthalidone Active 25 MG PO Daily 2023 3:24pm TAKE 1 TABLET BY MOUTH EVERY DAY*REPLACING HYDROCHLOROTHIAZIDE * take 1 tablet by mouth once Chlo rthalidone 25 MG TAKE 1 TABLET BY MOUTH EVERY DAY*REPLACING HYDROCHLOROTHIAZIDE* Oral Active cholecalciferol 0.125 mg oral tablet (6 sources) Vitamin D Start: 07-12-2020 take 1 [...] 07/15/2018 Active empagliflozin 10 mg oral tablet (8 sources) Sodium-Glucose Cotransporter 2 Inhibitor Start: 2023 End: 01-04-2024 take 10 mg by mouth once daily Empagliflozin Active 10 MG PO Daily January 04, 2024 11:13am Start: 12-16-2022 take 1 tablet by nj every twenty-four hours Jardiance 10 MG 1 tablet Orally Once a day for 90 days Nov, Active 0.6 ml enoxaparin sodium 100 mg/ml prefilled syringe (3 sources) Low Molecular Weight Heparin Start: 07-15-2018 inject 0.6 mL by subcutaneous injection twice daily enoxaparin (LOVENOX) 60 MG/0.6ML injection Inject 0.6 mL under the skin 2 times daily. 50.4 mL 0 07/15/2018 Active hydroCHLOROthiazide 25 mg / losartan potassium 100 mg oral tablet (3 sources) Thiazide Diuretic, Angiotensin 2 Receptor Ciara Start: 09-12-2010 losartan-hydro chlorothiazide (HYZAAR) 100-25 MG per tablet Take by mouth. 0 09/12/2010 Active ibuprofen 800 mg oral tablet (16 sources) Nonsteroidal Anti-inflammatory Drug Start: 01-04-2024 take 800 mg by mouth at mealtime Ibuprofen Active 800 MG PO EVERY 8-12 HOURS January 04, 2024 12:00am with food Start: 07-12-2020 End: 2023 take 800 mg by mouth once daily Ibuprofen Discontinued 800 MG PO Daily July 12, 2020 1:00am 2023 3:10pm Start: 09-12-2010 ibuprofen (MOT RIN) 600 MG tablet Take 600 mg by mouth. 0 09/12/2010 Active take 1 tablet by nj every eight hours at mealtime Ibuprofen 800 MG TAKE 1 TABLET BY MOUTH EVERY 8 HOURS WITH FOOD for 30 Active icosapent ethyl 1000 mg oral capsule (7 sources) Start: 2023 take 2 g by [...] Active losartan potassium 100 mg oral tablet (16 sources) Angiotensin 2 Receptor Ciara Start: 07-16-2018 take 100 mg by mouth once daily Losartan Active 100 MG PO Daily July 12, 2020 1:00am meloxicam 15 mg oral tablet (13 sources) Nonsteroidal Anti-inflammatory Drug Start: 07-20-2023 End: 07-20-2023 take 1 tablet by mouth once daily at mealtime Meloxicam Active 15 MG PO .QD with food July 20, 2023 1:55pm On Hold: pt taking Ibuprofen FreeTextSi tablet Orally Once a day; Note: Source Status: Start; Refills: 1; Qty: 90 Tablet; Provider: Kriss Espinosa Start: 01-12-2023 take 1 tablet by jn th every twenty-four hours Meloxicam 15 MG [...] chloride 20 meq extended release oral tablet (8 sources) Start: 2023 End: 01-04-2024 take 20 mEq by mouth every other day at mealtime Potassium Chloride Active 20 MEQ PO .qod with food January 04, 2024 11:12am Start: 01-12-2023 take 1 tablet by nj th every other day at mealtime Potassium Chloride Paola ER 20 MEQ 1 tablet with food Orally qod for 90 days Dec, Active SITagliptin (4 sources) Dipeptidyl Peptidase 4 Inhibitor Januvia Active Testosterone (12 sources) Androgen Testosterone pil l Active Testosterone inj ection every other week Active tiZANidine 4 mg oral tablet (6 sources) Central alpha-2 Adrenergic Agonist Start: 11-10-2023 [...] / oxyCODONE hydrochloride 7.5 mg oral tablet (6 sources) Opioid Agonist Start: 09-21-2023 End: 11-25-2023 Oxycodone-Acetami nophen (Percocet) 7.5-325 mg tablet Discontinued 1 TAB PO every 6 to 8 hours 28 5 September 21, 2023 November 25, 2023 8:42am amLODIPine [...] Not-Taking clomiPHENE citrate 50 mg oral tablet (12 sources) Estrogen Agonist/Antagonist Start: 07-12-2020 End: 2023 take 50 mg by mouth once daily Clomiphene Citrate Discontinued 50 MG PO Daily July 12, 2020 1:00am 2023 3:18pm take 0.5 tablet by mouth once da maida clomiPHENE Citrate 50 MG 1/2 tablet Orally Once a day Active dextromethorphan hydrobromid e 30 mg / pyrilamine maleate 30 mg oral tablet (2 sources) Uncompetitive F-qffwif-K-aspartate Receptor Antagonist, Sigma-1 Agonist Start: 05-13-2021 Start: 05-13-2021 take 1 tablet by nj th every six hours as needed [place] DMT 30-30 MG 1 tablet Orally q6 hrs prn Apr, Not-Taking gabapentin 300 mg oral capsule (12 sources) Anti-epileptic Agent Start: 11-25-2023 End: 01-04-2024 Gabapentin Discontinued MG PO November 25, 2023 12:00am January 04, 2024 10:31am Start: 11-10-2023 End: 01-04-2024 take 600 mg by mouth three times daily Gabapentin Active 600 MG PO Three times daily January 04, 2024 11:15am hydroCHLOROthiazide 25 mg oral tablet (11 sources) Thiazide Diuretic Start: 07-16-2018 End: 2023 take 25 mg by mouth once daily Hydrochlorothiazide Discontinued 25 MG PO Daily July 12, 2020 1:00am 2023 3:15pm 24 hr metFORMIN hydrochloride 500 mg extended release oral tablet (12 sources) Biguanide Start: 07-12-2020 End: 2023 take 500 mg by mouth twice daily Metformin Discontinued 500 MG PO Twice daily July 12, 2020 1:00am 2023 3:11pm metFORMIN HCl ER 500 MG 2 tablets with morning meal Orally and take 2 tablets with evening meal Active methocarbamol 500 mg oral tablet (2 sources) Muscle Relaxant methylPREDNISolone 4 mg oral tablet (6 sources) Corticosteroid Start : 09-14 End: 09-22 take 1 tablet by mouth once at mealtime Methylprednisolone (Medrol (Mejia)) 4 mg tablets,dose pack Discontinued 0 PO per package directions September 15, 2023 12:00am 2023 3:11pm PO PER PKG DIR for 6 days, take with food omeprazole 20 mg delayed release oral capsule (6 sources) Proton Pump Inhibitor Start : 07-13 End: 11-09 take 20 mg by mouth once daily Omeprazole Discontinued 20 MG PO Daily July 13, 2020 1:00am November 10, 2023 8:49am somatropin 24 mg cartridge (2 sources) Recombinant Human Growth Hormone vitamin b12 1 mg oral tablet (11 sources) Vitamin B12 Start : 07-12 End: 09-22 take 1000 ug by mouth once daily Cyanocobalamin (Vitamin B-12) Discontinued 1000 MCG PO Daily July 12, 2020 1:00am 2023 3:10pm take 1 tablet by mouth every wee k Vitamin B-12 1000 MCG 1 tablet Orally once a week Active take 1 tablet by jn th every twenty-four hours Vitamin B-12 1000 MCG 1 tablet Orally On ce a day Active Zinc (6 sources) Start: 07-12-2020 End: 2023 take 50 mg by mouth once daily Zinc Discontinued 50 MG PO Daily July 12, 2020 1:00am 2023 3:12pm Problems Active Problems Problem Classification Problem Date Documented Da te Episodic/Chronic Diabetes mellitus without complication (5 sources) Type 2 diabetes mellitus without complications; 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: [TYPE 2 DM WITHOUT COMPLICATIONS] Onset: 3 Chronic Diabetes mellitus without complication (12 sources) Hyperglycemia, unspecified; 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: [Prediabetes] Onset: 2 Resolved: 2 Episodic Diseases of white blood cells (7 sources) Increased blood leukocyte number; 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: [Elevated white blood cell count, unspecified] Chronic Disorders of lipid metabolism (13 sources) Hyperlipidemia; 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: [Hyperlipidemia, unspecified] Onset: 2 Resolved: 2 Chronic Essential hypertension (18 sources) Hypertensive disorder; 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: [Essential (primary) hypertension] Onset: 2 Resolved: 2 Chronic Fluid and electrolyte disorders (6 sources) Hypokalemia; 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: [HYPOKALEMIA] Onset: 2 Resolved: 2 Episodic Intracranial injury (7 sources) Unspecified intracranial injury with loss of [...] Resolved: 2 Chronic Other aftercare (1 source) 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; 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: [JAIL CURRENT USE OF INSULIN] Onset: 3 Episodic Other connective tissue disease (6 sources) History of repair of hip joint; [...] 2 Resolved: 2 Chronic Other gastrointestinal disorders (6 sources) Constipation; 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: [Constipation, unspecified] 2023 Episodic Other gastrointestinal disorders (4 sources) Constipation, unspecified; 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: [Constipation, unspecified] 2023 Episodic Other injuries and conditions due to external causes (6 sources) Finding with explicit context; 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: [Personal history of other (healed) physical injury and trauma] 07-12-2020 Episodic Other nervous system disorders (6 sources) Guillain-[place] syndrome; 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: [Guillain-[place] syndrome] 07-12-2020 Chronic Other nervous system disorders (7 sources) Paresthesia; 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: [Paresthesia of skin] Episodic Other nervous system disorders (6 sources) Ataxia; 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: [Ataxia, unspecified] 07-12-2020 Episodic Other non-traumatic joint disorders (6 sources) Hip pain; 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: [Pain in right hip] 2023 Episodic Other non-traumatic joint disorders (6 sources) Pain in right hip; 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: [Pain in joint, pelvic region and thigh] 2023 Episodic Other nutritional; endocrine; and metabolic disorders (13 sources) Obesity; 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: [Obesity, unspecified] 07-12-2020 Chronic Residual codes; unclassified (13 sources) Obstructive sleep apnea syndrome; 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: [Obstructive sleep apnea (adult) (pediatric)] 07-12-2020 Chronic Residual codes; unclassified (7 sources) Amnesia; 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: [Other amnesia] Episodic Residual codes; unclassified (6 sources) History of vaccination; 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: [Personal history of other drug therapy] 07-12-2020 Episodic Spondylosis; intervertebral disc disorders; other back problems (6 sources) Thoracic myelopathy; 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: [Other spondylosis with [...] 01-15-2022 Episodic Other aftercare (2 sources) Other shelter (current) drug therapy Onset: 06-18-2021 Resolved: 11-06-2021 [...] Test Name Value Interpretation Reference Range Facility 11-19-2023 36 Paperwork was just signed yesterday. Will be faxed and scanned into media today. Patient notified and verbalized understanding. [facility] 11-18-2023 36 Patient is calling about his disability paperwork. He would like confirmation that they were sent out. Please call patient # [phone]. [facility] 3611-10-2023 36 Spoke to patient, advised I have paperwork but it is pending signature from Dr. De La Cruz. He will not return until next week. I will fax everything over once complete. Patient verbalized understanding. [facility] 36 Patient called with concerns that his work never received from 10/19-11/15. Patient is requesting that paperwork being done. Patient states that he sent a paper for his short term disability that has not been submitted also. (It was an attachment to email) Please call patient Good # [phone]. [facility] 36on 10-29-2023 36 Spoke to patient - advised of Dr. De La Cruz's recommendation. He requested intermittent leave, which I advised we cannot do. If he needs further time off he will need to speak to his PCP. He verbalized understanding. He will send paperwork to me on [employer]. [facility] [address] De La Cruz 2 more weeks and that is it, he will have to follow up with PCP for FMLA after that. [facility] 36 Patients 2 week work release is over, and patient would like it extended, and patient has paperwork to be emailed [facility] Telephoneon 10-29-2023 Telephone [id number] Rian Coleman P 1975 M Date Provider Department Center 10/29/2023 MG JOAQUIN ORTHO [facility] Family History Problem Relation Age of Onset Diabetes Mother Hypertension Mother Heart attack Mother's Sister Heart attack Mother's Brother Heart attack Maternal Grandfather Family Status - Relation Status Age at Mother Mother's Sister Mother's Brother Maternal Grandfather [facility] Follow-Upon 10-15-2023 Follow-Up [id number] Rian Coleman P 1975 M Date Provider Department Center 10/15/2023 Antonio-ZEN DE LA CRUZ ORTHO [facility] Family History Problem Relation Age of Onset Diabetes Mother Hypertension Mother Heart attack Mother's Sister Heart attack Mother's Brother Heart attack Maternal Grandfather Family Status - Relation Status Age at Mother Mother's Sister Mother's Brother Maternal Grandfather Level of Service:28483 [place] OFFICE/OUTPATIENT ESTABLISHED LOW MDM 20 MIN [facility] 10-08-2023 36 Paperwork faxed and scanned into media. [facility] 10-07-2023 36 Paperwork signed, will fax and scan in after clinic. [facility] 10-05-2023 36 FMLA received and completed. Pending signature from Dr. De La Cruz. [facility] 10-01-2023 36 Confirmed PT order with Dr. De La Cruz. Ordered and faxed to number provided. [facility] 36 Shan at [facility] requesting patients PT order can be faxed to [id number] [facility] Follow-Upon 10-01-2023 Follow-Up [id number] Rian Coleman 1975 M Date Provider Department Center 10/01/2023 ZEN SALGADO NWRina ORTHO [facility] Family History Problem Relation Age of Onset Diabetes Mother Hypertension Mother Heart attack Mother's Sister Heart attack Mother's Brother Heart attack Maternal Grandfather Family Status - Relation Status Age at Mother Mother's Sister Mother's Brother Maternal Grandfather Level of Service:67670 [place] OFFICE/OUTPATIENT ESTABLISHED MOD MDM 30 MIN [facility] 09-30-2023 36 Patient states he is completely helpless and has been doing nothing but laying in bed. He cannot go to the restroom, he cannot get out of bed, he cannot do anything. I advised that Dr. De La Cruz doesn't typically do telemed visits - and in [place] he does not have the capability to [...] I have never personally been to the [place] office, so I am not sure what [...] he would have to be transferred to [place] because this is the only MRI that [...] asked if there was anyone at the [place] location that he could talk to to see if they had a stretcher he could use for the appointment. I advised I am unaware, but provided their phone number for him. I advised him to let me know if the appointment tomorrow will work or not, so we can cancel it if necessary. He verbalized understanding. [facility] 36 Dr. De La Cruz does not do telemed visits. He will have to be seen face to face. Will call patient when available. [facility] 36 Patient has questions regarding tomorrows visit Wanting to know if he can be scheduled for a telemedicine visit as he will have a difficult time making it to the office Please give a call back [facility] 36on 2023 36 Patient advised we cannot see anything from [place] unless he brings us a CD. He states he wants Dr. De La Cruz to look at the report. I advised I have not received anything from [place] but will keep an eye out for it. He verbalized understanding. [facility] 36 Patient called and would like to know if can view his MRI results done at [facility] on 09/22/23 of lumbar spine, engineering technical writer directed patient to call [facility] and request MRI images to bring on a disc to his appointment, patient then wanted to know if would be able to call [facility] and see results of MRI and discuss results prior to appointment. [facility] 36on 09-17-2023 36 Spoke to patient. Advised [...] the restroom. I offered an appointment in [place] instead, since that is closer to where he lives, and I can get him in a lot sooner in [place] than I can in [place] since the first opening is in November. [...] if he could just go to the [facility] ED in his hometown to have the [...] to an appointment either here or in [place] to go over the results with Dr. De La Cruz. He verbalized understanding and states this is a good option. I offered again to get him an appointment so there is at least something on the books and he is not pushed out even further. He opted to schedule an appointment in [place] instead of [place]. He will discuss getting the MRI ordered with his PCP, and if they are not willing he will talk to Dr. De La Cruz at the appointment on 09/30 about ordering the MRI. Patient is agreeable to plan. [facility] 36 Patients requesting an MRI and a sooner appointment. He said he knows the Dr and the dr will just do it. I informed him hes a new patient so he does needs seen at which he said no the dr will just order the mri and call him [facility] Office Visiton 01-12-2023 Follow-up visit [id number] Rian Coleman 1975 M Date Provider Department Center 01/12/2023 Dmitri-SONI HILL CARD [facility] Family History Problem Relation Age of Onset Diabetes Mother Hypertension Mother Heart attack Mother's Sister Heart attack Mother's Brother Heart attack Maternal Grandfather Family Status - Relation Status Age at Mother Mother's Sister Mother's Brother Maternal Grandfather Level of Service:32975 [place] OFFICE/OUTPATIENT ESTABLISHED LOW MDM 20-29 MIN [facility] TESTOSTERONE, FREE,DIRECT, T Jazlyn 07-22-2022 Free Testosterone(Direct) 11.4 pg/mL Normal 6.8-21.5 [facility] Comment on above: Result Comment: Perf ormed at: BN Performed By: #### V ITAD #### [facility] [address] [address] [address] Zurdo Gil Testosterone [Mass/Vol] 373 ng/dL Normal 264-916 [facility] Comment on above: Result Comment: Adul t male reference interval is based on a population of healthy nonobese males (BMI <30) between 19 and 39 years old. eddie Myrick.al. JCEM 2017,102;6415-8043. PMID: [id number]. Performed at: CB Performed By: #### V ITAD #### [facility] [address] [address] [address] Zurdo Gil LLFDAFV-BIXY-ZNNYMW-FACTOR 1 on 07-17-2022 Insulin-Like Growth Factor I 103 ng/mL Normal 81-263 [facility] Comment on above: Performed By: #### V ITAD #### [facility] [address] [address] [address] Zurdo Gil ESTRADIOLon 07-16-2022 Estradiol 41.2 pg/mL Normal 7.6-42.6 [facility] Comment on above: Result Comment: Roch e ECLIA methodology Performed By: #### V ITAD #### [facility] [address] [address] [address] Zurdo Gil PROF CHEM 8 (BAS METB)on Anion gap [Moles/Vol] 13.0 mmol/L Normal [facility] Comment on above: Performed By: #### C VDAGA #### [facility] [address] [address] [address] Zurdo Gil Calcium [Mass/Vol] 9.3 mg/dL Normal 8.5-10.1 [facility] Comment on above: Performed By: #### C VDAGA #### [facility] [address] [address] [address] Zurdo Gil Chloride [Moles/Vol] 97 mmol/L Critically low 98-107 [facility] Comment on above: Performed By: #### C VDAGA #### [facility] [address] [address] [address] Zurdo Gil CO2 [Moles/Vol] 27.4 mmol/L Normal 21.0-32.0 [facility] Comment on above: Performed By: #### C VDAGA #### [facility] [address] [address] [address] Zurdo Gil Creatinine [Mass/Vol] 1.06 mg/dL Normal 0.70-1.30 [facility] Comment on above: Performed By: #### C VDAGA #### [facility] [address] [address] [address] Zurdo Gil EGFR-AF TURKMEN >60 Normal >=60 [facility] Comment on above: Performed By: #### C VDAGA #### [facility] [address] [address] [address] Zurdo Gil EGFR-NON AF TURKMEN >60 Normal >=60 [facility] Comment on above: Performed By: #### C VDAGA #### [facility] [address] [address] [address] Zurdo Gil Glucose [Mass/Vol] 207 mg/dL Critically high 74-106 T [facility] Comment on above: Performed By: #### C VDAGA #### [facility] [address] [address] [address] Zurdo Gil Potassium [Moles/Vol] 3.4 mmol/L Critically low 3.5-5.1 [facility] Comment on above: Performed By: #### C VDAGA #### [facility] [address] [place] [address] Dr. Zurdo Gil Sodium [Moles/Vol] 134 mmol/L Critically low 136-145 Th [facility] Comment on above: Performed By: #### C VDAGA #### [facility] [address] [address] [address] Zurdo Gil Urea nitrogen [Mass/Vol] 15.0 mg/dL Normal 7.0-18.0 [facility] Comment on above: Performed By: #### C VDAGA #### [facility] [address] [address] [address] Zurdo Gil Urea nitrogen/Creatinine [Mass ratio] 14.2 mg/mg Normal [facility] Comment on above: Performed By: #### C VDAGA #### [facility] [address] [address] [address] Zurdo Gil CBC AUTO DIFFon 07-15-2022 BASO # 0.0 103/ul Normal 0.0-0.1 [facility] Comment on above: Performed By: #### C BC #### [facility] [address] [place] [address] Dr. Zurdo Gil Basophils/100 WBC (Bld) 0.3 % Normal 0.2-2.0 [facility] Comment on above: Performed By: #### C BC #### [facility] [address] [place] [address] Dr. Zurdo Gil EO # 0.2 103/ul Normal 0.0-0.7 [facility] Comment on above: Performed By: #### C BC #### [facility] [address] [place] [address] Dr. Zurdo Gil Eosinophils/100 WBC (Bld) 2.5 % Normal 0.9-7.0 [facility] Comment on above: Performed By: #### C BC #### [facility] [address] [place] [address] Dr. Zurdo Gil Erythrocyte distribution width (RBC) [Ratio] 12.0 % Normal 11.0-15.0 [facility] Comment on above: Performed By: #### C BC #### [facility] [address] [place] [address] Dr. Zurdo Gil Hematocrit (Bld) [Volume fraction] 47.5 % Normal 42.0-54.0 [facility] Comment on above: Performed By: #### C BC #### [facility] [address] [place] [address] Dr. Zurdo Gil Hemoglobin (Bld) [Mass/Vol] 17.6 g/dL Normal 14.0-18.0 [facility] Comment on above: Performed By: #### C BC #### [facility] [address] [place] [address] Dr. Zurdo Gil IG # 0.04 10e3/ul Critically high 0.00-0.03 [facility] Comment on above: Performed By: #### C BC #### [facility] [address] [place] [address] Dr. Zurdo Gil IG % 0.4 % Normal 0.0-0.5 [facility] Comment on above: Performed By: #### C BC #### [facility] [address] [place] [address] Dr. Zurdo Gil LYMPH # 2.7 103/ul Normal 1.2-3.8 [facility] Comment on above: Performed By: #### C BC #### [facility] [address] [place] [address] Dr. Zurdo Gil Lymphocytes/100 WBC (Bld) 27.5 % Normal 20.5-60.0 [facility] Comment on above: Performed By: #### C BC #### [facility] [address] [place] [address] Dr. Zurdo Gil MANUAL DIFF REQ NO Normal [facility] Comment on above: Performed By: #### C BC #### [facility] [address] [place] [address] Dr. Zurdo Gil MCH (RBC) [Entitic mass] 32.3 pg Normal 25.9-34.0 [facility] Comment on above: Performed By: #### C BC #### [facility] [address] [place] [address] Dr. Zurdo Gil MCHC (RBC) [Mass/Vol] 37.1 g/dL Critically high 29.9-35.2 [facility] Comment on above: Performed By: #### C BC #### [facility] [address] [place] [address] Dr. Zurdo Gil MCV (RBC) [Entitic vol] 87.2 fL Normal 80.0-94.0 [facility] Comment on above: Performed By: #### C BC #### [facility] [address] [place] [address] Dr. Zurdo Gil MONO # 0.8 103/ul Normal 0.3-0.8 [facility] Comment on above: Performed By: #### C BC #### [facility] [address] [place] [address] Dr. Zurdo Gil Monocytes/100 WBC (Bld) 8.0 % Normal 1.7-12.0 [facility] Comment on above: Performed By: #### C BC #### [facility] [address] [place] [address] Dr. Zurdo Gil NEUT # 5.9 103/ul Normal 1.4-6.5 [facility] Comment on above: Performed By: #### C BC #### [facility] [address] [place] [address] Dr. Zurdo Gil Neutrophils/100 WBC (Bld) 61.3 % Normal 43.0-75.0 [facility] Comment on above: Performed By: #### C BC #### [facility] [address] [place] [address] Dr. Zurdo Gil Platelet mean volume (Bld) [Entitic vol] 8.7 fL Critically low 9.5-13.5 [facility] Comment on above: Performed By: #### C BC #### [facility] [address] [place] [address] Dr. Zurdo Gil PLT 185 103/ul Normal 150-450 [facility] Comment on above: Performed By: #### C BC #### [facility] [address] [place] [address] Dr. Zurdo Gil RBC 5.45 106/ul Normal 4.70-6.10 [facility] Comment on above: Performed By: #### C BC #### [facility] [address] [place] [address] Dr. Zurdo Gil WBC 9.7 103/ul Normal 4.0-11.0 [facility] Comment on above: Performed By: #### C BC #### [facility] [address] [place] [address] Dr. Zurdo Gil FREE T3on 07-15-2022 FREE T3 2.52 pg/mlL Normal 2.18-3.98 [facility] Comment on above: Performed By: #### V ITAD #### [facility] [address] [place], [place] [id number] Dr. Zurdo Gil FREE T4on 07-15-2022 Free T4 [Mass/Vol] 1.02 ng/dL Normal 0.76-1.46 [facility] Comment on above: Performed By: #### F T4, VITB12, VITAD #### [facility] [address] [place] [address] Dr. Zurdo Gil GLYCOHEMOGLOBIN A1Con 2022 ADA RECOMMENDATION SEE BELOW Normal [facility] Comment on above: Result Comment: ADA RECOMMENDED LIMIT 4.0 - 6.0 ADA THERAPEUTIC TARGET < 7.0 ACTION SUGGESTED > 7.0 Performed By: #### A 1C #### [facility] [address] [place] [address] Dr. Zurdo Gil Glucose [Mass/Vol] 134 mg/dL Normal [facility] Comment on above: Performed By: #### A 1C #### [facility] [address] [place] [address] Dr. Zurdo Gil HbA1c (Bld) [Mass fraction] 6.3 % Critically high 4.5-6.2 [facility] Comment on above: Performed By: #### A 1C #### [facility] [address] [place] [address] Dr. Zurdo Gil LIPID PROFILEon 07-15-2022 CHOL-HDL RATIO NORM SEE BELOW Normal [facility] Comment on above: Result Comment: 3.3 - 4.4 LOW RISK 4.4 - 7.1 AVERAGE RISK 7.1 - 11.0 MODERATE RISK >11.0 HIGH RISK Performed By: #### V ITAD #### [facility] [address] [place] [address] Dr. Zurdo Gil Cholesterol [Mass/Vol] 231 mg/dL Critically high <=200 [facility] Comment on above: Performed By: #### V ITAD #### [facility] [address] [place] [address] Dr. Zurdo Gil Cholesterol in HDL [Mass/Vol] 41 mg/dL Normal 40-60 [facility] Comment on above: Performed By: #### V ITAD #### [facility] [address] [address] [address] Zurdo Gil Cholesterol in LDL [Mass/Vol] 130.6 mg/dL Normal [facility] Comment on above: Performed By: #### V ITAD #### [facility] [address] [address] [address] Zurdo Gil Cholesterol.total/Ch olesterol in HDL [Mass ratio] 5.6 {ratio} Normal [facility] Comment on above: Performed By: #### V ITAD #### [facility] [address] [address] [address] Zurdo Gil HDL NORMAL > or = 60 mg/dl - LOW CARDIOVASCULAR RISK <40 mg/dl - HIGH CARDIOVASCULAR RISK Normal [facility] Comment on above: Performed By: #### V ITAD #### [facility] [address] [address] [address] Zurdo Gil LDL CALC NORMAL SEE BELOW Normal [facility] Comment on above: Result Comment: <100 mg/dl OPTIMAL 100 - 129 mg/dl NEAR OR ABOVE OPTIMAL 130 - 159 mg/dl BORDERLINE HIGH 160 - 189 mg/dl HIGH >190 mg/dl VERY HIGH Performed By: #### V ITAD #### [facility] [address] [place] [address] Dr. Zurdo Gil Triglyceride [Mass/Vol] 297 mg/dL Critically high <=150 [facility] Comment on above: Performed By: #### V ITAD #### [facility] [address] [address] [address] Zurdo Gil VLDL CALC 59.4 mg/dL Normal [facility] Comment on above: Performed By: #### V ITAD #### [facility] [address] [address] [address] Zurdo Gil MICROALB CREAT RATIO RANDOMo n 07-15-2022 mALB <1.3 Normal <=30.0 [facility] Comment on above: Performed By: #### M CRR #### [facility] [address] [place] [address] Dr. Zurdo Gil MALB CR RATIO RANGE SEE BELOW Normal [facility] Comment on above: Result Comment: NO M ICROALBUMINURIA 0-29 MG/G CLINICAL MICROALBUMINURIA 30-300 MG/G MACROALBUMINURIA >300 MG/G Performed By: #### M CRR #### [facility] [address] [place] [address] Dr. Zurdo Gil URINE CREAT 37.07 mg/dL Normal 20.00-300.00 [facility] Comment on above: Performed By: #### M CRR #### [facility] [address] [place] [address] Dr. Zurdo Gil PROF 14(COMP METB)on 023 Albumin [Mass/Vol] 4.3 g/dL Normal 3.4-5.0 [facility] Comment on above: Performed By: #### C VDAGA #### [facility] [address] [place] [address] Dr. Zurdo Gil Albumin/Globulin [Mass ratio] 1.0 {ratio} Normal [facility] Comment on above: Performed By: #### C VDAGA #### [facility] [address] [place] [address] Dr. Zurdo Gil ALP [Catalytic activity/Vol] 92 U/L Normal 46-116 [facility] Comment on above: Performed By: #### C VDAGA #### [facility] [address] [place] [address] Dr. Zurdo Gil ALT [Catalytic activity/Vol] 35 U/L Normal 16-63 [facility] Comment on above: Performed By: #### C VDAGA #### [facility] [address] [place] [address] Dr. Zurdo Gil Anion gap [Moles/Vol] 15.2 mmol/L Normal [facility] Comment on above: Performed By: #### C VDAGA #### [facility] [address] [place] [address] Dr. Zurdo Gil AST [Catalytic activity/Vol] 22 U/L Normal 15-37 [facility] Comment on above: Performed By: #### C VDAGA #### [facility] [address] [place] [address] Dr. Zurdo Gil Bilirubin [Mass/Vol] 1.1 mg/dL Critically high 0.2-1.0 [facility] Comment on above: Performed By: #### C VDAGA #### [facility] [address] [place] [address] Dr. Zurdo Gil Calcium [Mass/Vol] 9.4 mg/dL Normal 8.5-10.1 [facility] Comment on above: Performed By: #### C VDAGA #### [facility] [address] [address] [address] Zurdo Gli Chloride [Moles/Vol] 99 mmol/L Normal 98-107 [facility] Comment on above: Performed By: #### C VDAGA #### [facility] [address] [place] [address] Dr. Zurdo Gil CO2 [Moles/Vol] 25.8 mmol/L Normal 21.0-32.0 [facility] Comment on above: Performed By: #### C VDAGA #### [facility] [address] [place] [address] Dr. Zurdo Gil Creatinine [Mass/Vol] 1.01 mg/dL Normal 0.70-1.30 [facility] Comment on above: Performed By: #### C VDAGA #### [facility] [address] [place] [address] Dr. Zurdo Gil EGFR-AF TURKMEN >60 Normal >=60 [facility] Comment on above: Performed By: #### C VDAGA #### [facility] [address] [place] [address] Dr. Zurdo Gil EGFR-NON AF TURKMEN >60 Normal >=60 [facility] Comment on above: Performed By: #### C VDAGA #### [facility] [address] [place] [address] Dr. Zurdo Gil Globulin (S) [Mass/Vol] 4.1 g/dL Normal [facility] Comment on above: Performed By: #### C VDAGA #### [facility] [address] [place] [address] Dr. Zurdo Gil Glucose [Mass/Vol] 185 mg/dL Critically high 74-106 [facility] Comment on above: Performed By: #### C VDAGA #### [facility] [address] [place] [address] Dr. Zurdo Gil Potassium [Moles/Vol] 2.9 mmol/L Critically low 3.5-5.1 [facility] Comment on above: Performed By: #### C VDAGA #### [facility] [address] [place] [address] Dr. Zurdo Gil Protein [Mass/Vol] 8.4 g/dL Critically high 6.4-8.[address] [facility] Comment on above: Performed By: #### C VDAGA #### [facility] [address] [place] [address] Dr. Zurdo Gil Sodium [Moles/Vol] 135 mmol/L Critically low 136-145 [facility] Comment on above: Performed By: #### C VDAGA #### [facility] [address] [place] [address] Dr. Zurdo Gil Urea nitrogen [Mass/Vol] 15.0 mg/dL Normal 7.0-18.0 [facility] Comment on above: Performed By: #### C VDAGA #### [facility] [address] [place] [address] Dr. Zurdo Gil Urea nitrogen/Creatinine [Mass ratio] 14.9 mg/mg Normal [facility] Comment on above: Performed By: #### C VDAGA #### [facility] [address] [place] [address] Dr. Zurdo Gil TSHon 07-15-2022 TSH 2.054 uIU/mL Normal 0.358-3.740 [facility] Comment on above: Performed By: #### C VDAGA #### [facility] [address] [place] [address] Dr. Zurdo Gil VITAMIN B12on 07-15-2022 Cobalamin (Vitamin B12) [Mass/Vol] 1980.0 pg/mL Critically high 193.0-986.0 [facility] Comment on above: Performed By: #### F T4, VITB12, VITAD #### [facility] [address] [address] [address] Zurdo Gil VITAMIN D 25 OHon 07-15-2022 VIT D 25-OH 39.5 ng/mL Normal [facility] Comment on above: Performed By: #### F T4, VITB12, VITAD #### [facility] [address] [address] [address] Zurdo Gil VIT D RANGES SEE BELOW Normal [facility] Comment on above: Result Comment: <20 ng/mL Vit D deficient 20 - <30 ng/mL Vit D insufficient 30 - 100 ng/mL Vit D sufficient >100 ng/mL Potential Toxicity Performed By: #### F T4, VITB12, VITAD #### [facility] [address] [place] [address] Dr. Zurdo Gil ASYMPTOMATIC COVID-19 ANTIGE Non 04-28-2022 EUA Statement SEE BELOW Normal [facility] Comment on above: Result Comment: [...] sooner. Performed By: #### C VDAGA #### [facility] [address] [place] [address] Dr. Zurdo Gil SARS-CoV-2 (COVID-19) RNA MAYRA+probe Ql (Unsp spec) Negative Normal NEGATIVE [facility] Comment on above: Result Comment: Nega tive results are presumptive. They do not preclude infection and should not be used as the sole basis for treatment decisions. Additional confirmatory testing by a molecular method should be considered. Performed By: #### C VDAGA #### [facility] [address] [place] [address] Dr. Zurdo Gil Covid-19 PCR (CVDTB)on 03-27 SARS-CoV-2 (COVID-19) RNA MAYRA+probe Ql (Unsp spec) Detected Critically abnormal NOT DETECTED [facility] Comment on above: Result Comment: This test is not yet approved or cleared by the [place] FDA. When there are no FDA-approved or cleared tests available, and other criteria are met, FDA can make tests available under an emergency access mechanism called an Emergency Use Authorization (EUA). The EUA for this test is supported by the [place] of [employer] and Human Service's declaration that [...] used). Performed By: #### C VDTBH #### [facility] [address] [place] [address] Dr. Zurdo Gil TESRERI-HPZH-YPBBAD-FACTOR 1 on 02-10-2022 Insulin-Like Growth Factor I 67 ng/mL Critically low 81-263 [facility] Comment on above: Performed By: #### C VDAGA #### [facility] [address] [place] [address] Dr. Zurdo Gil MICROALBUMIN/ CREATININE RAT IOon 02-07-2022 Albumin, Urine 8.6 ug/mL Normal Not Estab. [facility] Comment on above: Performed By: #### C VDAGA #### [facility] [address] [place] [address] Dr. Zurdo Gil Albumin/ Creatinine Ratio 8 mg/g creat Normal 0-29 [facility] Comment on above: Result Comment: Norm al: 0 - 29 Moderately increased: 30 - 300 Severely increased: >300 Performed By: #### C VDAGA #### [facility] [address] [place] [address] Dr. Zurdo Gil Creatinine, Urine 103.5 mg/dL Normal Not Estab. [facility] Comment on above: Performed By: #### C VDAGA #### [facility] [address] [address] [address] Zurdo Gil TESTOSTERONE, TOTALon 2021 Testosterone [Mass/Vol] ng/dL Critically high 264-916 [facility] Comment on above: Result Comment: Adul t male reference interval is based on a population of healthy nonobese males (BMI <30) between 19 and 39 years old. eddie Myrick.al. JCEM 2017,102;0641-2940. PMID: [id number]. Performed By: #### V ITAD #### [facility] [address] [address] [address] Zurdo Gil GLYCOHEMOGLOBIN A1Con 2021 ADA RECOMMENDATION SEE BELOW Normal [facility] Comment on above: Result Comment: ADA RECOMMENDED LIMIT 4.0 - 6.0 ADA THERAPEUTIC TARGET < 7.0 ACTION SUGGESTED > 7.0 Performed By: #### A 1C #### [facility] [address] [address] [address] Zurdo Gil Glucose [Mass/Vol] 154 mg/dL Normal [facility] Comment on above: Performed By: #### A 1C #### [facility] [address] [address] [address] Zurdo Gil HbA1c (Bld) [Mass fraction] 7.0 % Critically high 4.5-6.2 [facility] Comment on above: Performed By: #### A 1C #### [facility] [address] [address] [address] Zurdo Gil LIPID PROFILEon 02-06-2022 CHOL-HDL RATIO NORM SEE BELOW Normal [facility] Comment on above: Result Comment: 3.3 - 4.4 LOW RISK 4.4 - 7.1 AVERAGE RISK 7.1 - 11.0 MODERATE RISK >11.0 HIGH RISK Performed By: #### M CRR #### [facility] [address] [address] [address] Zurdo Gil Cholesterol [Mass/Vol] 192 mg/dL Normal <=200 [facility] Comment on above: Performed By: #### M CRR #### [facility] [address] [address] [address] Zurdo Gil Cholesterol in HDL [Mass/Vol] 35 mg/dL Critically low 40-60 [facility] Comment on above: Performed By: #### M CRR #### [facility] [address] [address] [address] Zurdo Gil Cholesterol in LDL [Mass/Vol] 97.6 mg/dL Normal [facility] Comment on above: Performed By: #### M CRR #### [facility] [address] [address] [address] Zurdo Gil Cholesterol.total/Ch olesterol in HDL [Mass ratio] 5.5 {ratio} Normal [facility] Comment on above: Performed By: #### M CRR #### [facility] [address] [place] [address] Dr. Zurdo Gil HDL NORMAL > or = 60 mg/dl - LOW CARDIOVASCULAR RISK <40 mg/dl - HIGH CARDIOVASCULAR RISK Normal [facility] Comment on above: Performed By: #### M CRR #### [facility] [address] [place] [address] Dr. Zurdo Gil LDL CALC NORMAL SEE BELOW Normal [facility] Comment on above: Result Comment: <100 mg/dl OPTIMAL 100 - 129 mg/dl NEAR OR ABOVE OPTIMAL 130 - 159 mg/dl BORDERLINE HIGH 160 - 189 mg/dl HIGH >190 mg/dl VERY HIGH Performed By: #### M CRR #### [facility] [address] [place] [address] Dr. Zurdo Gil Triglyceride [Mass/Vol] 297 mg/dL Critically high <=150 [facility] Comment on above: Performed By: #### M CRR #### [facility] [address] [place] [address] Dr. Zurdo Gil VLDL CALC 59.4 mg/dL Normal [facility] Comment on above: Performed By: #### M CRR #### [facility] [address] [place] [address] Dr. Zurdo Gil PROF 14(COMP METB)on 022 Albumin [Mass/Vol] 3.7 g/dL Normal 3.4-5.0 [facility] Comment on above: Performed By: #### V ITAD #### [facility] [address] [place] [address] Dr. Zurdo Gil Albumin/Globulin [Mass ratio] 1.1 {ratio} Normal [facility] Comment on above: Performed By: #### V ITAD #### [facility] [address] [place] [address] Dr. Zurdo Gil ALP [Catalytic activity/Vol] 65 U/L Normal 46-116 [facility] Comment on above: Performed By: #### V ITAD #### [facility] [address] [place] [address] Dr. Zurdo Gil ALT [Catalytic activity/Vol] 38 U/L Normal 16-63 [facility] Comment on above: Performed By: #### V ITAD #### [facility] [address] [place] [address] Dr. Zurdo Gil Anion gap [Moles/Vol] 13.1 mmol/L Normal [facility] Comment on above: Performed By: #### V ITAD #### [facility] [address] [place] [address] Dr. Zurdo Gil AST [Catalytic activity/Vol] 24 U/L Normal 15-37 [facility] Comment on above: Performed By: #### V ITAD #### [facility] [address] [place] [address] Dr. Zurdo Gil Bilirubin [Mass/Vol] 0.8 mg/dL Normal 0.2-1.0 [facility] Comment on above: Performed By: #### V ITAD #### [facility] [address] [place] [address] Dr. Zurdo Gil Calcium [Mass/Vol] 8.5 mg/dL Normal 8.5-10.1 [facility] Comment on above: Performed By: #### V ITAD #### [facility] [address] [place] [address] Dr. Zurdo Gil Chloride [Moles/Vol] 101 mmol/L Normal 98-107 [facility] Comment on above: Performed By: #### V ITAD #### [facility] [address] [place] [address] Dr. Zurdo Gil CO2 [Moles/Vol] 25.4 mmol/L Normal 21.0-32.0 [facility] Comment on above: Performed By: #### V ITAD #### [facility] [address] [address] [address] Zurdo Gil Creatinine [Mass/Vol] 1.24 mg/dL Normal 0.70-1.30 [facility] Comment on above: Performed By: #### V ITAD #### [facility] [address] [place] [address] Dr. Zurdo Gil EGFR-AF TURKMEN >60 Normal >=60 [facility] Comment on above: Performed By: #### V ITAD #### [facility] [address] [place] [address] Dr. Zurdo Gil EGFR-NON AF TURKMEN >60 Normal >=60 [facility] Comment on above: Performed By: #### V ITAD #### [facility] [address] [place] [address] Dr. Zurdo Gil Globulin (S) [Mass/Vol] 3.5 g/dL Normal [facility] Comment on above: Performed By: #### V ITAD #### [facility] [address] [address] [address] Zudro Gil Glucose [Mass/Vol] 203 mg/dL Critically high 74-[address] [facility] Comment on above: Performed By: #### V ITAD #### [facility] [address] [address] [address] Zurdo Gil Potassium [Moles/Vol] 3.5 mmol/L Normal 3.5-5.1 [facility] Comment on above: Performed By: #### V ITAD #### [facility] [address] [place] [address] Dr. Zurdo Gil Protein [Mass/Vol] 7.2 g/dL Normal 6.4-8.2 [facility] Comment on above: Performed By: #### V ITAD #### [facility] [address] [address] [address] Zurdo Gil Sodium [Moles/Vol] 136 mmol/L Normal 136-145 [facility] Comment on above: Performed By: #### V ITAD #### [facility] [address] [address] [address] Zurdo Gil Urea nitrogen [Mass/Vol] 17.0 mg/dL Normal 7.0-18.0 [facility] Comment on above: Performed By: #### V ITAD #### [facility] [address] [address] [address] Zurdo Gil Urea nitrogen/Creatinine [Mass ratio] 13.7 mg/mg Normal [facility] Comment on above: Performed By: #### V ITAD #### [facility] [address] [place] [address] Dr. Zurdo Gil Covid-19 PCR ([facility])on 12-23 SARS-CoV-2 (COVID-19) RNA MAYRA+probe Ql (Unsp spec) Not detected Normal NOT DETECTED [facility] Comment on above: Result Comment: When diagnostic [...] for this test is supported by the [place] [employer] and Human [employer]'s declaration that [...] used). Performed By: #### C VDAGA #### [facility] [address] [address] [address] Zurdo Gil MRI KNEE LT WO [...] by: QUINTON SALGADO Date: 2022-01-10 17:55 Normal [facility] XR FOOT RT MIN 3 VIEWSon [...] by: ZOEY BENOIT Date: 2021-11-11 15:37 Normal [facility] LYWKTOE-UXCS-PPRKQB-FACTOR 1 on 11-06-2021 Insulin-Like Growth Factor I 66 ng/mL Critically low 81-263 [facility] Comment on above: Performed By: #### C VDAGA #### [facility] [address] [place] [address] Dr. Zurdo Gil TESTOSTERONE, TOTALon 2021 Testosterone [Mass/Vol] 895 ng/dL Normal 264-916 [facility] Comment on above: Result Comment: Adul t male reference interval is based on a population of healthy nonobese males (BMI <30) between 19 and 39 years old. Elen et.al. JCEM 2017,102;[id number]. PMID: [id number]. Performed By: #### M CRR #### [facility] [address] [place] [address] Dr. Zurdo Gil GLYCOHEMOGLOBIN A1Con 2021 ADA RECOMMENDATION SEE BELOW Normal [facility] Comment on above: Result Comment: ADA RECOMMENDED LIMIT 4.0 - 6.0 ADA THERAPEUTIC TARGET < 7.0 ACTION SUGGESTED > 7.0 Performed By: #### C VDAGA #### [facility] [address] [place] [address] Dr. Zurdo Gil Glucose [Mass/Vol] 203 mg/dL Normal [facility] Comment on above: Performed By: #### C VDAGA #### [facility] [address] [address] [address] Zurdo Gil HbA1c (Bld) [Mass fraction] 8.7 % Critically high 4.5-6.2 [facility] Comment on above: Performed By: #### C VDAGA #### [facility] [address] [place] [address] Dr. Zurdo Gil LIPID PROFILEon 11-04-2021 CHOL-HDL RATIO NORM SEE BELOW Normal [facility] Comment on above: Result Comment: 3.3 - 4.4 LOW RISK 4.4 - 7.1 AVERAGE RISK 7.1 - 11.0 MODERATE RISK >11.0 HIGH RISK Performed By: #### V ITAD #### [facility] [address] [address] [address] Zurdo Gil Cholesterol [Mass/Vol] 200 mg/dL Normal <=200 [facility] Comment on above: Performed By: #### V ITAD #### [facility] [address] [address] [address] Zurdo Gil Cholesterol in HDL [Mass/Vol] 39 mg/dL Critically low 40-60 [facility] Comment on above: Performed By: #### V ITAD #### [facility] [address] [address] [address] Zurdo Gil Cholesterol in LDL [Mass/Vol] 112.2 mg/dL Normal [facility] Comment on above: Performed By: #### V ITAD #### [facility] [address] [address] [address] Zurdo Gil Cholesterol.total/Ch olesterol in HDL [Mass ratio] 5.1 {ratio} Normal [facility] Comment on above: Performed By: #### V ITAD #### [facility] [address] [address] [address] Zurdo Gil HDL NORMAL > or = 60 mg/dl - LOW CARDIOVASCULAR RISK <40 mg/dl - HIGH CARDIOVASCULAR RISK Normal [facility] Comment on above: Performed By: #### V ITAD #### [facility] [address] [address] [address] Zurdo Gil LDL CALC NORMAL SEE BELOW Normal [facility] Comment on above: Result Comment: <100 mg/dl OPTIMAL 100 - 129 mg/dl NEAR OR ABOVE OPTIMAL 130 - 159 mg/dl BORDERLINE HIGH 160 - 189 mg/dl HIGH >190 mg/dl VERY HIGH Performed By: #### V ITAD #### [facility] [address] [address] [address] Zurdo Gil Triglyceride [Mass/Vol] 244 mg/dL Critically high <=150 [facility] Comment on above: Performed By: #### V ITAD #### [facility] [address] [address] [address] Zurdo Gil VLDL CALC 48.8 mg/dL Normal [facility] Comment on above: Performed By: #### V ITAD #### [facility] [address] [address] [address] Zurdo Gil MICROALB CREAT RATIO RANDOMo n 11-04-2021 mALB 4.9 mg/L Normal <=30.0 [facility] Comment on above: Performed By: #### V ITAD #### [facility] [address] [address] [address] Zurdo Gil MALB CR RATIO 19.9 mg/g Normal 0.0-29.9 [facility] Comment on above: Performed By: #### V ITAD #### [facility] [address] [address] [address] Zurdo Gil MALB CR RATIO RANGE SEE BELOW Normal [facility] Comment on above: Result Comment: NO M ICROALBUMINURIA 0-29 MG/G CLINICAL MICROALBUMINURIA 30-300 MG/G MACROALBUMINURIA >300 MG/G Performed By: #### V ITAD #### [facility] [address] [place] [address] Dr. Zurdo Gil URINE CREAT 245.62 mg/dL Normal 20.00-300.00 [facility] Comment on above: Performed By: #### V ITAD #### [facility] [address] [address] [address] Zurdo Gil PROF 14(COMP METB)on 022 Albumin [Mass/Vol] 3.8 g/dL Normal 3.4-5.0 [facility] Comment on above: Performed By: #### V ITAD #### [facility] [address] [place] [address] Dr. Zurdo Gil Albumin/Globulin [Mass ratio] 1.1 {ratio} Normal [facility] Comment on above: Performed By: #### V ITAD #### [facility] [address] [address] [address] Zurdo Gil ALP [Catalytic activity/Vol] 85 U/L Normal 46-116 [facility] Comment on above: Performed By: #### V ITAD #### [facility] [address] [place] [address] Dr. Zurdo Gil ALT [Catalytic activity/Vol] 54 U/L Normal 16-63 [facility] Comment on above: Performed By: #### V ITAD #### [facility] [address] [address] [address] Zurdo Gil Anion gap [Moles/Vol] 15.5 mmol/L Normal [facility] Comment on above: Performed By: #### V ITAD #### [facility] [address] [place] [address] Dr. Zurdo Gil AST [Catalytic activity/Vol] 40 U/L Critically high 15-37 [facility] Comment on above: Performed By: #### V ITAD #### [facility] [address] [place] [address] Dr. Zurdo Gil Bilirubin [Mass/Vol] 0.7 mg/dL Normal 0.2-1.0 [facility] Comment on above: Performed By: #### V ITAD #### [facility] [address] [place] [address] Dr. Zurdo Gil Calcium [Mass/Vol] 9.1 mg/dL Normal 8.5-10.1 [facility] Comment on above: Performed By: #### V ITAD #### [facility] [address] [place] [address] Dr. Zurdo Gil Chloride [Moles/Vol] 102 mmol/L Normal 98-107 [facility] Comment on above: Performed By: #### V ITAD #### [facility] [address] [address] [address] Zurdo Gil CO2 [Moles/Vol] 22.9 mmol/L Normal 21.0-32.0 [facility] Comment on above: Performed By: #### V ITAD #### [facility] [address] [place] [address] Dr. Zurdo Gil Creatinine [Mass/Vol] 1.13 mg/dL Normal 0.70-1.30 [facility] Comment on above: Performed By: #### V ITAD #### [facility] [address] [place] [address] Dr. Zurdo Gil EGFR-AF TURKMEN >60 Normal >=60 [facility] Comment on above: Performed By: #### V ITAD #### [facility] [address] [place] [address] Dr. Zurdo iGl EGFR-NON AF TURKMEN >60 Normal >=60 [facility] Comment on above: Performed By: #### V ITAD #### [facility] [address] [place] [address] Dr. Zurdo Gil Globulin (S) [Mass/Vol] 3.6 g/dL Normal [facility] Comment on above: Performed By: #### V ITAD #### [facility] [address] [place] [address] Dr. Zurdo Gil Glucose [Mass/Vol] 219 mg/dL Critically high 74-[address] [facility] Comment on above: Performed By: #### V ITAD #### [facility] [address] [place] [address] Dr. Zurdo Gil Potassium [Moles/Vol] 3.4 mmol/L Critically low 3.5-5.1 [facility] Comment on above: Performed By: #### V ITAD #### [facility] [address] [place] [address] Dr. Zurdo Gil Protein [Mass/Vol] 7.4 g/dL Normal 6.4-8.2 [facility] Comment on above: Performed By: #### V ITAD #### [facility] [address] [place] [address] Dr. Zurdo Gil Sodium [Moles/Vol] 137 mmol/L Normal 136-145 [facility] Comment on above: Performed By: #### V ITAD #### [facility] [address] [place] [address] Dr. Zurdo Gil Urea nitrogen [Mass/Vol] 21.0 mg/dL Critically high 7.0-18.0 [facility] Comment on above: Performed By: #### V ITAD #### [facility] [address] [place] [address] Dr. Zurdo Gil Urea nitrogen/Creatinine [Mass ratio] 18.6 mg/mg Normal [facility] Comment on above: Performed By: #### V ITAD #### [facility] [address] [place] [address] Dr. Zurdo Gil VITAMIN D 25 OHon 11-04-2021 VIT D 25-OH 39.7 ng/mL Normal [facility] Comment on above: Performed By: #### V ITAD #### [facility] [address] [place] [address] Dr. Zurdo Gil VIT D RANGES SEE BELOW Normal [facility] Comment on above: Result Comment: <20 ng/mL Vit D deficient 20 - <30 ng/mL Vit D insufficient 30 - 100 ng/mL Vit D sufficient >100 ng/mL Potential Toxicity Performed By: #### V ITAD #### [facility] [address] [place] [address] Dr. Zurdo Gil POC GLUCOSE LABon 10-24-2020 Glucose [Mass/Vol] 189 mg/dL High 70-100 [facility] Comment on above: Performed By: #### 8 [id number] #### [facility] [address] [place] [place] [address], [place] Glucose [Mass/Vol] 169 mg/dL High 70-100 [facility] Comment on above: Performed By: #### 8 [id number] #### [facility] [address] [place] [address], [place] POC GLUCOSE LABon 10-23-2020 Glucose [Mass/Vol] 175 mg/dL High 70-100 [facility] Comment on above: Performed By: #### 8 [id number] #### [facility] [address] [place] [address], [place] Glucose [Mass/Vol] 206 mg/dL High 70-100 [facility] Comment on above: Performed By: #### 8 [id number] #### [facility] [address] [place] [address], [place] Glucose [Mass/Vol] 172 mg/dL High 70-100 [facility] Comment on above: Performed By: #### 8 [id number] #### [facility] [address] [place] [address], [place] Glucose [Mass/Vol] 180 mg/dL High 70-100 [facility] Comment on above: Performed By: #### 8 [id number] #### [facility] [address] [place] [address], [place] POC GLUCOSE LABon 10-22-2020 Glucose [Mass/Vol] 159 mg/dL High 70-100 [facility] Comment on above: Performed By: #### 8 [id number] #### [facility] [address] [place] [address], [place] Glucose [Mass/Vol] 197 mg/dL High 70-100 [facility] Comment on above: Performed By: #### 8 [id number] #### [facility] [address] [place] [address], [place] Glucose [Mass/Vol] 185 mg/dL High 70-100 [facility] Comment on above: Performed By: #### 8 [id number] #### [facility] [address] [place] [address], [place] Glucose [Mass/Vol] 160 mg/dL High 70-100 [facility] Comment on above: Performed By: #### 8 [id number] #### [facility] [address] [place] [address], [place] PROTHROMBIN TIMEon INR Coag (PPP) [Relative time] 1.00 {INR} Normal 0.91-1.16 The [facility] Comment on above: Order Comment: To [...] 1995;108:231S-246S. Performed By: #### 5 [id number] #### [address] PT Coag (PPP) [Time] 13.2 s Normal 12.3-14.8 [facility] Comment on above: Order Comment: To wn Result Comment: ALL RESULTS MUST BE INTERPRETED WITH RESPECT TO BLOOD DRAWING ARTIFACT OR DILUTION ERROR OF ANTICOAGULANT AT THE TIME OF SAMPLING. Performed By: #### 5 [id number] #### [address] CERVICAL SPINE 2 OR 3 [facility] 10-21-2020 CERVICAL SPINE 2 OR 3 [facility] Department of Radiology [address] [place] [id number] Patient Name: RIAN COLEMAN : 1975 [...] fusion. Electronically signed: Adeline Bautista. Transcribed by: [email or web address], User Resident: Electronically Signed by: ADELINE BAUTISTA @ 10/22/2020 08:01 AM Normal [facility] Comment on above: Order Comment: Hardw are Evaluation, AP AND Lat POC GLUCOSE LABon 10-21-2020 Glucose [Mass/Vol] 164 mg/dL High 70-100 [facility] Comment on above: Performed By: #### 8 [id number] #### [facility] [address] [place] [address], [facility] Glucose [Mass/Vol] 170 mg/dL High 70-100 [facility] Comment on above: Performed By: #### 8 [id number] #### [facility] [address] Glucose [Mass/Vol] 194 mg/dL High 70-100 [facility] Comment on above: Performed By: #### 8 [id number] #### [facility] [address] [facility] [address] [facility] PROTHROMBIN TIMEon 1 INR Coag (PPP) [Relative time] 0.99 {INR} Normal 0.91-1.16 The [facility] Comment on above: Order Comment: Brendano wn Result Comment: ACCC P RECOMMENDED INR [...] 1995;108:231S-246S. Performed By: #### 5 [id number] #### [facility] [address] [place] [address], [facility] PT Coag (PPP) [Time] 13.1 s Normal 12.3-14.8 The [facility] Comment on above: Order Comment: Unkno wn Result Comment: ALL RESULTS MUST BE INTERPRETED WITH RESPECT TO BLOOD DRAWING ARTIFACT OR DILUTION ERROR OF ANTICOAGULANT AT THE TIME OF SAMPLING. Performed By: #### 5 [id number] #### [facility] [address] [place] [address], [facility] BASIC METABOLIC PANELon 05-2 Calcium [Mass/Vol] 8.7 mg/dL Normal 8.6-10.3 [facility] Comment on above: Order Comment: No: D o not add to previous draw Performed By: #### 8 [id number] #### [facility] [address] [place] [address], [place] Chloride [Moles/Vol] 99 mmol/L Normal 98-107 [facility] Comment on above: Order Comment: No: D o not add to previous draw Performed By: #### 8 [id number] #### [facility] [address] [place] [address], [place] CO2 [Moles/Vol] 26 mmol/L Normal 21-31 [facility] Comment on above: Order Comment: No: D o not add to previous draw Performed By: #### 8 [id number] #### [facility] [address] [place] [address], [place] Creatinine [Mass/Vol] 1.04 mg/dL Normal 0.70-1.30 The [facility] Comment on above: Order Comment: No: D o not add to previous draw Performed By: #### 8 [id number] #### [facility] [address] [place] [address], [place] GFR/1.73 sq M.predicted among blacks MDRD (S/P/Bld) [Vol rate/Area] mL/min/{1.73_m2} Normal >60 The [facility] Comment on above: Order Comment: No: D o not add to previous draw Performed By: #### 8 [id number] #### [facility] [address] [place] [address], [place] GFR/1.73 sq M.predicted among non-blacks MDRD (S/P/Bld) [Vol rate/Area] mL/min/{1.73_m2} Normal >60 The [facility] Comment on above: Order Comment: No: D o not add to previous draw Performed By: #### 8 [id number] #### [facility] [address] [place] [id number], [facility] Glucose [Mass/Vol] 211 mg/dL High 70-100 [facility] Comment on above: Order Comment: No: D o not add to previous draw Performed By: #### 8 [id number] #### [facility] [address] [place] [id number], [facility] Potassium [Moles/Vol] 3.9 mmol/L Normal 3.5-5.1 The [facility] Comment on above: Order Comment: No: D o not add to previous draw Performed By: #### 8 [id number] #### [facility] [address] [place] [id number], [facility] Sodium [Moles/Vol] 134 mmol/L Low 136-145 [facility] Comment on above: Order Comment: No: D o not add to previous draw Performed By: #### 8 [id number] #### [facility] [address] [place] [address], [facility] Urea nitrogen [Mass/Vol] 14 mg/dL Normal 7-25 The [facility] Comment on above: Order Comment: No: D o not add to previous draw Performed By: #### 8 [id number] #### [facility] [address] [place] [address], [facility] CBC W/DIFFon 10-20-2020 ABS IMM GRANS 0.1 10*3/uL Normal 0.0-0.2 The [facility] Comment on above: Order Comment: No: D o not add to previous draw Performed By: #### 8 [id number] #### [facility] [address] [place] [id number], [facility] ABS NEUTROPHILS 10.2 10*3/uL High 1.6-7.6 The [facility] Comment on above: Order Comment: No: D o not add to previous draw Performed By: #### 8 [id number] #### [facility] [address] [place] [address], [facility] Basophils (Bld) [#/Vol] 0.1 10*3/uL Normal 0.0-0.2 The [facility] Comment on above: Order Comment: No: D o not add to previous draw Performed By: #### 8 [id number] #### [facility] [address] [place] [address], [place] Basophils/100 WBC (Bld) 0.4 % Normal 0.0-1.0 The [facility] Comment on above: Order Comment: No: D o not add to previous draw Performed By: #### 8 [id number] #### [facility] [address] [place] [address], [facility] Eosinophils (Bld) [#/Vol] 0.1 10*3/uL Normal 0.0-0.5 The [facility] Comment on above: Order Comment: No: D o not add to previous draw Performed By: #### 8 [id number] #### [facility] [address] [place] [address], [facility] Eosinophils/100 WBC (Bld) 0.8 % Normal 0.0-6.0 The [facility] Comment on above: Order Comment: No: D o not add to previous draw Performed By: #### 8 [id number] #### [facility] [address] [place] [id number], [facility] Erythrocyte distribution width (RBC) [Ratio] 12.2 % Normal 11.5-15.0 The [facility] Comment on above: Order Comment: No: D o not add to previous draw Performed By: #### 8 [id number] #### [facility] [address] [place] [address], [facility] Hematocrit (Bld) [Volume fraction] 44.9 % Normal 39.0-50.0 The [facility] Comment on above: Order Comment: No: D o not add to previous draw Performed By: #### 8 [id number] #### [facility] [address] [place] [address], [facility] Hemoglobin (Bld) [Mass/Vol] 15.7 g/dL Normal 13.0-17.0 The [facility] Comment on above: Order Comment: No: D o not add to previous draw Performed By: #### 8 [id number] #### [facility] [address] [place] [id number], [facility] IMMATURE GRANS 0.4 % Normal 0.0-1.0 The [facility] Comment on above: Order Comment: No: D o not add to previous draw Performed By: #### 8 [id number] #### [facility] [address] [place] [address], [facility] Lymphocytes (Bld) [#/Vol] 2.3 10*3/uL Normal 1.2-4.0 The [facility] Comment on above: Order Comment: No: D o not add to previous draw Performed By: #### 8 [id number] #### [facility] [address] [place] [address], [facility] Lymphocytes/100 WBC (Bld) 16.1 % Low 20.0-45.0 The [facility] Comment on above: Order Comment: No: D o not add to previous draw Performed By: #### 8 [id number] #### [facility] [address] [facility] [place] [address], [facility] MCH (RBC) [Entitic mass] 32.6 pg Normal 27.0-33.0 The [facility] Comment on above: Order Comment: No: D o not add to previous draw Performed By: #### 8 [id number] #### [facility] [address] [facility] [place] [address], [facility] MCHC (RBC) [Mass/Vol] 35.0 g/dL Normal 32.0-35.0 The [facility] Comment on above: Order Comment: No: D o not add to previous draw Performed By: #### 8 [id number] #### [facility] [address] [place] [address], [facility] MCV (RBC) [Entitic vol] 93.2 fL Normal 82.0-98.0 The [facility] Comment on above: Order Comment: No: D o not add to previous draw Performed By: #### 8 [id number] #### [facility] [address] [place] [id number], [facility] Monocytes (Bld) [#/Vol] 1.4 10*3/uL High 0.1-1.0 The [facility] Comment on above: Order Comment: No: D o not add to previous draw Performed By: #### 8 [id number] #### [facility] [address] [place] [address], [facility] MONOS 10.2 % Normal 5.0-12.0 The [facility] Comment on above: Order Comment: No: D o not add to previous draw Performed By: #### 8 [id number] #### [facility] [address] [place] [address], [facility] Neutrophils/100 WBC (Bld) 72.1 % High 40.0-72.0 The [facility] Comment on above: Order Comment: No: D o not add to previous draw Performed By: #### 8 [id number] #### [facility] [address] [place] [address], [facility] Nucleated RBC/100 WBC (Bld) [Ratio] 0 % Normal 0-0 The [facility] Comment on above: Order Comment: No: D o not add to previous draw Performed By: #### 8 [id number] #### [facility] [address] [place] [id number], [facility] PLAT CNT 204 10*3/uL Normal 150-400 The [facility] Comment on above: Order Comment: No: D o not add to previous draw Performed By: #### 8 [id number] #### [facility] [address] [place] [address], [facility] RBC (Bld) [#/Vol] 4.82 10*6/uL Normal 4.20-5.70 The [facility] Comment on above: Order Comment: No: D o not add to previous draw Performed By: #### 8 [id number] #### [facility] [address] [place] [address], [place] WBC (Bld) [#/Vol] 14.17 10*3/uL High 4.00-10.60 The [facility] Comment on above: Order Comment: No: D o not add to previous draw Performed By: #### 8 [id number] #### [facility] [address] [place] [address], [facility] POC GLUCOSE LABon 10-20-2020 Glucose [Mass/Vol] 135 mg/dL High 70-100 The [facility] Comment on above: Performed By: #### 8 [id number] #### [facility] [address] [place] [address], [place] Glucose [Mass/Vol] 179 mg/dL High 70-100 [facility] Comment on above: Performed By: #### 8 [id number] #### [facility] [address] [place] [address], [place] Glucose [Mass/Vol] 213 mg/dL High 70-100 [facility] Comment on above: Performed By: #### 8 [id number] #### [facility] [address] [place] [address], [place] Glucose [Mass/Vol] 185 mg/dL High 70-100 The [facility] Comment on above: Performed By: #### 8 [id number] #### [facility] [address] [place] [address], [place] PROTHROMBIN TIMEon INR Coag (PPP) [Relative time] 1.02 {INR} Normal 0.91-1.16 The [facility] Comment on above: Order Comment: No: D o not add to previous draw Result Comment: [facility] P RECOMMENDED INR FOR WARFARIN THERAPY ------- [...] 1995;108:231S-246S. Performed By: #### 8 [id number] #### [address] PT Coag (PPP) [Time] 13.4 s Normal 12.3-14.8 [facility] [facility] Comment on above: Order Comment: No: D o not add to previous draw Result Comment: ALL RESULTS MUST BE INTERPRETED WITH RESPECT TO BLOOD DRAWING ARTIFACT OR DILUTION ERROR OF ANTICOAGULANT AT THE TIME OF SAMPLING. Performed By: #### [id number] #### [address] CERVICAL SPINE 2 OR 3 [facility] 10-19-2020 CERVICAL SPINE 2 OR 3 [facility] Department of Radiology [address] [place] [id number] Patient Name: RIAN COLEMAN : 1975 [...] obtained. Electronically signed: Mg Ferreira. Transcribed by: [email or web address], User Resident: Electronically Signed by: MG FERREIRA @ 10/19/2020 01:55 PM Normal [facility] Comment on above: Order Comment: C3-7 POSTERIOR CERVICAL DISCECTOMY AND FUSION Operative Reporton Operative Report MR#: [id number] # [facility] Pt. Name: Rian Coleman Room #: 9D Discharge 09/28/2020 Date: Birthdate: 1975 OPERATIVE REPORT DATE OF SURGERY: 10/19/2020 SURGEON: Zen De La Cruz M.D. DIRECTOR OF PHARMACY: Modesta Ferreira and Charles Hardwick M.D. 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 ANESTHESIA: General endotracheal. POSITION: Prone position on the Mariano table in reverse Trendelenburg position. OPERATION: 1. C3-C7 posterior cervical spine decompression (51553, 97403v4). 2. C3-C7 posterior segmental cervical instrumentation using Synapse 3.5 mm system from [employer] (20933). 3. C3-C7 posterior cervical fusion using autograft, crush cancellous allograft (92232, 73213 x3). 4. Application and removal of Garcia Chavez tongs (00260). 6. Use of intraoperative fluoroscopy (34944). 7. Local autograft harvesting and use of crush cancellous allograft (37071, ) 8. Modifier 22 due to medical [...] i (more content not included)... Normal [facility] Operative Report MR#: [id number] I [facility] Pt. Name: Rian Coleman Room #: 6AB [id number] Discharge 09/28/2020 Date: Birthdate: 1975 OPERATIVE REPORT DATE OF SURGERY: 10/19/2020 SURGEON: Zen De La Cruz M.D. DIRECTOR OF PHARMACY: Modesta Ferreira. and Charles Hardwick M.D. 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 ANESTHESIA: General endotracheal. POSITION: Prone position on the Mariano table in reverse Trendelenburg position. OPERATION: 1. C3-C7 posterior cervical spine decompression (21154, 95592j5). 2. C3-C7 posterior segmental cervical instrumentation using Synapse 3.5 mm system from [employer] (31524). 3. C3-C7 posterior cervical fusion using autograft, crush cancellous allograft (53867, 42611 x3). 4. Application and removal of Garcia Chavez tongs (34164). 6. Use of intraoperative fluoroscopy (75404). 7. Local autograft harvesting and use of crush cancellous allograft (60329, ) 8. Modifier 22 due to medical [...] d (more content not included)... Normal [facility] POC GLUCOSE LABon 10-19-2020 Glucose [Mass/Vol] 221 mg/dL High 70-100 [facility] Comment on above: Performed By: #### 8 [id number] #### [facility] [address] [place] [address], [place] Glucose [Mass/Vol] 231 mg/dL High 70-100 [facility] Comment on above: Performed By: #### 8 [id number] #### [facility] [address] [place] [address], [place] Glucose [Mass/Vol] 244 mg/dL High 70-100 [facility] Comment on above: Performed By: #### 8 [id number] #### [facility] [address] [place] [address], [place] Glucose [Mass/Vol] 165 mg/dL High 70-100 [facility] Comment on above: Performed By: #### 8 [id number] #### [facility] [address] [place] [address], [place] TYPE AND SCREENon 10-19-2020 ABO INTERPRETATION O Normal [facility] Comment on above: Performed By: #### 8 [id number] #### [facility] [address] [place] [address], [place] RH INTERPRETATION Positive Normal [facility] Comment on above: Performed By: #### 8 [id number] #### [facility] [address] [place] [address], [place] CERVICAL SPINE 4 OR 5 VIEWSo n 09-28-2020 CERVICAL SPINE 4 OR 5 VIEWS [facility] Department of Radiology [address] [place] [id number] Patient Name: RIAN COLEMAN : 1975 Sex: [...] instability. Electronically signed: MANUEL VU. Transcribed by: [email or web address], User Resident: Electronically Signed by: MANUEL VU @ 09/29/2020 07:17 PM Normal [facility] LUMBAR SPINE 4 OR 5 VWSon LUMBAR SPINE 4 OR 5 S [facility] Department of Radiology [address] [place] [phone] Patient Name: RIAN COLEMAN : 1975 [...] ext Exam: LUMBAR SPINE 4 OR 5 S LUMBAR SPINE 4 OR 5 S 09/28/2020 1:16 PM CLINICAL INDICATIONS: M51.36 Other [...] instability. Electronically signed: MANUEL VU. Transcribed by: [email or web address], User Resident: Electronically Signed by: MANUEL VU @ 09/29/2020 07:14 PM Normal [facility] Comment on above: Order Comment: martell khan, ext CNOVon 09-06-2020 CNOV Office Visit ([facility]) HOLLISRIAN Sanchez ([id number]) 1975 M Date Time Provider Department 09/06/20 3:00 PM ASHLEY MERCADO [facility] During your visit today, we recorded the following information about you: Pulse Blood pressure Weight Height 90/minute 179/93 188.2 kg 1.93 m Ashley Mercado MD 09/06/2020 3:23 PM Sign when Signing Visit SPINE SURGERY OUTPATIENT CONSULT SERVICE DATE: 09/06/2020 PCP: Ed Gonsalez DO REFERRING PROVIDER: Ed Celestin MD [address] [address] Consult requested for an opinion regarding the [...] and mye (more content not included)... Normal [facility] 09-06-2020 [facility] Telephone ([facility]) RIAN COLEMAN ([id number]) 1975 M Date Time Provider Department 09/06/20 ASHLEY MERCADO [facility] During your visit today, we recorded the following information about you: Nadia Carvajal [facility] 09/06/2020 3:22 PM Signed NI PHONE Name [...] with Dr. Mercado Number to return call [phone] Okay to leave a message ? Yes Thank you calling [facility]. You will receive a return call within [...] Belkis Echeverria 09/11/2020 10:23 AM Signed Sent [employer] msg. to Mr. Coleman for more specifics on type of note needed. Awaiting response. Radha Eng 09/13/2020 10:44 AM Signed I have called patient 4 times over the course of a few days. Phone rings once and then goes to busy signal. Not sure if he is having phone problems. I also have sent him a msg. by way of [employer]. I will send letter as well to try and reach him. Radha Eng Allergies As of Date: 09/06/2020 (Not on File) Date Reviewed: 09/06/2020 Reviewed by: Vic Chow) DONNA Castillo - Fully Assessed Reason for Visit: Question [5617] Prescriptions as of 12/12/2020 - amLODIPine (NORVASC) [...] Status:Closed by NADIA COLEMAN on 12/12/20 Normal [facility] Discharge CCD Assessmenton 0 08-23-2020 Discharge CCD Assessment [facility] Patient: RIAN COLEMAN [address] [place] [address] MR#: [id number] DISCHARGE CCD ASSESSMENT : 75 Service Date: 08/23/201714 Discharge CCD Assessment Assessment Patient discharged home and needs to get cardiac clearance Electronically Signed eSign Date and Time Lida Limon 08/23/201715 Ed Celestin MD Normal [facility] GLUCOSE METERon 08-23-2020 Glucose [Mass/Vol] 135 mg/dL High 70-99 [facility] Comment on above: Result Comment: Fast ing GLUCOSE reference range has been updated per (ADA) [place] [employer]'s recommendation. 08/17/2018 Performed By: #### L 500.80957 #### Test performed at: [place] [address] OPERATIVE REPORTon OPERATIVE REPORT NAME: RIAN COLEMAN MR#: [id number] SURGEON: Ed Celestin MD DATE OF SURGERY: [...] we possibly retry the procedure. MD TIM MARTINEZ/MODL/[id number] CC: [facility] [employer] [facility] E/S: Ed Celestin MD 09/20/20 1345 Electronically Signed [facility] PT NAME: RIAN COLEMAN MR#: [id number] [address] [place] [address] ACCT: [id number] : 75 OPERATIVE REPORT Normal [facility] CERV SP W OBL/FLEX/EXT 6 OR >on 08-07-2020 CERV SP W OBL/FLEX/EXT 6 OR > STUDY: CERV SP W OBL/FLEX/EXT 6 OR > ; 08/07/2020 8:23 am INDICATION: PAIN. COMPARISON: None. ACCESSION NUMBER(S): [id number] ORDERING CLINICIAN: Ed Celestin FINDINGS: No fracture [...] the cervical spine without visualized instability. Normal [facility] LUMB SP COMP W FLEX/EXT 6 VW Son 08-07-2020 LUMB SP COMP W FLEX/EXT 6 VWS STUDY: LUMB SP COMP W FLEX/EXT 6 VWS ; 08/07/2020 8:05 am INDICATION: PAIN. COMPARISON: None. ACCESSION NUMBER(S): [id number] ORDERING CLINICIAN: Ed Celestin FINDINGS: No fracture [...] of the lumbar spine without instability. Normal [facility] MR-MRI C-SPINE WO/W CON IMPO RTon 08-02-2020 MR-MRI C-SPINE WO/W CON IMPORT Images were obtained outside of [facility] [id number] CN Normal [facility] MR-MRI L-SPINE WO/W CON IMPO RTon 07-31-2020 MR-MRI L-SPINE WO/W CON IMPORT Images were obtained outside of [facility] [id number] CN Normal [facility] MR-MRI T-SPINE WO/W CON IMPO RTon 07-31-2020 MR-MRI T-SPINE WO/W CON IMPORT Images were obtained outside of [facility] [id number] CN Normal [facility] CR-XR CHEST 1 V IMPORTon CR-XR CHEST 1 V IMPORT Images were obtained outside of [facility] [id number] CN Normal [facility] Vital Signs Date Time Vital Sign Value Performing Clinician Facility 01-04-2024 09:46-0400 Body height 193.04 cm [facility] 01-04-2024 09:46-0400 Body mass index (BMI) [Ratio] 43.9 kg/m2 [facility] 01-04-2024 09:46-0400 Body temperature 97.7 [degF] [facility] 01-04-2024 09:46-0400 Body weight 163.74 kg [facility] 01-04-2024 09:46-0400 Diastolic blood pressure 78 mm[Hg] [facility] 01-04-2024 09:46-0400 Heart rate 89 /min [facility] 01-04-2024 09:46-0400 SaO2% (BldA) [Mass fraction] 94 % [facility] 01-04-2024 09:46-0400 Systolic blood pressure 150 mm[Hg] [facility] 11-25-2023 08:26-0400 Body height 193.04 cm [facility] 11-25-2023 08:26-0400 Body mass index (BMI) [Ratio] 44.9 kg/m2 [facility] 11-25-2023 08:26-0400 Body weight 167.37 kg [facility] 11-06-2021 16:20-0400 Body height 193.04 cm Juan Monterroso Other [employer] [facility] [employer] Other 06-18-2021 15:40-0500 Body height 193.04 cm Juan Monterroso Other [employer] Other 06-18-2021 15:40-0500 Body mass index (BMI) [Ratio] 49.54 kg/m2 Juan Monterroso Other [employer] Other 06-18-2021 15:40-0500 Body temperature 97 [degF] Juan Monterroso Other [employer] Other 06-18-2021 15:40-0500 Body weight 184.62 kg Juan Monterroso Other [employer] Other 06-18-2021 15:40-0500 Diastolic blood pressure 86 mm[Hg] Juan Monterroso Other [employer] Other 06-18-2021 15:40-0500 Respiratory rate 20 /min Juan Monterroso Other [employer] Other 06-18-2021 15:40-0500 SaO2% (BldA) [Mass fraction] 95 % Juan Monterroso Other [employer] Other 06-18-2021 15:40-0500 Systolic blood pressure 134 mm[Hg] Juan Tolentinomarta Other [employer] Other Encounters Encounter Date Encounter Type Care Provider Facility Start: 01-04-2024 End: 01-04-2024 ambulatory [facility] Work Phone: Start: 01-04-2024 End: 01-04-2024 Patient encounter procedure [facility] [place] Work Phone: Start: 12-21-2023 End: 12-21-2023 ambulatory Veronica Solo MD Facility:[facility] Start: 12-16-2023 End: 12-16-2023 ambulatory DO Juan Monterroso Work Phone: [facility] Work Phone: Start: 12-16-2023 End: 12-16-2023 Patient encounter procedure DO Juan Monterroso Work Phone: [facility] Work Phone: Start: 11-25-2023 End: 11-25-2023 ambulatory [facility] Work Phone: Start: 11-25-2023 End: 11-25-2023 Patient encounter procedure [facility] Neuro[facility] Work Phone: Start: 11-10-2023 End: 11-10-2023 ambulatory [facility] Work Phone: Start: 11-10-2023 End: 11-10-2023 Patient encounter procedure [facility] [place] Work Phone: Start: 10-15-2023 End: 10-15-2023 ambulatory [facility] Start: 10-05-2023 End: 10-05-2023 ambulatory [facility] Start: 10-05-2023 End: 10-05-2023 ambulatory Veronica Solo MD Facility:[facility] Start: 10-04-2023 Letter encounter Juan Monterroso DO Work Phone: [facility] Start: 10-01-2023 End: 10-01-2023 ambulatory [facility] Start: 2023 End: 2023 Patient encounter procedure [facility] [place] Work Phone: Start: 02-16-2023 ambulatory Tone Everett acility:[facility] Start: 01-12-2023 Telephone encounter Juan Monterroso [facility] [place] Start: 01-12-2023 End: 01-12-2023 ambulatory [facility] [employer] Other Start: 09-29-2022 Letter encounter Juan Monterroso DO Work Phone: [facility] Start: 08-13-[address] JUAN MONTERROSO Facilit y:[facility] Start: 07-16-2022 End: 07-17-[address] JUAN MONTERROSO Facility:[facility] Start: 07-15-2022 End: 07-16-2022 [facility] [employer] [facility] Start: 07-15-2022 Encounter for genera l adult medical examination without abnormal findings Juan Monterroso [facility] [place] Start: 07-15-2022 Telephone encounter Juan Monterroso [facility] [place] Start: 06-24-2022 Letter encounter Juan Monterroso DO Work Phone: [facility] Start: 04-28-2022 End: 04-28-2022 ambulatory CARRI CAMARILLO Facility:[facility] Start: 04-24-2022 End: 04-24-2022 ambulatory Juan Monterroso Other [employer] Other Start: 04-24-2022 Telephone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
--- NOTE | 2024-01-07 10:46 | MR_ITS ---
The [address] [address] Patient Name: ALPHONSO SHAFER MRN: [id number] date: 1975 Sex: M Assigned Patient Location: MRI Current Patient Location: MRI Accession/Order Number: [id number] Exam Date: 01/07/2024 11:00 Report Date: 01/09/2024 13:01 At the request of: JUAN MONTERROSO Procedure: MR hip RT wo con EXAM: MR hip RT wo con HISTORY: Pain Of Right Hip M25.551 Chronic recurring pain, right hip radiates down the leg. COMPARISON: None. TECHNIQUE: Multiplanar multisequence MRI of the osseous pelvis/right hip was performed without contrast. This included large kxxoe-jy-[id number] coronal STIR, axial T1, axial STIR, axial T2 with small [id number]-[id number]-kkjh imaging of the right hip to include coronal T2 and sagittal T2 imaging. FINDINGS: OSSEOUS STRUCTURES: Prominent facet disease contributing to at least moderate central canal stenosis at L4-L5. Lesser degree of facet disease at L5-S1. No stress reaction or fracture involving the pelvis. Right hip arthroplasty is normally aligned. No hip joint effusion. No osteolysis is seen. No periprosthetic fracture is identified. No pseudomass along the right hip. Moderate to severe marginal spur involving the left hip is noted. Subchondral cystic change along the left acetabulum. Degenerative tear of the anterior superior to posterior superior left acetabulum with paralabral cyst along the posterior superior quadrant measuring 2.6 x 0.6 x 1.6 cm. TENDONS/SOFT TISSUES: Heterotopic ossification is seen along the anterior right hip at the attachment site of the right rectus tendon to the supra-acetabular region. Major tendon origins and insertions about the right hip appear otherwise unremarkable. No bursitis is seen. No ischiofemoral impingement is seen. PELVIS: Slight asymmetric atrophy of the right piriformis muscle. No presacral mass is identified. The visualized intrapelvic soft tissues appear unremarkable. [id number] noninflamed left internal hernia. NERVES: The visualized course of the sciatic, femoral and lateral femoral cutaneous nerves along the right hip appear preserved. MR/MR hip RT wo con IMPRESSION: 1. Moderate central canal stenosis at L4-L5 is multifactorial. 2. No stress reaction or fracture of the pelvis or proximal femurs identified. 3. Right hip arthroplasty without signs of hardware complication. 4. 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 5. Heterotopic ossification at the attachment site of the rectus femoris tendon through the supra-acetabular region presumably related to remote injury. No bursitis. Electronically authenticated by: MG CONNER Date: 01/09/2024 13:01
== END 2024-01-07 10:40 | disposition home or self-care (01) ==
LOC: MRI 10:39
PROVIDERS: PCP Family Medicine; Visit Provider Family Medicine
DX: M25.551 Pain in right hip (principal); Z96.641 Presence of right artificial hip joint
CPT/HCPCS: 73721

== ENCOUNTER 2024-02-01 14:25 | Outpatient (OUT) | payer BC, SELFPAY ==
--- NOTE | 2024-02-01 16:11 | P.CN_ITS ---
Consult Note: HPI Data of Consult Patient: known to practice within the last 3 years Consult date: 02/01/24 Requesting Physician: Veronica Solo MD Primary Care Provider: JUAN MONTERROSO Consult Narrative Reason for consult: right low back pain Narrative: 48yom who presents for assessment. continues to have significant right low back pain. recent imaging was reviewed, which is significant for multilevel stenosis and facet arthropathy. recently saw spine surgeon, who recommended he follow up with his orthopedic surgeon to discuss integrity of his right hip implant. he has completed physical therapy, accupuncture, and massage, with only mild benefit, and continues in a series of provider directed home exercises >6 weeks, without lasting benefit. he uses gabapentin and ibuprofen, as needed. denies adverse med side effects. cc:: CC: Veronica Solo MD Review of Systems ROS Status of ROS 10 or more systems reviewed and unremark able except as noted in history and below Meds Home Medications and Allergies Home Medications ?Medication ?Instructions ?Recorded ?Confirmed ?Type carvedilol 25 mg tablet 25 mg PO BID 09/18/23 12/21/23 History chlorthalidone 25 mg tablet 25 mg PO DAILY 09/18/23 12/21/23 History empagliflozin 10 mg tablet 10 mg PO DAILY 09/18/23 12/21/23 History (Jardiance) losartan 100 mg tablet 100 mg PO DAILY 09/18/23 12/21/23 History oxycodone-acetaminophen 5 mg-325 1 tab PO Q4H PRN pain #10 tabs 09/18/23 12/21/23 Rx mg tablet (Percocet) potassium chloride 20 mEq 20 meq PO .every other day 09/18/23 12/21/23 History tablet,extended release(part/cryst) (Klor-Con M) cholecalciferol (vitamin D3) 1,250 1,250 mcg PO QWEEK 10/01/23 12/21/23 History mcg (50,000 unit) capsule gabapentin 300 mg capsule 300 mg PO TID 10/01/23 12/21/23 History ibuprofen 200 mg tablet 800 mg PO TID-QID PRN pain 10/01/23 10/05/23 History tizanidine 4 mg capsule 4 mg PO TID PRN muscle spasticity 10/01/23 12/21/23 History vitamin B complex 1 tab PO DAILY 10/01/23 12/21/23 History zinc 50 mg tablet 50 mg PO DAILY 10/01/23 12/21/23 History Allergies Allergy/AdvReac Type Severity Reaction Status Date / Time No Known Drug Allergies Allergy Verified 12/21/23 07:30 Exam Narrative Exam Narrative: Psych-alert and oriented x 3. Attentive and appropriate, constitutionally normal, displays normal mood and affect per situation.? There are no obvious deficits in memory, reasoning, or intellect.? Skin-no obvious rashes, bruising, erythema noted to the patient's area of pain. Extremities- extremities are warm with minimal edema and palpable pulses. Lumbar-no significant tenderness to palpation noted in the lumbar spine and paraspinal musculature.? Pain is elicited with extension, and lateral rotation of the lumbar spine. Range of motion is slightly diminished with these motions due to pain. Facet loading maneuvers are positive on the right and do appear to be concordant with the patient's normal complaints of pain.? Coordination remains intact.? Gait remains non-antalgic. Assessment and Plan Assessment and Plan (1) Lumbar spondylosis: Plan 48yom who presents for assessment. failed conservative measures, as noted. imaging reviewed, as noted. given symptoms and imaging, discussed that it would be prudent to attempt right l4-5, l5-s1 medial branch blocks under fluoroscopic guidance with intention of proceeding to radiofrequency ablation. i will have him follow up with his hip and spine surgeon beforehand. he is in agreement. meds reviewed, no changes. follow up after procedure.
== END 2024-02-01 14:26 | disposition home or self-care (01) ==
LOC: PM 14:26
PROVIDERS: PCP Family Medicine; Visit Provider Anesthesiology
DX: M47.816 Spondylosis without myelopathy or radiculopathy, lumbar region (principal)
CPT/HCPCS: G0463

== ENCOUNTER 2024-08-09 10:27 | Outpatient (OUT) | payer OTHER, SELFPAY ==
--- OUTSIDE RECORDS SUMMARY | 2024-08-09 10:40 | XMS_ITS | CCD ---
Author Organization [facility] Care Team Providers Care Senior Speech Pathologist Name Role Phone ZEN DE LA CRUZ Attending Unavailable JUAN MONTERROSO Primary Care Unavailable JUAN MONTERROSO Referring Unavailable ZEN DE LA CRUZ Admitting Unavailable ZEN DE LA CRUZ Surgeon Unavailable OK Procedure Practitioner UnavailJuan Rizvi Unavailable Juan Monterroso DO Primary Care Provider CARRI CAMARILLO Attending Unavailable CARRI CAMARILLO Admitting Unavailable CARRI CAMARILLO Consulting Unavailable KRISS, DR MARTINEZ Primary Care Unavailable CARRI CAMARILLO Attending Unavailable CARRI CAMARILLO Admitting Unavailable KRISS, DR MARTINEZ Primary Care Unavailable ZIEBER, DR QUINTON Russell Consulting Unavailable CARRI CAMARILLO Consulting Unavailable KRISS, DR MARTINEZ Consulting Unavailable KRISS, DR MARTINEZ Attending Unavailable GIRMARTA, DR MARTINEZ Admitting Unavailable GIRMARTA, DR MARTINEZ Primary Care Unavailable GIRMARTA, DR MARTINEZ Primary Care Unavailable ELTAHAWY, DR RAYMUNDO Admitting Unavailable ELTAHAWY, DR RAYMUNDO Attending Unavailable BRADLEY, JUAN Attending Unavailable GIRMARTA, DR MARTINEZ Primary Care Unavailable JUAN HUERTA Admitting Unavailable MISC, DR CARR Consulting Unavailable KRISS, DR MARTINEZ Primary Care Unavailable MISC, DR CARR Attending Unavailable MISC, DR CARR Admitting Unavailable KRISS, DR MARTINEZ Primary Care Unavailable GIRMARTA, DR MARTINEZ Consulting Unavailable KRISS, DR MARTINEZ Attending Unavailable GIRMARTA, DR MARTINEZ Admitting Unavailable GIRMARTA, DR MARTINEZ Attending Unavailable GIRMARTA, DR MARTINEZ Admitting Unavailable GIRMARTA, DR MARTINEZ Primary Care Unavailable GIRMARTA, DR MARTINEZ Primary Care Unavailable GIRMARTA, DR MARTINEZ Attending Unavailable GIRMARTA, DR MARTINEZ Admitting Unavailable LEYLA, ASH Consulting Unavailable LEYLA, ASH Attending Unavailable KRISS, DR MARTINEZ Primary Care Unavailable LEYLA, ASH Admitting Unavailable MISC, DR CARR Consulting Unavailable GIRVIN, DR MARTINEZ Primary Care Unavailable MISC, DR CARR Admitting Unavailable MISC, DR CARR Attending Unavailable RABIA, CARRI Admitting Unavailable RABIA, CARRI Consulting Unavailable RABIA, CARRI Attending Unavailable GIRVIN, DR MARTINEZ Primary Care Unavailable ELTAHAWY, DR RAYMUNDO Consulting Unavailable ELTAHAWY, DR RAYMUNDO Attending Unavailable ELTAHAWY, DR RAYMUNDO Admitting Unavailable GIRVIN, DR MARTINEZ Primary Care Unavailable GIRVIN, DR MARTINEZ Primary Care Unavailable PIPO, CHANDRA Consulting Unavailable PPIO, CHANDRA Attending Unavailable PIPO, CHANDRA Admitting Unavailable SCHNEBLE ZOEY Consulting Unavailable GIRMARTA, DR MARTINEZ Primary Care Unavailable MISC, DR CARR Consulting Unavailable MISC, DR CARR Attending Unavailable MISC, DR CARR Admitting Unavailable Girvin Juan GARCIA Primary Care Provider DO Juan Monterroso Primary Care Provider MD Adriel Rivas II Attending Provider Tone Lockhart Attending Unavailab Toen Tabares Admitting Unavailab Juan Sinha Primary Care Unavailable ZEN DE LA CRUZ Attending Unavailable MONIQUE DE LA CRUZSEIN Attending Unavailable MONIQUE DE LA CRUZSEIN Referring Unavailable LUCINA DE LA CRUZIN Attending Unavailable Germania JIMENEZ, Veronica Rodriguez Attending Unavailable Germania JIMENEZ, Veronica Rodriguez Attending Unavailable Germania JIMENEZ, Veronica Rodriguez Attending Unavailable ELIEL MONTALVO Attending Unavailable ELIEL MONTALVO Referring Unavailable Unavailable Primary Care Provider Unavailabl e Medications Current Medications Medication Drug Class(es) Dates Sig (Normalized) Sig (Original) atenolol 25 mg oral tablet (3 sources) beta-Adrenergic Ciara Start: 09-12-2010 atenolol (TENORMIN) 25 MG tablet Take 25 mg by mouth. 0 09/12/2010 Active atorvastatin 80 mg oral tablet (9 sources) HMG-CoA Reductase Inhibitor Start: 2023 take 1 tablet by mouth in the morning atorvastatin (LIPITOR) 80 mg tablet Take 1 tablet (80 mg total) by mouth in the morning. 2023 Active take 1 tablet by nj th every twenty-four hours Atorvastatin Calcium 80 MG 1 tablet Oral ly Once a day Active bisacodyl 10 mg rectal suppository (3 sources) Stimulant Laxative Start: 07-15-2018 bisacodyl (DULCOLAX) 10 MG suppository Insert 1 Suppository in the rectum daily as needed for Constipation. 1 Suppository 0 07/15/2018 Active carvedilol 25 mg oral tablet (13 sources) alpha-Adrenergic Ciara, beta-Adrenergic Ciara Start: 2023 [...] food Orally Twice a day Oct, Active take 2 tablets by mo ut in the morning, then take 2 tablets by mouth at mealtime carvediloL (COREG) 12.5 mg tablet Take 2 tablets (25 mg total) by mouth in the morning and 2 tablets (25 mg total) in the evening. Take with meals. Active cephalexin 500 mg oral capsule (3 sources) Cephalosporin Antibacterial Start: 07-21-2018 take 1 capsule by mouth every six hours cephALEXin (KEFLEX) 500 MG capsule TAKE ONE CAPSULE BY MOUTH EVERY 6 HOURS 0 07/21/2018 Active chlorthalidone 25 mg oral tablet (20 sources) Thiazide-like Diuretic Start: 2023 End: 2023 take 1 tablet by mouth once daily chlorthalidone (HYGROTON) 25 mg tablet Take 1 tablet (25 mg total) by mouth daily. 2023 Active take 1 tablet by mouth once Chlo rthalidone 25 MG TAKE 1 TABLET BY MOUTH EVERY DAY*REPLACING HYDROCHLOROTHIAZIDE* Oral Active cholecalciferol 0.125 mg oral tablet (8 sources) Vitamin D Start: 07-12-2020 take 1 tablet by mouth once daily Cholecalciferol (Vitamin D3) (Vitamin D3) 125 mcg (5,000 unit) Tablet Active 125 MCG PO Daily July 12, 2020 1:00am take 1 capsule by mo [facility] in the morning cholecalciferol, vitamin D3, 2,000 units capsule Take 1 capsule (2,000 Units total) by mouth in the morning. Active docusate sodium 100 mg oral capsule (3 sources) Start: 07-15-2018 take 1 capsule by mouth twice daily docusate sodium (COLACE) 100 MG capsule Take 1 Capsule by mouth 2 times daily. 60 Capsule 3 07/15/2018 Active empagliflozin 10 mg oral tablet (10 sources) Sodium-Glucose Cotransporter 2 Inhibitor Start: 2023 End: 01-04-2024 take 1 tablet by mouth in the morning empagliflozin (JARDIANCE) 10 mg tablet tablet Take 1 tablet (10 mg total) by mouth in the morning. 01/04/2024 Active Start: 12-16-2022 take 1 tablet by [facility] every twenty-four hours Jardiance 10 MG 1 [...] 09/12/2010 Active ibuprofen 800 mg oral tablet (18 sources) Nonsteroidal Anti-inflammatory Drug Start: 01-04-2024 ibuprofen (MOTRIN) 800 mg tablet Take 1 tablet (800 mg total) by mouth as needed for pain. 01/04/2024 Active Start: 01-04-2024 take 800 mg by mouth at mealti sd Ibuprofen Active 800 MG PO EVERY 8-12 HOURS 60 January 04, 2024 12:00am with food Start: [...] Active icosapent ethyl 1000 mg oral capsule (9 sources) Start: 2023 take 2 g by mouth twice daily at mealtime Icosapent Ethyl Active 2 GM PO .bid with meals 2023 12:00am Start: 03-20-2023 take 1 capsule by mo uth at mealtime icosapent ethyL (VASCEPA) 1 gram capsule Take 1 capsule (1 g total) by mouth in the morning and 1 capsule (1 g total) in the evening. Take with meals. 03/20/2023 Active take 2 capsules by m outh every [...] Active losartan potassium 100 mg oral tablet (18 sources) Angiotensin 2 Receptor Ciara Start: 07-16-2018 take 100 mg by mouth once daily Losartan Active 100 MG PO Daily July 12, 2020 1:00am meloxicam 7.5 mg oral tablet (15 sources) Nonsteroidal Anti-inflammatory Drug Start: 07-20-2023 take 2 tablets by mouth once daily as needed for pain meloxicam (MOBIC) 7.5 mg tablet Take 2 tablets (15 mg total) by mouth daily as needed for pain. 07/20/2023 Active Start: 07-20-2023 End: 07-20-2023 take 1 tablet by mouth once daily at mealtime Meloxicam Active 15 MG PO .QD with food 90 July 20, 2023 1:55pm On Hold: pt [...] chloride 20 meq extended release oral tablet (10 sources) Start: 2023 End: 01-04-2024 take 1 tablet by mouth in the morning potassium chloride (KLOR-CON M 20) 20 MEQ CR tablet Take 1 tablet (20 mEq total) by mouth in the morning. 01/04/2024 Active Start: 01-12-2023 take 1 tablet by nj th every other day at mealtime Potassium Chloride [place] ER 20 MEQ 1 tablet with food Orally qod for 90 days Dec, Active SITagliptin (4 sources) Dipeptidyl Peptidase 4 Inhibitor Januvia Active Testosterone (12 sources) Androgen Testosterone pil l Active Testosterone inj ection every other week Active tiZANidine 4 mg oral tablet (8 sources) Central alpha-2 Adrenergic Agonist Start: 01-04-2024 take 1 tablet by mouth every six hours as needed tiZANidine (ZANAFLEX) 4 mg tablet Take 1 tablet (4 mg total) by mouth every 6 (six) hours as needed for muscle spasms. 01/04/2024 Active Start: 11-10-2023 take 1-2 tablets by mouth [...] 30 mg oral tablet (2 sources) Uncompetitive K-ysnaja-B-aspartate Receptor Antagonist, Sigma-1 Agonist Start: 05-13-2021 Start: 05-13-2021 take 1 tablet by nj every six hours as needed [place] DMT 30-30 MG 1 tablet Orally q6 hrs prn Apr, Not-Taking gabapentin 300 mg oral capsule (14 sources) Anti-epileptic Agent Start: 11-25-2023 End: 01-04-2024 Gabapentin Discontinued MG PO November 25, 2023 12:00am January 04, 2024 10:31am Start: 10-23-2023 End: 01-04-2024 take 600 mg by mouth three times daily Gabapentin Active 600 MG PO Three times daily 90 January 04, 2024 11:15am hydroCHLOROthiazide 25 mg [...] Classification Problem Date Documented Da te Episodic/Chronic Acute cerebrovascular disease (4 sources) Subdural hematoma; 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: [Intracranial subdural hematoma] Onset: 9 01-27-2024 Chronic Diabetes mellitus without complication (9 sources) Type 2 diabetes mellitus without complications; 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: [Type 2 diabetes mellitus] Onset: 2 Chronic Diseases of white blood cells (7 sources) Increased blood leukocyte number; 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: [Elevated white blood cell count, unspecified] Chronic Disorders of lipid metabolism (17 sources) Hyperlipidemia; 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: [Hyperlipidemia, unspecified] Onset: 2 Resolved: 2 Chronic Essential hypertension (20 sources) Hypertensive disorder; 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: [Essential (primary) hypertension] Onset: 1 Resolved: 2 Chronic Fluid and electrolyte disorders (6 sources) Hypokalemia; 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: [HYPOKALEMIA] Onset: 2 Resolved: 2 Episodic Intracranial injury (7 sources) Unspecified intracranial injury with loss of consciousness of unspecified duration, initial encounter; 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: [History of traumatic brain injury] Onset: 2 Resolved: 2 Episodic Joint disorders and dislocations; trauma-related (5 sources) Chondromalacia patellae, left knee; 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: [Chondromalacia of left patella] Onset: 2 01-27-2024 Chronic Malaise and fatigue (1 source) Other fatigue; 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: [OTHER FATIGUE] Onset: 3 Episodic Nutritional deficiencies (14 sources) Vitamin D deficiency; 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: [Vitamin D deficiency, unspecified] Onset: 2 Resolved: 2 Chronic Other aftercare (1 source) correction (current) use of insulin; 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: [INSTRUCTOR CREELER CURRENT USE OF INSULIN] Onset: 3 Episodic Other connective tissue disease (14 sources) History of repair of hip joint; 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: [Presence of right artificial hip joint] Onset: 4 09-02-2023 Chronic Other connective tissue disease (1 source) Presence of right artificial hip joint; 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: [Presence of right artificial hip joint] Onset: 4 Chronic Other endocrine disorders (7 sources) Decreased testosterone level ; 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: [Testicular hypofunction] Chronic Other endocrine disorders (7 sources) Hypogonadotropic hypogonadism; 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: [Hypopituitarism] Chronic Other endocrine disorders (2 sources) Hypopituitarism; 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: [HYPOPITUITARISM] Onset: 2 Resolved: 2 Chronic Other endocrine disorders (2 sources) Testicular hypofunction; 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: [TESTICULAR HYPOFUNCTION] Onset: 2 Resolved: 2 Chronic Other endocrine disorders (4 sources) Male hypogonadism; 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: [Testicular hypofunction] Onset: 2 01-27-2024 Chronic Other gastrointestinal disorders (4 sources) Constipation, unspecified; 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: [Constipation, unspecified] 2023 Episodic Other injuries and conditions due to external causes (6 sources) Finding with explicit context; 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: [Personal history of other (healed) physical injury and trauma] 07-12-2020 Episodic Other nervous system disorders (10 sources) Guillain-[place] syndrome; 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: [Guillain-[place] syndrome] Onset: 4 07-12-2020 Chronic Other nervous system disorders (7 sources) Paresthesia; 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: [Paresthesia of skin] Episodic Other non-traumatic joint disorders (6 sources) Hip pain; 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: [Pain in right hip] 2023 Episodic Other non-traumatic joint disorders (6 sources) Pain in right hip; 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: [Pain in joint, pelvic region and thigh] 2023 Episodic Other non-traumatic joint disorders (2 sources) Pain in unspecified hip; 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: [Pain in unspecified hip] Onset: 4 Episodic Other nutritional; endocrine; and metabolic disorders (17 sources) Obesity; 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: [Obesity, unspecified] Onset: 4 07-12-2020 Chronic Other nutritional; endocrine; and metabolic disorders (4 sources) Metabolic syndrome X; 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: [Metabolic syndrome X] Onset: 2 01-27-2024 Chronic Other nutritional; endocrine; and metabolic disorders (4 sources) Morbid obesity; 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: [Morbid (severe) obesity due to excess calories] Onset: 2 01-27-2024 Chronic Residual codes; unclassified (17 sources) Obstructive sleep apnea syndrome; 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: [Obstructive sleep apnea (adult) (pediatric)] Onset: 4 07-12-2020 Chronic Residual codes; unclassified (7 sources) Amnesia; 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: [Other amnesia] Episodic Residual codes; unclassified (6 sources) History of vaccination; 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: [Personal history of other drug therapy] 07-12-2020 Episodic Residual codes; unclassified (1 source) Pain Onset: 4 Episodic Spondylosis; intervertebral disc disorders; other back problems (12 sources) Thoracic myelopathy; 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: [Other spondylosis with myelopathy, thoracic region] Onset: 4 07-13-2020 Chronic Spondylosis; intervertebral disc disorders; other back problems (20 sources) Cervicalgia; 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: [Nerve root disorder] Onset: 8 Resolved: 2 Episodic Unclassified (4 sources) CONTACT W/AND (SUSP) EXPOS COVID-19; 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: [CONTACT W/AND (SUSP) EXPOS COVID-19] Onset: 2 Viral infection (2 sources) COVID-19; 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: [COVID-19] Onset: 2 Resolved: 2 Past or Other Problems Problem Classification Problem Date Documented Da te Episodic/Chronic Cardiac dysrhythmias (4 sources) Palpitations; 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: [PALPITATIONS] Onset: 02-18-2022 Episodic Complication of device; implant or graft (2 sources) Pain due to hip joint prosthesis; 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: [Pain due to internal orthopedic prosthetic devices, implants and grafts, initial encounter] 02-04-2024 Episodic Diabetes mellitus without complication (16 sources) Hyperglycemia, unspecified; 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: [Prediabetes] Onset: 06-18-2021 Resolved: 11-06-2021 Episodic Genitourinary symptoms and ill-defined conditions (1 source) Nocturia Onset: 06-18-2021 Resolved: 06-18-2021 Episodic Joint disorders and dislocations; trauma-related (5 sources) Other tear of medial meniscus, current injury, left knee, initial encounter; 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: [Tear of medial meniscus of knee] Onset: 01-15-2022 01-27-2024 Episodic Other aftercare (2 sources) Other terminal system operator (current) drug therapy Onset: 06-18-2021 Resolved: 11-06-2021 [...] IN RIGHT FOOT] Onset: 11-11-2021 Episodic Other gastrointestinal disorders (10 sources) Constipation; 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: [Constipation, unspecified] Onset: 01-27-2024 2023 Episodic Other nervous system disorders (10 sources) Ataxia; 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: [Ataxia, unspecified] Onset: 01-27-2024 07-12-2020 Episodic Other non-traumatic joint disorders (4 sources) Pain in left knee; 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: [PAIN IN LEFT KNEE] Onset: 01-10-2022 Episodic Other non-traumatic joint disorders (1 source) Effusion, left knee; 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: [EFFUSION LEFT KNEE] Onset: 01-15-2022 Episodic Other non-traumatic joint disorders (1 source) Osteophyte, left knee; 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: [OSTEOPHYTE LEFT KNEE] Onset: 01-15-2022 Episodic Other non-traumatic joint disorders (4 sources) Pain in right hip joint; 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: [Pain in right hip] Onset: 01-27-2024 01-27-2024 Episodic Other nutritional; endocrine; and metabolic disorders (1 source) Abnormal weight gain Onset: 06-18-2021 Resolved: 06-18-2021 Episodic Other nutritional; endocrine; and metabolic disorders (1 source) Abnormal weight loss Onset: 11-06-2021 Resolved: 11-06-2021 Episodic Other screening for suspected conditions (not mental disorders or infectious disease) (1 source) Encounter for screening for malignant neoplasm of prostate Onset: 06-18-2021 Resolved: 06-18-2021 Episodic Sprains and strains (8 sources) Rupture of quadriceps tendon; 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: [Strain of right quadriceps muscle, fascia and tendon, initial encounter] Onset: 07-13-2018 07-15-2018 Episodic Unclassified (1 source) Chronic cough R05.3 Onset: 06-18-2021 Resolved: 06-18-2021 Unclassified (1 source) CONTACT W/AND (SUSP) EXPOS COVID-19; 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: [CONTACT W/AND (SUSP) EXPOS COVID-19] Onset: 04-28-2022 Results Test Name Value Interpretation Reference Range Facility XR HIP RT 2-3 VIEWS W OR WO PELVISon 02-07-2024 XR HIP RT 2-3 VIEWS W OR WO PELVIS XR HIP RT 2-3 VIEWS W OR WO PELVIS CLINICAL INFORMATION: History of right hip replacement TECHNIQUE: XR HIP RT 2-3 VIEWS W OR WO PELVIS 3 views right hip were obtained. Patient status post total hip arthroplasty. Hardware is intact. Alignment appears anatomic. Dystrophic appearing calcifications noted. IMPRESSION: Satisfactory postoperative hip. Finalized by Jeffery Gaston MD on 02/07/2024 1:[address] [facility] Follow-Upon 01-14-2024 Follow-Up [id number] Rian Coleman 1975 M Date Provider Department Center 01/14/2024 [facility]EN [facility] Family History Problem Relation Age of Onset Diabetes Mother Hypertension Mother Heart attack Mother's Sister Heart attack Mother's Brother Heart attack Maternal Grandfather Family Status - Relation Status Age at Mother Mother's Sister Mother's Brother Maternal Grandfather Level of Service:83852 [place] OFFICE/OUTPATIENT ESTABLISHED LOW MDM 20 MIN Reason for Visit and Comments: Follow-up [[id number]] Normal [facility] 36on 01-11-2024 36 Patient left vm stating his PCP had an MRI done and he got a 2nd opinoin from another spine surgeon, and it showed something abnormal on the cup of the hip replacement . He is wondering if he needs to see a hip specialist. Please call patient to schedule appt to follow up with Dr. De La Cruz to discuss next steps. He will need to bring disc with MRI to appointment. [facility] 3611-19-2023 36 Paperwork was just signed yesterday. Will be faxed and scanned into media today. Patient notified and verbalized understanding. [facility] 36on 11-18-2023 36 Patient is calling about his disability paperwork. He would like confirmation that they were sent out. Please call patient # [phone]. [facility] 36on 11-10-2023 36 Spoke to patient, advised I have paperwork but it is pending signature from Dr. De La Cruz. He will not return until next week. I will fax everything over once complete. Patient verbalized understanding. [facility] 36 Patient called with concerns that his work never received from 10/19-11/15. Patient is requesting that paperwork being done. Patient states that he sent a paper for his short term disability that has not been submitted also. (It was an attachment to email) Please call patient Good # [phone]. [facility] 36on 10-29-2023 36 Spoke to patient - advised of Dr. De La Cruz's recommendation. He requested intermittent leave, which I advised we cannot do. If he needs further time off he will need to speak to his PCP. He verbalized understanding. He will send paperwork to me on [employer]. [facility] [address] De La Cruz 2 more weeks and that is it, he will have to follow up with PCP for FMLA after that. [facility] 36 Patients 2 week work release is over, and patient would like it extended, and patient has paperwork to be emailed [facility] Telephoneon 10-29-2023 Telephone [id number] Rian Coleman 1975 M Date Provider Department Center 10/29/2023 [id number] Family History Problem Relation Age of Onset Diabetes Mother Hypertension Mother Heart attack Mother's Sister Heart attack Mother's Brother Heart attack Maternal Grandfather Family Status - Relation Status Age at Mother Mother's Sister Mother's Brother Maternal Grandfather [facility] Follow-Upon 10-15-2023 Follow-Up [id number] Rian Coleman 1975 M Date Provider Department [place] 10/15/2023 [facility] Family History Problem Relation Age of Onset Diabetes Mother Hypertension Mother Heart attack Mother's Sister Heart attack Mother's Brother Heart attack Maternal Grandfather Family Status - Relation Status Age at Mother Mother's Sister Mother's Brother Maternal Grandfather Level of Service:[id number] [place] OFFICE/OUTPATIENT ESTABLISHED LOW MDM 20 MIN [facility] 10-08-2023 36 Paperwork faxed and scanned into media. [facility] 10-07-2023 36 Paperwork signed, will fax and scan in after clinic. [facility] 10-05-2023 36 FMLA received and completed. Pending signature from Dr. De La Cruz. [facility] 10-01-2023 36 Confirmed PT order with Dr. De La Cruz. Ordered and faxed to number provided. [facility] 36 Shan at [facility] requesting patients PT order can be faxed to [id number] [facility] Follow-Upon 10-01-2023 Follow-Up [id number] Rian Coleman 1975 Date Provider Department [place] 10/01/2023 [facility] Family History Problem Relation Age of Onset Diabetes Mother Hypertension Mother Heart attack Mother's Sister Heart attack Mother's Brother Heart attack Maternal Grandfather Family Status - Relation Status Age at Mother Mother's Sister Mother's Brother Maternal Grandfather Level of Service:[id number] [place] OFFICE/OUTPATIENT ESTABLISHED MOD MDM 30 MIN [facility] 09-30-2023 36 Patient states he is completely helpless and has been doing nothing but laying in bed. He cannot go to the restroom, he cannot get out of bed, he cannot do anything. I advised that Dr. De La Cruz doesn't typically do telemed visits - and in [place] he does not have the capability to [...] I have never personally been to the [place] office, so I am not sure what [...] he would have to be transferred to [facility] because this is the only MRI that [...] asked if there was anyone at the [place] location that he could talk to to see if they had a stretcher he could use for the appointment. I advised I am unaware, but provided their phone number for him. I advised him to let me know if the appointment tomorrow will work or not, so we can cancel it if necessary. He verbalized understanding. [facility] 36 Dr. De La Cruz does not do telemed visits. He will have to be seen face to face. Will call patient when available. [facility] 36 Patient has questions regarding tomorrows visit Wanting to know if he can be scheduled for a telemedicine visit as he will have a difficult time making it to the office Please give a call back [facility] 36on 2023 36 Patient advised we cannot see anything from [place] unless he brings us a CD. He states he wants Dr. De La Cruz to look at the report. I advised I have not received anything from [facility] but will keep an eye out for it. He verbalized understanding. [facility] 36 Patient called and would like to know if can view his MRI results done at [facility] on 09/22/23 of lumbar spine, news writer directed [facility] and request MRI images to bring on a disc to his appointment, patient then wanted to know if would be able to call [facility] and see results of MRI and discuss results prior to appointment. [facility] 36on 09-17-2023 36 Spoke to patient. Advised [...] the restroom. I offered an appointment in [place] instead, since that is closer to where he lives, and I can get him in a lot sooner in [place] than I can in [place] since the first opening is in November. [...] if he could just go to the [facility] ED in his hometown to have the [...] to an appointment either here or in [place] to go over the results with Dr. De La Cruz. He verbalized understanding and states this is a good option. I offered again to get him an appointment so there is at least something on the books and he is not pushed out even further. He opted to schedule an appointment in [place] instead of [place]. He will discuss getting the MRI ordered with his PCP, and if they are not willing he will talk to Dr. De La Cruz at the appointment on 09/30 about ordering the MRI. Patient is agreeable to plan. [facility] 36 Patients requesting an MRI and a sooner appointment. He said he knows the Dr and the dr will just do it. I informed him hes a new patient so he does needs seen at which he said no the dr will just order the mri and call him [facility] TESTOSTERONE, FREE,DIRECT, T Jazlyn 07-22-2022 Free Testosterone(Direct) 11.4 pg/mL Normal 6.8-21.5 [facility] Comment on above: Result Comment: Perf ormed at: BN Performed By: #### V ITAD #### [facility] [address] [place] [address] Dr. Zurdo Gil Testosterone [Mass/Vol] 373 ng/dL Normal 264-916 [facility] Comment on above: Result Comment: Adul t male reference interval is based on a population of healthy nonobese males (BMI <30) between 19 and 39 years old. Elen, et.al. JCEM 2017,102;0902-0060. PMID: [id number]. Performed at: CB Performed By: #### V ITAD #### [facility] [address] [place] [address] Dr. Zurdo Gil UDQKCED-QVFH-MXMUYH-FACTOR 1 on 07-17-2022 Insulin-Like Growth Factor I 103 ng/mL Normal 81-263 [facility] Comment on above: Performed By: #### V ITAD #### [facility] [address] [place] [address] Dr. Zurdo Gil ESTRADIOLon 07-16-2022 Estradiol 41.2 pg/mL Normal 7.6-42.6 [facility] Comment on above: Result Comment: Roch e ECLIA methodology Performed By: #### V ITAD #### [facility] [address] [place] [address] Dr. Zurdo Gil PROF CHEM 8 (BAS METB)on Anion gap [Moles/Vol] 13.0 mmol/L Normal [facility] Comment on above: Performed By: #### C VDAGA #### [facility] [address] [place] [address] Dr. Zurdo Gil Calcium [Mass/Vol] 9.3 mg/dL Normal 8.5-10.1 [facility] Comment on above: Performed By: #### C VDAGA #### [facility] [address] [place] [address] Dr. Zurdo Gil Chloride [Moles/Vol] 97 mmol/L Critically low 98-107 [facility] Comment on above: Performed By: #### C VDAGA #### [facility] [address] [place] [address] Dr. Zurdo Gil CO2 [Moles/Vol] 27.4 mmol/L Normal 21.0-32.0 [facility] Comment on above: Performed By: #### C VDAGA #### [facility] [address] [place] [address] Dr. Zurdo Gil Creatinine [Mass/Vol] 1.06 mg/dL Normal 0.70-1.30 [facility] Comment on above: Performed By: #### C VDAGA #### [facility] [address] [address] [address] Zurdo Gil EGFR-AF SALVADOREAN >60 Normal >=60 [facility] Comment on above: Performed By: #### C VDAGA #### [facility] [address] [place] [address] Dr. Zurdo Gil EGFR-NON AF SALVADOREAN >60 Normal >=60 [facility] Comment on above: Performed By: #### C VDAGA #### [facility] [address] [place] [address] Dr. Zurdo Gil Glucose [Mass/Vol] 207 mg/dL Critically high 74-106 [facility] Comment on above: Performed By: #### C VDAGA #### [facility] [address] [place] [address] Dr. Zurdo Gil Potassium [Moles/Vol] 3.4 mmol/L Critically low 3.5-5.1 [facility] Comment on above: Performed By: #### C VDAGA #### [facility] [address] [place] [address] Dr. Zurdo Gil Sodium [Moles/Vol] 134 mmol/L Critically low 136-145 [facility] Comment on above: Performed By: #### C VDAGA #### [facility] [address] [place] [address] Dr. Zurdo Gil Urea nitrogen [Mass/Vol] 15.0 mg/dL Normal 7.0-18.0 [facility] Comment on above: Performed By: #### C VDAGA #### [facility] [address] [place] [address] Dr. Zurdo Gli Urea nitrogen/Creatinine [Mass ratio] 14.2 mg/mg Normal [facility] Comment on above: Performed By: #### C VDAGA #### [facility] [address] [place] [address] Dr. Zurdo Gil CBC AUTO DIFFon 07-15-2022 BASO # 0.0 103/ul Normal 0.0-0.1 [facility] Comment on above: Performed By: #### C BC #### [facility] [address] [place] [address] Dr. Zurdo Gil Basophils/100 WBC (Bld) 0.3 % Normal 0.2-2.0 [facility] Comment on above: Performed By: #### C BC #### [facility] [address] [place] [address] Dr. Zurdo Gil EO # 0.2 103/ul Normal 0.0-0.7 [facility] Comment on above: Performed By: #### C BC #### [facility] [address] [place] [address] Dr. Zurdo Gil Eosinophils/100 WBC (Bld) 2.5 % Normal 0.9-7.0 [facility] Comment on above: Performed By: #### C BC #### [facility] [address] [place] [address] Dr. Zurdo Gil Erythrocyte distribution width (RBC) [Ratio] 12.0 % Normal 11.0-15.0 [facility] Comment on above: Performed By: #### C BC #### [facility] [address] [place] [address] Dr. Zurdo Gil Hematocrit (Bld) [Volume fraction] 47.5 % Normal 42.0-54.0 [facility] Comment on above: Performed By: #### C BC #### [facility] [address] [place] [address] Dr. Zurdo Gil Hemoglobin (Bld) [Mass/Vol] 17.6 g/dL Normal 14.0-18.0 [facility] Comment on above: Performed By: #### C BC #### [facility] [address] [place] [address] Dr. Zurdo Gil IG # 0.04 10e3/ul Critically high 0.00-0.03 [facility] Comment on above: Performed By: #### C BC #### [facility] [address] [place] [address] Dr. Zurdo Gil IG % 0.4 % Normal 0.0-0.5 [facility] Comment on above: Performed By: #### C BC #### [facility] [address] [place] [address] Dr. Zurdo Gil LYMPH # 2.7 103/ul Normal 1.2-3.8 [facility] Comment on above: Performed By: #### C BC #### [facility] [address] [place] [address] Dr. Zurdo Gil Lymphocytes/100 WBC (Bld) 27.5 % Normal 20.5-60.0 [facility] Comment on above: Performed By: #### C BC #### [facility] [address] [place] [address] Dr. Zurdo Gil MANUAL DIFF REQ NO Normal [facility] Comment on above: Performed By: #### C BC #### [facility] [address] [place] [address] Dr. Zurdo Gil MCH (RBC) [Entitic mass] 32.3 pg Normal 25.9-34.0 [facility] Comment on above: Performed By: #### C BC #### [facility] [address] [place] [address] Dr. Zurdo Gil MCHC (RBC) [Mass/Vol] 37.1 g/dL Critically high 29.9-35.2 [facility] Comment on above: Performed By: #### C BC #### [facility] [address] [place] [address] Dr. Zurdo Gil MCV (RBC) [Entitic vol] 87.2 fL Normal 80.0-94.0 [facility] Comment on above: Performed By: #### C BC #### [facility] [address] [place] [address] Dr. Zurdo Gil MONO # 0.8 103/ul Normal 0.3-0.8 [facility] Comment on above: Performed By: #### C BC #### [facility] [address] [address] [address] Zurdo Gil Monocytes/100 WBC (Bld) 8.0 % Normal 1.7-12.0 [facility] Comment on above: Performed By: #### C BC #### [facility] [address] [place] [address] Dr. Zurdo Gil NEUT # 5.9 103/ul Normal 1.4-6.5 [facility] Comment on above: Performed By: #### C BC #### [facility] [address] [place] [address] Dr. Zurdo Gil Neutrophils/100 WBC (Bld) 61.3 % Normal 43.0-75.0 [facility] Comment on above: Performed By: #### C BC #### [facility] [address] [place] [address] Dr. Zurdo Gil Platelet mean volume (Bld) [Entitic vol] 8.7 fL Critically low 9.5-13.5 [facility] Comment on above: Performed By: #### C BC #### [facility] [address] [place] [address] Dr. Zurdo Gil PLT 185 103/ul Normal 150-450 [facility] Comment on above: Performed By: #### C BC #### [facility] [address] [place] [address] Dr. Zurdo Gil RBC 5.45 106/ul Normal 4.70-6.10 [facility] Comment on above: Performed By: #### C BC #### [facility] [address] [place] [address] Dr. Zurdo Gil WBC 9.7 103/ul Normal 4.0-11.0 [facility] Comment on above: Performed By: #### C BC #### [facility] [address] [place] [address] Dr. Zurdo Gil FREE T3on 07-15-2022 FREE T3 2.52 pg/mlL Normal 2.18-3.98 [facility] Comment on above: Performed By: #### V ITAD #### [facility] [address] [address] [address] Zurdo Gil FREE T4on 07-15-2022 Free T4 [Mass/Vol] 1.02 ng/dL Normal 0.76-1.46 [facility] Comment on above: Performed By: #### F T4, VITB12, VITAD #### [facility] [address] [address] [address] Zurdo Gil GLYCOHEMOGLOBIN A1Con 2022 ADA RECOMMENDATION SEE BELOW Normal [facility] Comment on above: Result Comment: ADA RECOMMENDED LIMIT 4.0 - 6.0 ADA THERAPEUTIC TARGET < 7.0 ACTION SUGGESTED > 7.0 Performed By: #### A 1C #### [facility] [address] [place] [address] Dr. Zurdo Gil Glucose [Mass/Vol] 134 mg/dL Normal [facility] Comment on above: Performed By: #### A 1C #### [facility] [address] [place] [address] Dr. Zurdo Gil HbA1c (Bld) [Mass fraction] 6.3 % Critically high 4.5-6.2 [facility] Comment on above: Performed By: #### A 1C #### [facility] [address] [place] [address] Dr. Zurdo Gil LIPID PROFILEon 07-15-2022 CHOL-HDL RATIO NORM SEE BELOW Normal [facility] Comment on above: Result Comment: 3.3 - 4.4 LOW RISK 4.4 - 7.1 AVERAGE RISK 7.1 - 11.0 MODERATE RISK >11.0 HIGH RISK Performed By: #### V ITAD #### [facility] [address] [address] [address] Zurdo Gil Cholesterol [Mass/Vol] 231 mg/dL Critically high <=200 [facility] Comment on above: Performed By: #### V ITAD #### [facility] [address] [address] [address] Zurdo Gil Cholesterol in HDL [Mass/Vol] 41 mg/dL Normal 40-60 [facility] Comment on above: Performed By: #### V ITAD #### [facility] [address] [address] [address] Zurdo Gil Cholesterol in LDL [Mass/Vol] 130.6 mg/dL Normal [facility] Comment on above: Performed By: #### V ITAD #### [facility] [address] [address] [address] Zurdo Gil Cholesterol.total/Ch olesterol in HDL [Mass ratio] 5.6 {ratio} Normal [facility] Comment on above: Performed By: #### V ITAD #### [facility] [address] [address] [address] Zurdo Gil HDL NORMAL > or = 60 mg/dl - LOW CARDIOVASCULAR RISK <40 mg/dl - HIGH CARDIOVASCULAR RISK Normal [facility] Comment on above: Performed By: #### V ITAD #### [facility] [address] [address] [address] Zurdo Gil LDL CALC NORMAL SEE BELOW Normal [facility] Comment on above: Result Comment: <100 mg/dl OPTIMAL 100 - 129 mg/dl NEAR OR ABOVE OPTIMAL 130 - 159 mg/dl BORDERLINE HIGH 160 - 189 mg/dl HIGH >190 mg/dl VERY HIGH Performed By: #### V ITAD #### [facility] [address] [place] [address] Dr. Zurdo Gil Triglyceride [Mass/Vol] 297 mg/dL Critically high <=150 [facility] Comment on above: Performed By: #### V ITAD #### [facility] [address] [address] [address] Zurdo Gil VLDL CALC 59.4 mg/dL Normal [facility] Comment on above: Performed By: #### V ITAD #### [facility] [address] [place] [address] Dr. Zurdo Gil MICROALB CREAT RATIO RANDOMo n 07-15-2022 mALB <1.3 Normal <=30.0 [facility] Comment on above: Performed By: #### M CRR #### [facility] [address] [address] [address] Zurdo Gil MALB CR RATIO RANGE SEE BELOW Normal [facility] Comment on above: Result Comment: NO M ICROALBUMINURIA 0-29 MG/G CLINICAL MICROALBUMINURIA 30-300 MG/G MACROALBUMINURIA >300 MG/G Performed By: #### M CRR #### [facility] [address] [address] [address] Zurdo Gil URINE CREAT 37.07 mg/dL Normal 20.00-300.00 [facility] Comment on above: Performed By: #### M CRR #### [facility] [address] [address] [address] Zurdo Gil PROF 14(COMP METB)on 023 Albumin [Mass/Vol] 4.3 g/dL Normal 3.4-5.0 [facility] Comment on above: Performed By: #### C VDAGA #### [facility] [address] [place] [address] Dr. Zurdo Gil Albumin/Globulin [Mass ratio] 1.0 {ratio} Normal [facility] Comment on above: Performed By: #### C VDAGA #### [facility] [address] [place] [address] Dr. Zurdo Gil ALP [Catalytic activity/Vol] 92 U/L Normal 46-116 [facility] Comment on above: Performed By: #### C VDAGA #### [facility] [address] [place] [address] Dr. Zurdo Gil ALT [Catalytic activity/Vol] 35 U/L Normal 16-63 [facility] Comment on above: Performed By: #### C VDAGA #### [facility] [address] [place] [address] Dr. Zurdo Gil Anion gap [Moles/Vol] 15.2 mmol/L Normal [facility] Comment on above: Performed By: #### C VDAGA #### [facility] [address] [place] [address] Dr. Zurdo Gil AST [Catalytic activity/Vol] 22 U/L Normal 15-37 [facility] Comment on above: Performed By: #### C VDAGA #### [facility] [address] [address] [address] Zurdo Gil Bilirubin [Mass/Vol] 1.1 mg/dL Critically high 0.2-1.0 [facility] Comment on above: Performed By: #### C VDAGA #### [facility] [address] [address] [address] Zurdo Gil Calcium [Mass/Vol] 9.4 mg/dL Normal 8.5-10.1 [facility] Comment on above: Performed By: #### C VDAGA #### [facility] [address] [place] [address] Dr. Zurdo Gil Chloride [Moles/Vol] 99 mmol/L Normal 98-107 [facility] Comment on above: Performed By: #### C VDAGA #### [facility] [address] [place] [address] Dr. Zurdo Gil CO2 [Moles/Vol] 25.8 mmol/L Normal 21.0-32.0 [facility] Comment on above: Performed By: #### C VDAGA #### [facility] [address] [place] [address] Dr. Zurdo Gil Creatinine [Mass/Vol] 1.01 mg/dL Normal 0.70-1.30 [facility] Comment on above: Performed By: #### C VDAGA #### [facility] [address] [place] [address] Dr. Zurdo Gil EGFR-AF SALVADOREAN >60 Normal >=60 [facility] Comment on above: Performed By: #### C VDAGA #### [facility] [address] [place] [address] Dr. Zurdo Gil EGFR-NON AF SALVADOREAN >60 Normal >=60 [facility] Comment on above: Performed By: #### C VDAGA #### [facility] [address] [place] [address] Dr. Zurdo Gil Globulin (S) [Mass/Vol] 4.1 g/dL Normal [facility] Comment on above: Performed By: #### C VDAGA #### [facility] [address] [address] [address] Zurdo Gil Glucose [Mass/Vol] 185 mg/dL Critically high 74-106 [facility] Comment on above: Performed By: #### C VDAGA #### [facility] [address] [place] [address] Dr. Zurdo Gil Potassium [Moles/Vol] 2.9 mmol/L Critically low 3.5-5.1 [facility] Comment on above: Performed By: #### C VDAGA #### [facility] [address] [place] [address] Dr. Zurdo Gil Protein [Mass/Vol] 8.4 g/dL Critically high 6.4-8.2 [facility] Comment on above: Performed By: #### C VDAGA #### [facility] [address] [place] [address] Dr. Zurdo Gil Sodium [Moles/Vol] 135 mmol/L Critically low 136-145 [facility] Comment on above: Performed By: #### C VDAGA #### [facility] [address] [place] [address] Dr. Zurdo Gil Urea nitrogen [Mass/Vol] 15.0 mg/dL Normal 7.0-18.0 [facility] Comment on above: Performed By: #### C VDAGA #### [facility] [address] [place] [address] Dr. Zurdo Gil Urea nitrogen/Creatinine [Mass ratio] 14.9 mg/mg Normal [facility] Comment on above: Performed By: #### C VDAGA #### [facility] [address] [place] [address] Dr. Zurdo Gil TSHon 07-15-2022 TSH 2.054 uIU/mL Normal 0.358-3.740 [facility] Comment on above: Performed By: #### C VDAGA #### [facility] [address] [place] [address] Dr. Zurdo Gil VITAMIN B12on 07-15-2022 Cobalamin (Vitamin B12) [Mass/Vol] 1980.0 pg/mL Critically high 193.0-986.0 [facility] Comment on above: Performed By: #### F T4, VITB12, VITAD #### [facility] [address] [place] [address] Dr. Zurdo Gil VITAMIN D 25 OHon 07-15-2022 VIT D 25-OH 39.5 ng/mL Normal [facility] Comment on above: Performed By: #### F T4, VITB12, VITAD #### [facility] [address] [place] [address] Dr. Zurdo Gil VIT D RANGES SEE BELOW Normal [facility] Comment on above: Result Comment: <20 ng/mL Vit D deficient 20 - <30 ng/mL Vit D insufficient 30 - 100 ng/mL Vit D sufficient >100 ng/mL Potential Toxicity Performed By: #### F T4, VITB12, VITAD #### [facility] [address] [place] [address] Dr. Zurdo Gil ASYMPTOMATIC COVID-19 ANTIGE Non 04-28-2022 EUA Statement SEE BELOW Normal [facility] Comment on above: Result Comment: This test [...] sooner. Performed By: #### C VDAGA #### [facility] [address] [place] [address] Dr. Zurdo Gil SARS-CoV-2 (COVID-19) RNA MAYRA+probe Ql (Unsp spec) Negative Normal NEGATIVE [facility] Comment on above: Result Comment: Nega tive results are presumptive. They do not preclude infection and should not be used as the sole basis for treatment decisions. Additional confirmatory testing by a molecular method should be considered. Performed By: #### C VDAGA #### [facility] [address] [place] [address] Dr. Zurdo Gil Covid-19 PCR (CVDTB)on 03-27 SARS-CoV-2 (COVID-19) RNA MAYRA+probe Ql (Unsp spec) Detected Critically abnormal NOT DETECTED [facility] Comment on above: Result Comment: This test is not yet approved or cleared by the [place] FDA. When there are no FDA-approved or cleared tests available, and other criteria are met, FDA can make tests available under an emergency access mechanism called an Emergency Use Authorization (EUA). The EUA for this test is supported by the [employer] Trainee of Health and Human Service's declaration that [...] used). Performed By: #### C VDTBH #### [facility] [address] [place] [address] Dr. Zurdo Gil ANBFVUR-GDTI-GPOUJX-FACTOR 1 on 02-10-2022 Insulin-Like Growth Factor I 67 ng/mL Critically low 81-263 [facility] Comment on above: Performed By: #### C VDAGA #### [facility] [address] [place] [address] Dr. Zurdo Gil MICROALBUMIN/ CREATININE RAT IOon 02-07-2022 Albumin, Urine 8.6 ug/mL Normal Not Estab. [facility] Comment on above: Performed By: #### C VDAGA #### [facility] [address] [place] [address] Dr. Zurdo Gil Albumin/ Creatinine Ratio 8 mg/g creat Normal 0-29 [facility] Comment on above: Result Comment: Norm al: 0 - 29 Moderately increased: 30 - 300 Severely increased: >300 Performed By: #### C VDAGA #### [facility] [address] [address] [address] Zurdo Gil Creatinine, Urine 103.5 mg/dL Normal Not Estab. [facility] Comment on above: Performed By: #### C VDAGA #### [facility] [address] [address] [address] Zurdo Gil TESTOSTERONE, TOTALon 2021 Testosterone [Mass/Vol] ng/dL Critically high 264-916 [facility] Comment on above: Result Comment: Adul t male reference interval is based on a population of healthy nonobese males (BMI <30) between 19 and 39 years old. Elen et.al. JCEM 2017,102;8733-9934. PMID: [id number]. Performed By: #### V ITAD #### [facility] [address] [place] [address] Dr. Zurdo Gil GLYCOHEMOGLOBIN A1Con 2021 ADA RECOMMENDATION SEE BELOW Normal [facility] Comment on above: Result Comment: ADA RECOMMENDED LIMIT 4.0 - 6.0 ADA THERAPEUTIC TARGET < 7.0 ACTION SUGGESTED > 7.0 Performed By: #### A 1C #### [facility] [address] [address] [address] Zurdo Gil Glucose [Mass/Vol] 154 mg/dL Normal [facility] Comment on above: Performed By: #### A 1C #### [facility] [address] [place] [address] Dr. Zurdo Gil HbA1c (Bld) [Mass fraction] 7.0 % Critically high 4.5-6.2 [facility] Comment on above: Performed By: #### A 1C #### [facility] [address] [place] [address] Dr. Zurdo Gil LIPID PROFILEon 02-06-2022 CHOL-HDL RATIO NORM SEE BELOW Normal [facility] Comment on above: Result Comment: 3.3 - 4.4 LOW RISK 4.4 - 7.1 AVERAGE RISK 7.1 - 11.0 MODERATE RISK >11.0 HIGH RISK Performed By: #### M CRR #### [facility] [address] [place] [address] Dr. Zurdo Gil Cholesterol [Mass/Vol] 192 mg/dL Normal <=200 [facility] Comment on above: Performed By: #### M CRR #### [facility] [address] [address] [address] Zurdo Gil Cholesterol in HDL [Mass/Vol] 35 mg/dL Critically low 40-60 [facility] Comment on above: Performed By: #### M CRR #### [facility] [address] [address] [address] Zurdo Gil Cholesterol in LDL [Mass/Vol] 97.6 mg/dL Normal [facility] Comment on above: Performed By: #### M CRR #### [facility] [address] [address] [address] Zurdo Gil Cholesterol.total/Ch olesterol in HDL [Mass ratio] 5.5 {ratio} Normal [facility] Comment on above: Performed By: #### M CRR #### [facility] [address] [address] [address] Zurdo Gil HDL NORMAL > or = 60 mg/dl - LOW CARDIOVASCULAR RISK <40 mg/dl - HIGH CARDIOVASCULAR RISK Normal [facility] [facility] Comment on above: Performed By: #### M CRR #### [facility] [address] [address] [address] Zurdo Gil LDL CALC NORMAL SEE BELOW Normal [facility] Comment on above: Result Comment: <100 mg/dl OPTIMAL 100 - 129 mg/dl NEAR OR ABOVE OPTIMAL 130 - 159 mg/dl BORDERLINE HIGH 160 - 189 mg/dl HIGH >190 mg/dl VERY HIGH Performed By: #### M CRR #### [facility] [address] [address] [address] Zurdo Gil Triglyceride [Mass/Vol] 297 mg/dL Critically high <=150 [facility] Comment on above: Performed By: #### M CRR #### [facility] [address] [address] [address] Zurdo Gil VLDL CALC 59.4 mg/dL Normal [facility] Comment on above: Performed By: #### M CRR #### [facility] [address] [place] [address] Dr. Zurdo Gil PROF 14(COMP METB)on 022 Albumin [Mass/Vol] 3.7 g/dL Normal 3.4-5.0 [facility] Comment on above: Performed By: #### V ITAD #### [facility] [address] [place] [address] Dr. Zurdo Gil Albumin/Globulin [Mass ratio] 1.1 {ratio} Normal [facility] Comment on above: Performed By: #### V ITAD #### [facility] [address] [place] [address] Dr. Zurdo Gil ALP [Catalytic activity/Vol] 65 U/L Normal 46-116 [facility] Comment on above: Performed By: #### V ITAD #### [facility] [address] [place] [address] Dr. Zurdo Gil ALT [Catalytic activity/Vol] 38 U/L Normal 16-63 [facility] Comment on above: Performed By: #### V ITAD #### [facility] [address] [place] [address] Dr. Zurdo Gil Anion gap [Moles/Vol] 13.1 mmol/L Normal [facility] Comment on above: Performed By: #### V ITAD #### [facility] [address] [place] [address] Dr. Zurdo Gil AST [Catalytic activity/Vol] 24 U/L Normal 15-37 [facility] Comment on above: Performed By: #### V ITAD #### [facility] [address] [place] [address] Dr. Zurdo Gil Bilirubin [Mass/Vol] 0.8 mg/dL Normal 0.2-1.0 [facility] Comment on above: Performed By: #### V ITAD #### [facility] [address] [place] [address] Dr. Zurdo Gil Calcium [Mass/Vol] 8.5 mg/dL Normal 8.5-10.1 [facility] Comment on above: Performed By: #### V ITAD #### [facility] [address] [address] [address] Zurdo Gil Chloride [Moles/Vol] 101 mmol/L Normal 98-107 [facility] Comment on above: Performed By: #### V ITAD #### [facility] [address] [address] [address] Zurdo Gil CO2 [Moles/Vol] 25.4 mmol/L Normal 21.0-32.0 [facility] Comment on above: Performed By: #### V ITAD #### [facility] [address] [address] [address] Zurdo Gil Creatinine [Mass/Vol] 1.24 mg/dL Normal 0.70-1.30 [facility] Comment on above: Performed By: #### V ITAD #### [facility] [address] [place] [address] Dr. Zurdo Gil EGFR-AF SALVADOREAN >60 Normal >=60 [facility] Comment on above: Performed By: #### V ITAD #### [facility] [address] [place] [address] Dr. Zurdo Gil EGFR-NON AF SALVADOREAN >60 Normal >=60 [facility] Comment on above: Performed By: #### V ITAD #### [facility] [address] [place] [address] Dr. Zurdo Gil Globulin (S) [Mass/Vol] 3.5 g/dL Normal [facility] Comment on above: Performed By: #### V ITAD #### [facility] [address] [address] [address] Zurdo Gil Glucose [Mass/Vol] 203 mg/dL Critically high 74-106 [facility] Comment on above: Performed By: #### V ITAD #### [facility] [address] [place] [address] Dr. Zurdo Gil Potassium [Moles/Vol] 3.5 mmol/L Normal 3.5-5.1 [facility] Comment on above: Performed By: #### V ITAD #### [facility] [address] [place] [address] Dr. Zurdo Gil Protein [Mass/Vol] 7.2 g/dL Normal 6.4-8.2 [facility] Comment on above: Performed By: #### V ITAD #### [facility] [address] [place] [address] Dr. Zurdo Gil Sodium [Moles/Vol] 136 mmol/L Normal 136-145 [facility] Comment on above: Performed By: #### V ITAD #### [facility] [address] [place] [address] Dr. Zurdo Gil Urea nitrogen [Mass/Vol] 17.0 mg/dL Normal 7.0-18.0 [facility] Comment on above: Performed By: #### V ITAD #### [facility] [address] [place] [address] Dr. Zurdo Gil Urea nitrogen/Creatinine [Mass ratio] 13.7 mg/mg Normal [facility] Comment on above: Performed By: #### V ITAD #### [facility] [address] [place] [address] Dr. Zurdo Gil [facility] SARS-CoV-2 (COVID-19) RNA MAYRA+probe Ql (Unsp spec) Not detected Normal NOT DETECTED [facility] Comment on above: Result Comment: When diagnostic [...] for this test is supported by the Route Sales Trainee of Health and Human Service's declaration that [...] used). Performed By: #### C VDAGA #### [facility] [address] [address] [address] Zurdo Gil MRI KNEE LT WO [...] by: QUINTON SALGADO Date: 2022-01-10 17:55 Normal [facility] XR FOOT RT MIN 3 VIEWSon [...] changes, as above. Electronically authenticated by: ZOEY DALLASJOHNNIE Date: 2021-11-11 15:37 Normal [facility] KOPQWCC-EIID-GYYQLW-FACTOR 1 on 11-06-2021 Insulin-Like Growth Factor I 66 ng/mL Critically low 81-263 [facility] Comment on above: Performed By: #### C VDAGA #### [facility] [address] [address] [address] Zurdo Gil TESTOSTERONE, TOTALon 2021 Testosterone [Mass/Vol] 895 ng/dL Normal 264-916 [facility] Comment on above: Result Comment: Adul t male reference interval is based on a population of healthy nonobese males (BMI <30) between 19 and 39 years old. Elen et.al. JCEM 2017,102;3361-4398. PMID: [id number]. Performed By: #### M CRR #### [facility] [address] [address] [address] Zurdo Gil GLYCOHEMOGLOBIN A1Con 2021 ADA RECOMMENDATION SEE BELOW Normal [facility] Comment on above: Result Comment: ADA RECOMMENDED LIMIT 4.0 - 6.0 ADA THERAPEUTIC TARGET < 7.0 ACTION SUGGESTED > 7.0 Performed By: #### C VDAGA #### [facility] [address] [address] [address] Zurdo Gil Glucose [Mass/Vol] 203 mg/dL Normal [facility] Comment on above: Performed By: #### C VDAGA #### [facility] [address] [address] [address] Zurdo Gil HbA1c (Bld) [Mass fraction] 8.7 % Critically high 4.5-6.2 [facility] Comment on above: Performed By: #### C VDAGA #### [facility] [address] [address] [address] Zurdo Gil LIPID PROFILEon 11-04-2021 CHOL-HDL RATIO NORM SEE BELOW Normal [facility] Comment on above: Result Comment: 3.3 - 4.4 LOW RISK 4.4 - 7.1 AVERAGE RISK 7.1 - 11.0 MODERATE RISK >11.0 HIGH RISK Performed By: #### V ITAD #### [facility] [address] [address] [address] Zurdo Gil Cholesterol [Mass/Vol] 200 mg/dL Normal <=200 [facility] Comment on above: Performed By: #### V ITAD #### [facility] [address] [address] [address] Zurdo Gil Cholesterol in HDL [Mass/Vol] 39 mg/dL Critically low 40-60 [facility] Comment on above: Performed By: #### V ITAD #### [facility] [address] [address] [address] Zurdo Gil Cholesterol in LDL [Mass/Vol] 112.2 mg/dL Normal [facility] Comment on above: Performed By: #### V ITAD #### [facility] [address] [address] [address] Zurdo Gil Cholesterol.total/Ch olesterol in HDL [Mass ratio] 5.1 {ratio} Normal [facility] Comment on above: Performed By: #### V ITAD #### [facility] [address] [address] [address] Zurdo Gil HDL NORMAL > or = 60 mg/dl - LOW CARDIOVASCULAR RISK <40 mg/dl - HIGH CARDIOVASCULAR RISK Normal [facility] Comment on above: Performed By: #### V ITAD #### [facility] [id number] Zurdo Gil LDL CALC NORMAL SEE BELOW Normal [facility] Comment on above: Result Comment: <100 mg/dl OPTIMAL 100 - 129 mg/dl NEAR OR ABOVE OPTIMAL 130 - 159 mg/dl BORDERLINE HIGH 160 - 189 mg/dl HIGH >190 mg/dl VERY HIGH Performed By: #### V ITAD #### [facility] [address] [address] [address] Zurdo Gil Triglyceride [Mass/Vol] 244 mg/dL Critically high <=150 [facility] Comment on above: Performed By: #### V ITAD #### [facility] [address] [address] [address] Zurdo Gil VLDL CALC 48.8 mg/dL Normal [facility] Comment on above: Performed By: #### V ITAD #### [facility] [address] [address] [address] Zurdo Gil MICROALB CREAT RATIO RANDOMo n 11-04-2021 mALB 4.9 mg/L Normal <=30.0 [facility] Comment on above: Performed By: #### V ITAD #### [facility] [address] [address] [address] Zurdo Gil MALB CR RATIO 19.9 mg/g Normal 0.0-29.9 [facility] Comment on above: Performed By: #### V ITAD #### [facility] [address] [address] [address] Zurdo Gil MALB CR RATIO RANGE SEE BELOW Normal [facility] Comment on above: Result Comment: NO M ICROALBUMINURIA 0-29 MG/G CLINICAL MICROALBUMINURIA 30-300 MG/G MACROALBUMINURIA >300 MG/G Performed By: #### V ITAD #### [facility] [address] [address] [address] Zurdo Gil URINE CREAT 245.62 mg/dL Normal 20.00-300.00 [facility] Comment on above: Performed By: #### V ITAD #### [facility] [address] [address] [address] Zurdo Gil PROF 14(COMP METB)on 022 Albumin [Mass/Vol] 3.8 g/dL Normal 3.4-5.0 [facility] Comment on above: Performed By: #### V ITAD #### [facility] [address] [address] [address] Zurdo Gil Albumin/Globulin [Mass ratio] 1.1 {ratio} Normal [facility] Comment on above: Performed By: #### V ITAD #### [facility] [address] [address] [address] Zurdo Gil ALP [Catalytic activity/Vol] 85 U/L Normal 46-116 [facility] Comment on above: Performed By: #### V ITAD #### [facility] [address] [address] [address] Zurdo Gil ALT [Catalytic activity/Vol] 54 U/L Normal 16-63 [facility] Comment on above: Performed By: #### V ITAD #### [facility] [address] [address] [address] Zurdo Gil Anion gap [Moles/Vol] 15.5 mmol/L Normal [facility] Comment on above: Performed By: #### V ITAD #### [facility] [address] [place] [address] Dr. Zurdo Gil AST [Catalytic activity/Vol] 40 U/L Critically high 15-37 [facility] Comment on above: Performed By: #### V ITAD #### [facility] [address] [address] [address] Zurdo Gil Bilirubin [Mass/Vol] 0.7 mg/dL Normal 0.2-1.0 [facility] Comment on above: Performed By: #### V ITAD #### [facility] [address] [address] [address] Zurdo Gil Calcium [Mass/Vol] 9.1 mg/dL Normal 8.5-10.1 [facility] Comment on above: Performed By: #### V ITAD #### [facility] [address] [address] [address] Zurdo Gil Chloride [Moles/Vol] 102 mmol/L Normal 98-107 [facility] Comment on above: Performed By: #### V ITAD #### [facility] [address] [address] [address] Zurdo Gil CO2 [Moles/Vol] 22.9 mmol/L Normal 21.0-32.0 [facility] Comment on above: Performed By: #### V ITAD #### [facility] [address] [address] [address] Zurdo Gil Creatinine [Mass/Vol] 1.13 mg/dL Normal 0.70-1.30 [facility] Comment on above: Performed By: #### V ITAD #### [facility] [address] [address] [address] Zurdo Gil EGFR-AF SALVADOREAN >60 Normal >=60 [facility] Comment on above: Performed By: #### V ITAD #### [facility] [address] [address] [address] Zurdo Gil EGFR-NON AF SALVADOREAN >60 Normal >=60 [facility] Comment on above: Performed By: #### V ITAD #### [facility] [address] [place] [address] Dr. Zurdo Gil Globulin (S) [Mass/Vol] 3.6 g/dL Normal [facility] Comment on above: Performed By: #### V ITAD #### [facility] [address] [place] [address] Dr. Zurdo Gil Glucose [Mass/Vol] 219 mg/dL Critically high 74-106 [facility] Comment on above: Performed By: #### V ITAD #### [facility] [address] [place] [address] Dr. Zurdo Gil Potassium [Moles/Vol] 3.4 mmol/L Critically low 3.5-5.1 [facility] Comment on above: Performed By: #### V ITAD #### [facility] [address] [address] [address] Zurdo Gil Protein [Mass/Vol] 7.4 g/dL Normal 6.4-8.2 [facility] Comment on above: Performed By: #### V ITAD #### [facility] [address] [place] [address] Dr. Zurdo Gil Sodium [Moles/Vol] 137 mmol/L Normal 136-145 [facility] Comment on above: Performed By: #### V ITAD #### [facility] [address] [address] [address] Zurdo Gil Urea nitrogen [Mass/Vol] 21.0 mg/dL Critically high 7.0-18.0 [facility] Comment on above: Performed By: #### V ITAD #### [facility] [address] [address] [address] Zurdo Gil Urea nitrogen/Creatinine [Mass ratio] 18.6 mg/mg Normal [facility] Comment on above: Performed By: #### V ITAD #### [facility] [address] [address] [address] Zurdo Gil VITAMIN D 25 OHon 11-04-2021 VIT D 25-OH 39.7 ng/mL Normal [facility] Comment on above: Performed By: #### V ITAD #### [facility] [address] [address] [address] Zurdo Gil VIT D RANGES SEE BELOW Normal [facility] Comment on above: Result Comment: <20 ng/mL Vit D deficient 20 - <30 ng/mL Vit D insufficient 30 - 100 ng/mL Vit D sufficient >100 ng/mL Potential Toxicity Performed By: #### V ITAD #### [facility] [address] [address] [address] Zurdo Gil POC GLUCOSE LABon 10-24-2020 Glucose [Mass/Vol] 189 mg/dL High 70-100 [facility] Comment on above: Performed By: #### [id number] #### [facility] [address] [place] [address], [facility] Glucose [Mass/Vol] 169 mg/dL High 70-100 [facility] Comment on above: Performed By: #### [id number] #### [facility] [address] [place] [address], [facility] POC GLUCOSE LABon 10-23-2020 Glucose [Mass/Vol] 175 mg/dL High 70-100 [facility] Comment on above: Performed By: #### 8 [id number] #### [facility] [address] [place] [address], [place] Glucose [Mass/Vol] 206 mg/dL High 70-100 [facility] Comment on above: Performed By: #### 8 [id number] #### [facility] [address] [place] [address], [place] Glucose [Mass/Vol] 172 mg/dL High 70-100 [facility] Comment on above: Performed By: #### 8 [id number] #### [facility] [address] [place] [address], [place] Glucose [Mass/Vol] 180 mg/dL High 70-100 [facility] Comment on above: Performed By: #### 8 [id number] #### [facility] [address] [place] [address], [place] POC GLUCOSE LABon 10-22-2020 Glucose [Mass/Vol] 159 mg/dL High 70-100 [facility] Comment on above: Performed By: #### [id number] #### [facility] [address] [place] [address], [place] Glucose [Mass/Vol] 197 mg/dL High 70-100 [facility] Comment on above: Performed By: #### 8 [id number] #### [facility] [address] [place] [address], [place] Glucose [Mass/Vol] 185 mg/dL High 70-100 [facility] Comment on above: Performed By: #### 8 [id number] #### [facility] [address] [place] [address], [place] Glucose [Mass/Vol] 160 mg/dL High 70-100 [facility] Comment on above: Performed By: #### 8 [id number] #### [facility] [address] [place] [address], [place] PROTHROMBIN TIMEon 1 INR Coag (PPP) [Relative time] 1.00 {INR} Normal 0.91-1.16 [facility] Comment on above: Order Comment: To cosme Result Comment: [facility] P RECOMMENDED INR FOR WARFARIN THERAPY [...] 1995;108:231S-246S. Performed By: #### 5 [id number] #### [address] PT Coag (PPP) [Time] 13.2 s Normal 12.3-14.8 [facility] Comment on above: Order Comment: To cosme Result Comment: ALL RESULTS MUST BE INTERPRETED WITH RESPECT TO BLOOD DRAWING ARTIFACT OR DILUTION ERROR OF ANTICOAGULANT AT THE TIME OF SAMPLING. Performed By: #### 5 [id number] #### [address] CERVICAL SPINE 2 OR 3 [facility] 10-21-2020 CERVICAL SPINE 2 OR 3 [facility] Department of Radiology [address] [place] [id number] Patient Name: RIAN COLEMAN : 1975 [...] fusion. Electronically signed: Adeline Bautista. Transcribed by: [email or web address], User Resident: Electronically Signed by: ADELINE BAUTISTA @ 10/22/2020 08:01 AM Normal [facility] Comment on above: Order Comment: Hardw are Evaluation, AP AND Lat POC GLUCOSE LABon 10-21-2020 Glucose [Mass/Vol] 164 mg/dL High 70-100 [facility] Comment on above: Performed By: #### [id number] #### [facility] [address] [facility] [place] [address], [facility] Glucose [Mass/Vol] 170 mg/dL High 70-100 [facility] Comment on above: Performed By: #### [id number] #### [facility] [address] Glucose [Mass/Vol] 194 mg/dL High 70-100 [facility] Comment on above: Performed By: #### 8 [id number] #### [facility] [address] PROTHROMBIN TIMEon 1 INR Coag (PPP) [Relative time] 0.99 {INR} Normal 0.91-1.16 [facility] Comment on above: Order Comment: Brendano wn [...] 1995;108:231S-246S. Performed By: #### 5 [id number] #### [facility] [address] [place] [address], [facility] PT Coag (PPP) [Time] 13.1 s Normal 12.3-14.8 [facility] Comment on above: Order Comment: Unkno wn Result Comment: ALL RESULTS MUST BE INTERPRETED WITH RESPECT TO BLOOD DRAWING ARTIFACT OR DILUTION ERROR OF ANTICOAGULANT AT THE TIME OF SAMPLING. Performed By: #### 5 [id number] #### [facility] [address] [place] [address], [place] BASIC METABOLIC PANELon 05-2 Calcium [Mass/Vol] 8.7 mg/dL Normal 8.6-10.3 [facility] Comment on above: Order Comment: No: D o not add to previous draw Performed By: #### [id number] #### [facility] [address] [place] [address], [place] Chloride [Moles/Vol] 99 mmol/L Normal 98-107 [facility] Comment on above: Order Comment: No: D o not add to previous draw Performed By: #### [id number] #### [facility] [address] [place] [address], [place] CO2 [Moles/Vol] 26 mmol/L Normal 21-31 [facility] Comment on above: Order Comment: No: D o not add to previous draw Performed By: #### [id number] #### [facility] [address] [place] [address], [place] Creatinine [Mass/Vol] 1.04 mg/dL Normal 0.70-1.30 [facility] Comment on above: Order Comment: No: D o not add to previous draw Performed By: #### [id number] #### [facility] [address] [place] [address], [place] GFR/1.73 sq M.predicted among blacks MDRD (S/P/Bld) [Vol rate/Area] mL/min/{1.73_m2} Normal >60 [facility] Comment on above: Order Comment: No: D o not add to previous draw Performed By: #### [id number] #### [facility] [address] [place] [address], [place] GFR/1.73 sq M.predicted among non-blacks MDRD (S/P/Bld) [Vol rate/Area] mL/min/{1.73_m2} Normal >60 [facility] Comment on above: Order Comment: No: D o not add to previous draw Performed By: #### [id number] #### [facility] [address] [place] [address], [facility] Glucose [Mass/Vol] 211 mg/dL High 70-100 [facility] Comment on above: Order Comment: No: D o not add to previous draw Performed By: #### [id number] #### [facility] [address] [place] [address], [facility] Potassium [Moles/Vol] 3.9 mmol/L Normal 3.5-5.1 [facility] Comment on above: Order Comment: No: D o not add to previous draw Performed By: #### [id number] #### [facility] [address] [place] [address], [facility] Sodium [Moles/Vol] 134 mmol/L Low 136-145 [facility] Comment on above: Order Comment: No: D o not add to previous draw Performed By: #### [id number] #### [facility] [address] [place] [address], [facility] Urea nitrogen [Mass/Vol] 14 mg/dL Normal 7-25 [facility] Comment on above: Order Comment: No: D o not add to previous draw Performed By: #### [id number] #### [facility] [address] [place] [address], [facility] CBC W/DIFFon 10-20-2020 ABS IMM GRANS 0.1 10*3/uL Normal 0.0-0.2 [facility] Comment on above: Order Comment: No: D o not add to previous draw Performed By: #### [id number] #### [facility] [address] [place] [address], [facility] ABS NEUTROPHILS 10.2 10*3/uL High 1.6-7.6 The [facility] Comment on above: Order Comment: No: D o not add to previous draw Performed By: #### [id number] #### [facility] [address] [place] [address], [place] Basophils (Bld) [#/Vol] 0.1 10*3/uL Normal 0.0-0.2 [facility] Comment on above: Order Comment: No: D o not add to previous draw Performed By: #### [id number] #### [facility] [address] [place] [address], [place] Basophils/100 WBC (Bld) 0.4 % Normal 0.0-1.0 [facility] Comment on above: Order Comment: No: D o not add to previous draw Performed By: #### [id number] #### [facility] [address] [place] [address], [place] Eosinophils (Bld) [#/Vol] 0.1 10*3/uL Normal 0.0-0.5 [facility] Comment on above: Order Comment: No: D o not add to previous draw Performed By: #### [id number] #### [facility] [address] [place] [address], [place] Eosinophils/100 WBC (Bld) 0.8 % Normal 0.0-6.0 [facility] Comment on above: Order Comment: No: D o not add to previous draw Performed By: #### [id number] #### [facility] [facility] [address] [place] [address], [place] Erythrocyte distribution width (RBC) [Ratio] 12.2 % Normal 11.5-15.0 The [facility] Comment on above: Order Comment: No: D o not add to previous draw Performed By: #### 8 [id number] #### [facility] [address] [place] [address], [place] Hematocrit (Bld) [Volume fraction] 44.9 % Normal 39.0-50.0 The [facility] Comment on above: Order Comment: No: D o not add to previous draw Performed By: #### 8 [id number] #### [facility] [address] [place] [address], [facility] Hemoglobin (Bld) [Mass/Vol] 15.7 g/dL Normal 13.0-17.0 The [facility] Comment on above: Order Comment: No: D o not add to previous draw Performed By: #### 8 [id number] #### [facility] [address] [place] [address], [facility] IMMATURE GRANS 0.4 % Normal 0.0-1.0 The [facility] Comment on above: Order Comment: No: D o not add to previous draw Performed By: #### 8 [id number] #### [facility] [address] [place] [address], [facility] Lymphocytes (Bld) [#/Vol] 2.3 10*3/uL Normal 1.2-4.0 The [facility] Comment on above: Order Comment: No: D o not add to previous draw Performed By: #### 8 [id number] #### [facility] [address] [place] [id number], [facility] Lymphocytes/100 WBC (Bld) 16.1 % Low 20.0-45.0 The [facility] Comment on above: Order Comment: No: D o not add to previous draw Performed By: #### 8 [id number] #### [facility] [address] [place] [address], [facility] MCH (RBC) [Entitic mass] 32.6 pg Normal 27.0-33.0 The [facility] Comment on above: Order Comment: No: D o not add to previous draw Performed By: #### 8 [id number] #### [facility] [address] [place] [address], [facility] MCHC (RBC) [Mass/Vol] 35.0 g/dL Normal 32.0-35.0 The [facility] Comment on above: Order Comment: No: D o not add to previous draw Performed By: #### 8 [id number] #### [facility] [address] [place] [address], [facility] MCV (RBC) [Entitic vol] 93.2 fL Normal 82.0-98.0 The [facility] Comment on above: Order Comment: No: D o not add to previous draw Performed By: #### 8 [id number] #### [facility] [address] [facility] [place] [address], [facility] Monocytes (Bld) [#/Vol] 1.4 10*3/uL High 0.1-1.0 The [facility] Comment on above: Order Comment: No: D o not add to previous draw Performed By: #### 8 [id number] #### [facility] [address] [facility] [place] [address], [facility] MONOS 10.2 % Normal 5.0-12.0 The [facility] Comment on above: Order Comment: No: D o not add to previous draw Performed By: #### 8 [id number] #### [facility] [address] [facility] [place] [address], [facility] Neutrophils/100 WBC (Bld) 72.1 % High 40.0-72.0 The [facility] Comment on above: Order Comment: No: D o not add to previous draw Performed By: #### 8 [id number] #### [facility] [address] [facility] [place] [address], [facility] Nucleated RBC/100 WBC (Bld) [Ratio] 0 % Normal 0-0 The [facility] Comment on above: Order Comment: No: D o not add to previous draw Performed By: #### 8 [id number] #### [facility] [address] [facility] [place] [address], [facility] PLAT CNT 204 10*3/uL Normal 150-400 The [facility] Comment on above: Order Comment: No: D o not add to previous draw Performed By: #### 8 [id number] #### [facility] [address] [place] [address], [place] RBC (Bld) [#/Vol] 4.82 10*6/uL Normal 4.20-5.[address] [facility] Comment on above: Order Comment: No: D o not add to previous draw Performed By: #### 8 [id number] #### [facility] [address] [place] [address], [place] WBC (Bld) [#/Vol] 14.17 10*3/uL High 4.00-10.60 The [facility] Comment on above: Order Comment: No: D o not add to previous draw Performed By: #### 8 [id number] #### [facility] [address] [place] [address], [place] POC GLUCOSE LABon 10-20-2020 Glucose [Mass/Vol] 135 mg/dL High 70-100 The [facility] Comment on above: Performed By: #### 8 [id number] #### [facility] [address] [place] [address], [place] Glucose [Mass/Vol] 179 mg/dL High 70-100 The [facility] Comment on above: Performed By: #### 8 [id number] #### [facility] [address] [place] [address], [place] Glucose [Mass/Vol] 213 mg/dL High 70-100 The [facility] Comment on above: Performed By: #### 8 [id number] #### [facility] [address] [place] [address], [place] Glucose [Mass/Vol] 185 mg/dL High 70-100 The [facility] Comment on above: Performed By: #### 8 [id number] #### [facility] [address] [place] [address], [place] PROTHROMBIN TIMEon 1 INR Coag (PPP) [Relative time] 1.02 {INR} Normal 0.91-1.16 [facility] Comment on above: Order Comment: [...] 1995;108:231S-246S. Performed By: #### 8 [id number] #### [address] PT Coag (PPP) [Time] 13.4 s Normal 12.3-14.8 [facility] Comment on above: Order Comment: No: D o not add to previous draw Result Comment: ALL RESULTS MUST BE INTERPRETED WITH RESPECT TO BLOOD DRAWING ARTIFACT OR DILUTION ERROR OF ANTICOAGULANT AT THE TIME OF SAMPLING. Performed By: #### 8 [id number] #### [address] CERVICAL SPINE 2 OR 3 [facility] 10-19-2020 CERVICAL SPINE 2 OR 3 [facility] Department of Radiology [address] [place] [id number] Patient Name: RIAN COLEMAN P : 1975 Sex: M Age: Race: White [...] obtained. Electronically signed: Mg Ferreira. Transcribed by: [email or web address], User Resident: Electronically Signed by: MG FERREIRA @ 10/19/2020 01:55 PM Normal The [facility] Comment on above: Order Comment: C3-7 POSTERIOR CERVICAL DISCECTOMY AND FUSION Operative Reporton Operative Report MR#: [id number] # [facility] Pt. Name: Rian Cloeman Room #: 9D Discharge 09/28/2020 Date: Birthdate: 1975 OPERATIVE REPORT DATE OF SURGERY: 10/19/2020 SURGEON: Zen De La Cruz M.D. COMMERCIAL SALES REPRESENTATIVE: Modesta Ferreira and Charles Bouck, M.D. 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 ANESTHESIA: General endotracheal. POSITION: Prone position on the Mariano table in reverse Trendelenburg position. OPERATION: 1. C3-C7 posterior cervical spine decompression (63798, 16814r1). 2. C3-C7 posterior segmental cervical instrumentation using Synapse 3.5 mm system from [employer] (08359). 3. C3-C7 posterior cervical fusion using autograft, crush cancellous allograft (00194, 84685 x3). 4. Application and removal of Garcia Chavez tongs (87013). 6. Use of intraoperative fluoroscopy (46773). 7. Local autograft harvesting and use of crush cancellous allograft (42706, ) 8. Modifier 22 due to medical [...] content not included)... Normal The [facility] Operative Report MR#: [id number] I [facility] Pt. Name: Rian Coleman Room #: 6AB 552116 Discharge 09/28/2020 Date: Birthdate: 1975 OPERATIVE REPORT DATE OF SURGERY: 10/19/2020 SURGEON: Zen De La Cruz M.D. COMMERCIAL SALES REPRESENTATIVE: Modesta Ferreira and Charles Hardwick M.D. 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 ANESTHESIA: General endotracheal. POSITION: Prone position on the Mariano table in reverse Trendelenburg position. OPERATION: 1. C3-C7 posterior cervical spine decompression (76802, 44387z3). 2. C3-C7 posterior segmental cervical instrumentation using Synapse 3.5 mm system from [employer] (89894). 3. C3-C7 posterior cervical fusion using autograft, crush cancellous allograft (59822, 17709 x3). 4. Application and removal of Garcia Chavez tongs (41101). 6. Use of intraoperative fluoroscopy (63822). 7. Local autograft harvesting and use of crush cancellous allograft (09188, 51948) 8. Modifier 22 due to medical comorbidities, [...] prone using the turning mechanism of the Maraino table. The patient was then placed in [...] content not included)... Normal The [facility] POC GLUCOSE LABon 10-19-2020 Glucose [Mass/Vol] 221 mg/dL High 70-100 The [facility] Comment on above: Performed By: #### 8 5499 #### [facility] [address] [place] [address], [place] Glucose [Mass/Vol] 231 mg/dL High 70-100 The [facility] Comment on above: Performed By: #### 8 5499 #### [facility] [address] [facility] [address], [place] Glucose [Mass/Vol] 244 mg/dL High 70-100 The [facility] Comment on above: Performed By: #### 8 5499 #### [facility] [address] [facility] [address], [place] Glucose [Mass/Vol] 165 mg/dL High 70-100 The [facility] Comment on above: Performed By: #### 8 5499 #### [facility] [address] [address], [place] TYPE AND SCREENon 10-19-2020 ABO INTERPRETATION O Normal The [facility] Comment on above: Performed By: #### 8 [id number] #### [facility] [address] [address], [place] RH INTERPRETATION Positive Normal The [facility] Comment on above: Performed By: #### 8 [id number] #### [facility] [address] [address], [place] CERVICAL SPINE 4 OR 5 VIEWSo n 09-28-2020 CERVICAL SPINE 4 OR 5 VIEWS [facility] Department of Radiology [address] [place] [id number] Patient Name: RIAN COLEMAN : 1975 Sex: M Age: Race: White Pt. Location: 84 Patient Status: D Ordered Date: 09/28/2020 1:05:00 [...] instability. Electronically signed: MANUEL VU. Transcribed by: [email or web address], User Resident: Electronically Signed by: MANUEL VU @ 09/29/2020 07:17 PM Normal The [facility] LUMBAR SPINE 4 OR 5 Son LUMBAR SPINE 4 OR 5 S [facility] Department of Radiology [address] [place] [phone] Patient Name: RIAN COLEMAN : 1975 [...] ext Exam: LUMBAR SPINE 4 OR 5 [facility] LUMBAR SPINE 4 OR 5 S 09/28/2020 [...] instability. Electronically signed: MANUEL VU. Transcribed by: [email or web address], User Resident: Electronically Signed by: MANUEL VU @ 09/29/2020 07:14 PM Normal The [facility] Comment on above: Order Comment: martell khan chelsie, ext CNOVon 09-06-2020 CNOV Office Visit ([facility]) RIAN COLEMAN ([id number]) 1975 M Date Time Provider Department 09/06/20 3:00 PM ASHLEY MERCADO [facility] During your visit today, we recorded the following information about you: Pulse Blood pressure Weight Height 90/minute 179/93 188.2 kg 1.93 m Ashley Mercado MD 09/06/2020 3:23 PM Sign when Signing Visit SPINE SURGERY OUTPATIENT CONSULT SERVICE DATE: 09/06/2020 PCP: Ed Gonsalez DO REFERRING PROVIDER: Ed Kahn MD [address] [address] Consult requested for an opinion regarding the evaluation and treatment of cervical myelopathy. My final impression and recommendations will be communicated back to the requesting physician by way of the shared medical record or letter via US mail. SUBJECTIVE Rianmarion Coleman is a 44 year old male [...] and mye (more content not included)... [facility] RIAN COLEMAN ([id number]) 1975 M Date Time Provider Department 09/06/20 ASHLEY MERCADO [facility] During your visit today, we recorded the following information about you: Nadia Carvajal [facility] 09/06/2020 3:22 PM Signed NI [...] with Dr. Mercado Number to return call [phone] Okay to leave a message ? Yes Thank you calling [facility]. You will receive a return [...] Belkis Echeverria 09/11/2020 10:23 AM Signed Sent [employer] msg. to Mr. Coleman for more specifics on type of note needed. Awaiting response. Radha Eng 09/13/2020 10:44 AM Signed I have called patient 4 times over the course of a few days. Phone rings once and then goes to busy signal. Not sure if he is having phone problems. I also have sent him a msg. by way of [employer]. I will send letter as well to try and reach him. Radha Eng Allergies As of Date: 09/06/2020 (Not on File) Date Reviewed: 09/06/2020 Reviewed by: Vic Chow) DONNA Castillo - Fully Assessed Reason for Visit: Question [2457] Prescriptions as of 12/12/2020 - amLODIPine (NORVASC) [...] Status:Closed by NADIA COLEMAN on 12/12/20 Normal [facility] Discharge CCD Assessmenton 0 08-23-2020 Discharge CCD Assessment [facility] Patient: RIAN COLEMAN [address] [place] [address] MR#: [id number] DISCHARGE CCD ASSESSMENT : 75 Service Date: 08/23/201714 Discharge CCD Assessment Assessment Patient discharged home and needs to get cardiac clearance Electronically Signed eSign Date and Time Lida Limon 08/23/201715 Ed Kahn MD Normal [facility] GLUCOSE METERon 08-23-2020 Glucose [Mass/Vol] 135 mg/dL High 70-99 [facility] Comment on above: Result Comment: Fast ing GLUCOSE reference range has been updated per (ADA) [place] [employer]'s recommendation. 08/17/2018 Performed By: #### L 500.59653 #### Test performed at: [place] [address] OPERATIVE REPORTon OPERATIVE REPORT NAME: RIAN COLEMAN MR#: [id number] SURGEON: Ed Kahn MD DATE OF SURGERY: [...] possibly retry the procedure. ED KAHN MD JFS/[facility]/[id number] CC: Monitoring [facility] E/S: Ed Kahn MD 09/20/20 1345 Electronically Signed [facility] PT NAME: RIAN COLEMAN MR#: [id number] [address] [place] [address] ACCT: [id number] : 75 OPERATIVE REPORT Normal [facility] CERV SP W OBL/FLEX/EXT 6 OR >on 08-07-2020 CERV SP W OBL/FLEX/EXT 6 OR > STUDY: CERV SP W OBL/FLEX/EXT 6 OR > ; 08/07/2020 8:23 am INDICATION: PAIN. COMPARISON: None. ACCESSION NUMBER(S): [id number] ORDERING CLINICIAN: Ed Kahn FINDINGS: No fracture [...] the cervical spine without visualized instability. Normal [facility] LUMB SP COMP W FLEX/EXT 6 VW Son 08-07-2020 LUMB SP COMP W FLEX/EXT 6 VWS STUDY: LUMB SP COMP W FLEX/EXT 6 VWS ; 08/07/2020 8:05 am INDICATION: PAIN. COMPARISON: None. ACCESSION NUMBER(S): [id number] ORDERING CLINICIAN: Ed Kahn FINDINGS: No fracture [...] of the lumbar spine without instability. Normal [facility] MR-MRI C-SPINE WO/W CON IMPO RTon 08-02-2020 MR-MRI C-SPINE WO/W CON IMPORT Images were obtained outside of [facility] [id number] CN Normal [facility] MR-MRI L-SPINE WO/W CON IMPO RTon 07-31-2020 MR-MRI L-SPINE WO/W CON IMPORT Images were obtained outside of [facility] [id number] CN Normal [facility] MR-MRI T-SPINE WO/W CON IMPO RTon 07-31-2020 MR-MRI T-SPINE WO/W CON IMPORT Images were obtained outside of [facility] [id number] CN Normal [facility] CR-XR CHEST 1 V IMPORTon CR-XR CHEST 1 V IMPORT Images were obtained outside of [facility] [id number] CN Normal [facility] Vital Signs Date Time Vital Sign Value Performing Clinician Facility 02-04-2024 09:11040 Body height 193 cm Eliel Montalvo MD Work Phone: [facility] [employer] [facility] 02-04-2024 09:110400 Body mass index (BMI) [Ratio] 44.19 kg/m2 Eliel Montalvo MD Work Phone: [facility] 02-04-2024 09:11-0400 Body weight 164.66 kg Eliel Montalvo MD Work Phone: [facility] 01-04-2024 09:46-0400 Body height 193.04 cm [facility] 01-04-2024 09:46-0400 Body mass index (BMI) [Ratio] 43.9 kg/m2 [facility] 01-04-2024 09:46-0400 Body temperature 97.7 [degF] [facility] 01-04-2024 09:46-0400 Body weight 163.74 kg [facility] 01-04-2024 09:46-0400 Diastolic blood pressure 78 mm[Hg] [facility] 01-04-2024 09:46-0400 Heart rate 89 /min [facility] 01-04-2024 09:46-0400 SaO2% (BldA) [Mass fraction] 94 % [facility] 01-04-2024 09:46-0400 Systolic blood pressure 150 mm[Hg] [facility] 11-25-2023 08:26-0400 Body height 193.04 cm [facility] 11-25-2023 08:26-0400 Body mass index (BMI) [Ratio] 44.9 kg/m2 [facility] 11-25-2023 08:26-0400 Body weight 167.37 kg [facility] 11-06-2021 16:20-0400 Body height 193.04 cm Juan Monterroso Other [employer] [facility] [employer] Other 06-18-2021 15:40-0500 Body height 193.04 cm Juan Monterroso Other [employer] Other 06-18-2021 15:40-0500 Body mass index (BMI) [Ratio] 49.54 kg/m2 Juan Monterroso Other [employer] [facility] [employer] Other 06-18-2021 15:40-0500 Body temperature 97 [degF] Juan Monterroso Other [employer] Other 06-18-2021 15:40-0500 Body weight 184.62 kg Juan Monterroso Other [employer] Other 06-18-2021 15:40-0500 Diastolic blood pressure 86 mm[Hg] Juan Monterroso Other [employer] Other 06-18-2021 15:40-0500 Respiratory rate 20 /min Juan Monterroso Other [employer] Other 06-18-2021 15:40-0500 SaO2% (BldA) [Mass fraction] 95 % Juan Monterroso Other [employer] Other 06-18-2021 15:40-0500 Systolic blood pressure 134 mm[Hg] Juan Monterroso Other [employer] Other Encounters Encounter Date Encounter Type Care Provider Facility Start: 02-08-2024 ambulatory Facility:[facility] Start: 02-04-2024 End: 02-04-2024 ambulatory ELIEL MONTALVO [facility] Comment on above: History of right hip replacement (Primary Dx); Pain due to right hip joint prosthesis, initial encounter ([facility] Start: 02-04-2024 End: 02-04-2024 Office outpatient new 30 minutes Eliel Montalvo MD [facility] Comment on above: History of right hip replacement (Primary Dx); Lumbar radiculopathy Start: 02-01-2024 End: 02-01-2024 ambulatory Veronica Solo MD Facility:[facility] Start: 01-27-2024 End: 01-27-2024 Orders Only [facility] Comment on above: History of right hip replacement (Primary Dx) Start: 01-14-2024 ambulatory [facility] Start: 01-04-2024 End: 01-04-2024 ambulatory [facility] Work Phone: Start: 01-04-2024 End: 01-04-2024 Patient encounter procedure Pending Sale To [facility] Work Phone: Start: 12-21-2023 End: 12-21-2023 ambulatory Veronica Solo MD Facility: [facility] Start: 12-16-2023 End: 12-16-2023 ambulatory DO Juan Monterroso Work Phone: [facility] Work Phone: Start: 12-16-2023 End: 12-16-2023 Patient encounter procedure DO Juan Monterroso Work Phone: Pending [facility] To [facility] Work Phone: Start: 11-25-2023 End: 11-25-2023 ambulatory [facility] Work Phone: Start: 11-25-2023 End: 11-25-2023 Patient encounter procedure Pending Sale To [facility] Work Phone: Start: 11-10-2023 End: 11-10-2023 ambulatory [facility] Work Phone: Start: 11-10-2023 End: 11-10-2023 Patient encounter procedure Pending Sale To [facility] Work Phone: Start: 10-15-2023 End: 10-15-2023 ambulatory [facility] Start: 10-05-2023 End: 10-05-2023 ambulatory [facility] Start: 10-05-2023 End: 10-05-2023 ambulatory Veronica Solo MD Facility:[facility] Start: 10-04-2023 Letter encounter Juan Monterroso DO Work Phone: [facility] Start: 10-01-2023 End: 10-01-2023 ambulatory ZEN [facility] Start: 2023 End: 2023 Patient encounter procedure Pending Sale To [facility] Work Phone: Start: 02-16-2023 ambulatory Tone Everett acility:[facility] Start: 01-12-2023 End: 01-12-2023 ambulatory Juan Monterroso Other [facility] Other Start: 01-12-2023 Telephone encounter Juan Monterroso [facility] Start: 09-29-2022 Letter encounter Juan Monterroso DO Work Phone: [facility] Start: 08-13-[address] JUAN MONTERROSO Facilit y:[facility] Start: 07-16-2022 End: 07-17-[address] JUAN MONTERROSO Facility:[facility] Start: 07-15-2022 End: 07-16-2022 ambulatory ASH MAYER [facility] Other Start: 07-15-2022 Encounter for genera l adult medical examination without abnormal findings Juan Monterroso [facility] Start: 07-15-2022 Telephone encounter Juan Monterroso [facility] [place] Start: 06-24-2022 Letter encounter Juan Monterroso DO Work Phone: [facility] Start: 04-28-2022 End: 04-28-2022 ambulatory CARRI CAMARILLO Facility:[facility] Start: 04-24-2022 End: 04-24-2022 ambulatory Juan Monterroso Other [facility] Other Start: 04-24-2022 Telephone encounter Juan Monterroso [facility] [place] Start: 04-23-2022 End: 04-23-2022 ambulatory CARRI CAMARILLO Facility:[facility] Start: 02-18-2022 End: 02-19-[address] BREANNE CHUNG Facility:[facility] Start: 02-06-2022 End: 02-07-[address] JUAN MONTERROSO Facility:[facility] Start: 01-10-2022 End: 01-11-2022 ambulatory JUAN HUERTA Facility:[facility] Start: 01-10-2022 End: 01-10-2022 ambulatory CARRI CAMARILLO Facility:[facility] Start: 11-11-2021 End: 11-12-[address] JUAN MONTERROSO Facility:[facility] Start: 11-06-2021 End: 11-06-2021 ambulatory Juan Monterroso Other [facility] Other Start: 11-06-2021 Office outpatient vi sit 15 minutes Juan Monterroso [facility] Start: 11-04-2021 End: 11-05-[address] DOCTOR WALKER Facility:[facility] Start: 09-03-[address] JUAN MONTERROSO Facilit y:[facility] Start: 06-18-2021 End: 06-18-2021 ambulatory Juan Monterroso Other [facility] Other Start: 06-18-2021 Encounter for genera l adult medical examination without abnormal findings Juan Monterroso [facility] Start: 06-18-2021 Periodic preventive med est patient 40-64yrs Juan Monterroso [facility] Start: 06-18-2021 Telephone encounter Juan Monterroso [facility] Start: 10-19-2020 End: 10-24-2020 Evaluation and management of inpatient ZEN DE LA CRUZ Facility:[facility] Procedures Date Procedure Procedure Detail Performing Clinician Start: 10-19-2020 FUSION 2-6 C JT W AU MARIA LUISA SUB, POST APPR A COL, OPEN ZEN DE LA CRUZ Start: 10-19-2020 RELEASE CERVICAL NER VE, OPEN APPROACH ZEN Tuan DE LA CRUZ Start: 10-19-2020 RELEASE CERVICAL SPI NAL CORD, OPEN APPROACH ZEN K BARBARA Start: 10-19-2020 Antibody screen ZEN DE LA CRUZ Comment on above: Performed By: #### [id number] #### [facility] [address] [place], [place] [address] Plan of Treatment Date Care Activity Detail Author Start: 09-22-2025 Shingles (RZV) Vacci ne (1 of 2) Shingles (RZV) Vaccine (1 of 2) [facility] Start: 02-04-2024 End: 02-03-2025 CT Hip - right WO contrast CT hip right without contrast Imaging Routine History of right hip replacement Pain due to right hip joint prosthesis, initial encounter ([facility]) Expected: 02/04/2024, Expires: 02/03/2025 [facility] Work Phone: Comment on above: Expected: 02/04/2024 , Expires: 02/03/2025 Start: 02-04-2024 End: 02-04-2024 Patient encounter procedure 02/04/2024 9:00 AM EDT Office Visit [facility] [address] [place] [address] Eliel Montalvo MD [address] [place] [address] [facility] Start: 01-27-2024 End: 01-26-2025 XR Pelvis and Hip - right 2 Views X-ray hip right 2-3 views with or without pelvis Imaging Routine History of right hip replacement Expected: 01/27/2024, Expires: 01/26/2025 [facility] Work Phone: Comment on above: Expected: 01/27/2024 , Expires: 01/26/2025 Start: 01-24-2024 COVID-19 Vaccine ( season) COVID-19 Vaccine ( season) [facility] Start: 01-24-2024 Influenza vaccination Influenza Vacc ine [facility] Start: 12-16-2023 Plain X-ray of right hip XR hip RT min 2V(w/wo pelvis)* [facility] Start: 12-16-2023 XR Hip - right 2 Views [facility] Start: 11-25-2023 Patient referral [facility] Work Phone: Start: 01-23-2023 COVID-19 Vaccine ( season) COVID-19 Vaccine ( season) [facility] Start: 02-22-2022 Influenza vaccination Influenza Vacc ine (#1) [facility] Start: 09-22-2020 Screening for malign ant neoplasm of colon [facility] Start: 08-22-2020 COVID-19 Vaccine (3 - Booster for Moderna series) COVID-19 Vaccine (3 - Booster for Moderna series) [facility] Start: 09-22-2010 [facility]id [facility] Start: 08-10-2009 Hepatitis B vaccination Hepati tis B (HBV) Vaccine (3 of 3 - 19+ 3-dose series) [facility] Start: 09-22-1994 DTaP,Tdap and Td Vaccines (1 - Tdap) DTaP,Tdap and Td Vaccines (1 - Tdap) [facility] Start: 09-22-1994 Hepatitis A (HAV) Vaccine (optional start 19+ years) Hepatitis A (HAV) Vaccine (optional start 19+ years) [facility] Start: 09-22-1993 Adult BMI Follow Up Plan Adult BMI Follow Up Plan [facility] Start: 09-22-1993 Adult BMI Screening Adult BMI Screen ing [facility] Start: 09-22-1993 Diabetic foot examination Diabetic Foot Exam [facility] Start: 09-22-1993 Hepatitis C screening Hepatitis C An tibody [facility] Start: 09-22-1993 Tetanus + diphtheria + acellular pertussis vaccine (product) Tdap Booster [facility] Start: 09-22-1990 HIV screening HIV Test [facility] Start: 1987 Depression Screening Depression Scre ening [facility] Start: 1987 Tobacco Screening Tobacco Screening [facility] Start: 1975 Glaucoma screening Diabetic Op hthalmology Exam [facility] Start: 1975 Screening for malign ant neoplasm of colon Colonoscopy [facility] End: 02-03-2025 C-reactive protein C-reactive protein Lab Routine History of right hip replacement Pain due to right hip joint prosthesis, initial encounter ([facility] 1 Occurrences starting 02/04/2024 until 02/03/2025 [facility] Work Phone: Comment on above: 1 Occurrences starti ng 02/04/2024 until 02/03/2025 End: 02-03-2025 Erythrocyte sedimentation rate Erythrocyte Sedimentation Rate (ESR) Lab Routine History of right hip replacement Pain due to right hip joint prosthesis, initial encounter ([facility]) 1 Occurrences starting 02/04/2024 until 02/03/2025 [employer] Comment on above: 1 Occurrences starti ng 02/04/2024 until 02/03/2025 MR Hip - right WO contrast [facility] Patient Education Low back pain in adults [facility] Work Phone: Patient referral [facility] Work Phone: Immunizations Immunization Date Immunization Notes Care Provider Iqra gipson 06-27-2020 COVID-19 Vaccine Moderna - Documentation Purposes Only Juan Monterroso Other [employer] [facility] [employer] Other 05-31-2020 COVID-19 Vaccine Moderna - Documentation Purposes Only Juan Monterroso Other [employer] [facility] [employer] Other 03-05-2020 influenza, seasonal, injectable Juan Monterroso Other [facility] 03-05-2020 influenza virus vaccine, unspecified formulation Asiya Martinez [facility] [employer] 06-15-2009 hepatitis B vaccine, pediatric or pediatric/adolescent dosage Juan Monterroso DO Work Phone: [facility] 06-14-2009 novel [id number]-[id number], preservative-free, injectable Juan Monterroso DO [facility] Phone[facility] 06-14-2009 influenza virus vaccine, unspecified formulation Juan [facility]roso DO [facility] Phone[facility] 12-15-2008 hepatitis B vaccine, adult dosage Juan Monterroso DO Work Phone: [facility] 11-13-2008 hepatitis B vaccine, adult dosage Juan Monterroso DO Work Phone: [facility] Payers Date Payer Category Payer Unknown [id number] 2019 Unknown [id number] 2018 Unknown [id number] 1975 Unknown [id number] 2.16.8 40.1.209821.3.579.2.647 1975 Unknown [id number] 2.16.84 0.1.276709.3.579.2.593 1975 Unknown [id number] 2.16.84 0.1.265927.3.579.2.593 1975 Unknown [id number] 2.16.84 0.1.498685.3.579.2.593 1975 Unknown [id number] 2.16.84 0.1.706840.3.579.2.593 1975 Unknown [id number] 2.16.84 0.1.485288.3.579.2.593 1975 Unknown [id number] 2.16.84 0.1.797402.3.579.2.593 1975 Unknown [id number] 2.16.84 0.1.298795.3.579.2.593 1975 Unknown [id number] 2.16.84 0.1.853173.3.579.2.593 1975 Unknown [id number] 2.16.84 0.1.485206.3.579.2.593 1975 Unknown [id number] 2.16.84 0.1.708549.3.579.2.593 1975 Unknown [id number] 2.16.84 0.1.942706.3.579.2.593 1975 Unknown [id number] 2.16.84 0.1.259500.3.579.2.593 1975 Unknown [id number] 2.16.84 0.1.553458.3.579.2.593 1975 Unknown [id number] 2.16.84 0.1.556674.3.579.2.593 1975 Unknown [id number] 2.16.84 0.1.346417.3.579.2.593 1975 Unknown [id number] 2.16. 840.1.516869.3.579.2.196 1975 Unknown [id number] 2.16. 840.1.786478.3.579.2.196 1975 Unknown [id number] 2.16. 840.1.714687.3.579.2.196 1959 Self-pay Unknown [id number] 2.16.8 40.1.007081.3.579.2.531 Social History Date Type Detail Facility Unknown if ever smoked [facility] Other Start: 07-27-2018 End: 11-03-2018 Sex Assigned At [facility] Other Start: 07-13-2018 End: 2023 Tobacco smoking status [facility] Ex-smoker [facility] History of tobacco use Current smoker [facility] Start: 07-13-2018 End: 02-04-2024 Tobacco use and exposure Smokeless tobacco non-user [facility] Start: 1975 Sex Assigned At Not on file [facility] Start: 07-27-2018 End: 11-03-2018 History of Social function [facility] Start: 1975 Sex Assigned At Male [facility] Tobacco smoking status [facility] Tobacco smoking consumption unknown [facility] Childcare Unknown [facility] Start: 02-04-2024 Tobacco smoking status AKIS Never smoked tobacco [facility] Start: 02-04-2024 Alcoholic beverage intake Ex-drinker (finding) [facility] NEGATED: Highlighted rowStart: NINF History of tobacco use Passive smoker [facility] Clinical Notes 08-29-2020 to 02-04-2024 Eliel Montalvo MD - 02/04/2024 9:00 AM EDT Note Date & Type Note Facility 02-04-2024 History of Present illness Narrative Orthopaedic Surgery Outpatient Visit Note Encounter Date: 02/04/2024 Patient: Rian Coleman 1975 PCP No primary care provider on file. CC: Chief Complaint Patient presents with Right Hip - Pain [facility] HE[employer] [facility] RT THR 12/2018, Dr. Montalvo at [facility], having pain, Dr. De La Cruz told him to see Dr. Montalvo to f/u on the RT THR before considering spine surgery HPI: Rian Coleman is a 48 y.o. male. This is a patient who has right thigh pain that started about 5 months ago. He has been off of work because of it. He has states that he has some significant pain that is worse with sitting or with standing up. He can not mobilize very much when it starts to hurt. He has about 5 minutes of time before he stands up that it starts being very severe in terms of pain. He has had a lumbar spine MRI and sounds like he has pretty significant stenosis at L4-5. However, there has been some confusion because the diagnosis is not clear given that he has predominantly right-sided symptoms in his previous hip replacement. The pain is located in his thigh region and radiates down. Notes that he was working out a lot before this started hurt. Past Medical History: Past Medical History: Diagnosis Date Hyperlipidemia Hypertension Past Surgical History: Procedure Laterality Date CERVICAL FUSION 3-7 HIP ARTHROSCOPY 12/2018 TONSILLECTOMY ADENOIDECTOMY Bilateral 1981 Medications: Current Outpatient Medications: atorvastatin (LIPITOR) 80 mg tablet, Take 1 tablet (80 mg total) by mouth in the morning., Disp: , Rfl: carvediloL (COREG) 12.5 mg tablet, Take 2 tablets (25 mg total) by mouth in the morning and 2 tablets (25 mg total) in the evening. Take with meals., Disp: , Rfl: chlorthalidone (HYGROTON) 25 mg tablet, Take 1 tablet (25 mg total) by mouth daily., Disp: , Rfl: cholecalciferol, vitamin D3, 2,000 units capsule, Take 1 capsule (2,000 Units total) by mouth in the morning., Disp: , Rfl: empagliflozin (JARDIANCE) 10 mg tablet tablet, Take 1 tablet (10 mg total) by mouth in the morning., Disp: , Rfl: gabapentin (NEURONTIN) 600 mg tablet, Take 1 tablet (600 mg total) by mouth in the morning. Taking at bed time due to drwsiness., Disp: , Rfl: ibuprofen (MOTRIN) 800 mg tablet, Take 1 tablet (800 mg total) by mouth as needed for pain., Disp: , Rfl: icosapent ethyL (VASCEPA) 1 gram capsule, Take 1 capsule (1 g total) by mouth in the morning and 1 capsule (1 g total) in the evening. Take with meals., Disp: , Rfl: losartan (COZAAR) 100 mg tablet, Take 1 tablet (100 mg total) by mouth in the morning., Disp: , Rfl: meloxicam (MOBIC) 7.5 mg tablet, Take 2 tablets (15 mg total) by mouth daily as needed for pain., Disp: , Rfl: potassium chloride (KLOR-CON M 20) 20 MEQ CR tablet, Take 1 tablet (20 mEq total) by mouth in the morning., Disp: , Rfl: tiZANidine (ZANAFLEX) 4 mg tablet, Take 1 tablet (4 mg total) by mouth every 6 (six) hours as needed for muscle spasms., Disp: , Rfl: Allergies and adverse reactions: No Known Allergies Social History: Social History Socioeconomic History Marital status: Single Spouse name: Not on file Number of children: Not on file Years of education: Not on file Highest education level: Not on file Occupational History Not on file Tobacco Use Smoking status: Never Passive exposure: Never Smokeless tobacco: Never Vaping Use Vaping status: Never Used Substance and Sexual Activity Alcohol use: Not Currently Drug use: Never Sexual activity: Defer Other Topics Concern Not on file Social History Narrative Not on file Social Determinants of Health Financial Resource Strain: Not on file Food Insecurity: Not on file Transportation Needs: Not on file Physical Activity: Not on file Stress: Not on file Social Connections: Not on file Interpersonal Safety: Unknown (07/16/2023) Received from [facility] Safety & Environment Fear of Current or Ex-Partner: Not on file Emotionally Abused: Not on file Physically Abused: Not on file Sexually Abused: Not on file Physically or Sexually Abused: Not on file Housing Instability: Not on file Family History: History reviewed. No pertinent family history. ROS: Constitutional No fever No chills Musculoskeletal Joint pain Objective: General Appearance : Well appearing Comfortable Orientation: Oriented to Person Place Time Mood and Affect: Normal Gait: He lays on the table in certain positions because he can not move very much. Right Hip exam Internal rotation: 20 External rotation: 30 No pain with range of motion. He is nontender to palpation over the lateral aspect of the hip. The incision is healed. Does have some hypoesthesia in the lateral and anterior portion of the thigh as compared to the contralateral side. Knee exam Extension: 0 Flexion: 120 Effusion: Sensation As noted in the hip exam. Strength Hip flexion, knee extension, and ankle dorsiflexion are 5/5. Labs: No results found for: HGB No results found for: CREATININE No results found for: CRP No results found for: SEDRATE No results found for: CULTURE Imaging: Radiographs of the right hip were reviewed. Findings: Right hip shows acceptable total hip arthroplasty with some heterotopic bone formation. The MRI shows acceptable appearance of the hip based on MRI. There is 1 area that I do not know about in the inguinal region that there is a slight difference from the right side versus the left side. Assessment: 1. History of right hip replacement 2. Lumbar radiculopathy Plan: I recommend getting CT scan of the right hip and an ESR and CRP. I suggested to him that he may want to follow up with General surgery to see if that slight abnormality in the MRI is hernia. That may explain his symptoms that radiate down his leg. Otherwise, he may have to follow up with Dr. De La Cruz for his spine. documented in this encounter [facility] 01-14-2024 Note Chief Complaint: low back and radicular pain right lower extremity HPI When did this problem begin: 4 months Timing/frequency of occurrence: Constant Pain description: sharp Pain severity: 8 Radicular pain: right thigh Numbness/tingling: right lower extremity Pain is getting: gradually getting worse Weakness: No What improves symptoms: Rest What makes symptoms worse: Activity Previous treatment for this problem: PT and spine injection, gabapentin, right LEEROY ROS Constitutional: Fatigue: No Weight loss: No Fever: No Chills: No Past Surgical History: Procedure Laterality Date CERVICAL SPINE SURGERY TONSILLECTOMY TOTAL HIP ARTHROPLASTY Past Medical History: Diagnosis Date HTN (hypertension) Hyperlipidemia Obesity Obesity Pre-diabetes Sleep apnea Tibial fracture Past Surgical History: Procedure Laterality Date CERVICAL SPINE SURGERY TONSILLECTOMY TOTAL HIP ARTHROPLASTY No Known Allergies Current Outpatient Medications: atorvastatin (Lipitor) 80 mg tablet, TAKE 1 TABLET BY MOUTH AT BEDTIME, Disp: 90 tablet, Rfl: 3 carvedilol (Coreg) [...] 100MG SCRIPT, Disp: 90 capsule, Rfl: 0 gabapentin (Neurontin) 600 mg tablet, Take 1 tablet (600 mg) by mouth three times daily., Disp: 90 tablet, Rfl: 0 icosapent ethyL (Vascepa) 1 gram [...] on file Intimate Partner Violence: Unknown (07/16/2023) [place] Safety & Environment Fear of Current or [...] Sensory Exam: intact Straight leg raising: Positive 40 degrees right side DTR/ Pathologic reflexes Biceps reflex- 2 Brachioradialis reflex- 2 Triceps reflex- 2 Patellar reflex- 2 Achilles reflex- 2 Babinski- negative William reflex: Absent Gait and station Gait: Normal Images: I, Dr. Zen De La Cruz, personally reviewed the images and my personal interpretation are: MRI L2-5 facet arthropathy, spinal stenosis Assessment and Plan 48 years presents with low back and radicular pain right lower extremity PT and spine injection,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
[2024-08-09 10:57] LABS: Bilirubin Urine NEGATIVE (NEGATIVE); Blood Urine NEGATIVE (NEGATIVE); Clarity Urine CLEAR (CLEAR); Color Urine LT. YELLOW (YELLOW); Glucose Urine UA >=1000 mg/dL (NEGATIVE); Ketones Urine 15 mg/dL (NEGATIVE); Leukocyte Esterase Urine NEGATIVE (NEGATIVE); Nitrite Urine NEGATIVE (NEGATIVE); Protein Urine NEGATIVE (NEG/TRACE)
[2024-08-09 10:58] LABS: Basophils Absolute Auto 0.1 10^3/uL (0.0-0.1); Basophils Percent Auto 0.5 % (0.2-2.0); Eosinophils Absolute Auto 0.3 10^3/uL (0.0-0.7); Eosinophils Percent Auto 2.6 % (0.9-7.0); Hematocrit 49.7 % (42.0-54.0); Hemoglobin 18.3 g/dL (14.0-18.0); Immature Granulocytes Abs Auto 0.03 10^3/uL (0.00-0.03); Immature Granulocytes Pct Auto 0.3 % (0.0-0.5); Lymphocytes Absolute Auto 1.6 10^3/uL (1.2-3.8); Lymphocytes Percent Auto 15.8 % (20.5-60.0); Mean Corpuscular HGB Conc 36.8 g/dL (29.9-35.2); Mean Corpuscular Hemoglobin 33.4 pg (25.9-34.0); Mean Corpuscular Volume 90.7 fL (80.0-94.0); Mean Platelet Volume 8.6 fL (9.5-13.5); Monocytes Absolute Auto 0.8 10^3/uL (0.3-0.8); Monocytes Percent Auto 7.7 % (1.7-12.0); Neutrophils Absolute Auto 7.2 10^3/uL (1.4-6.5); Neutrophils Percent Auto 73.1 % (43.0-75.0); Platelet Count 192 10^3/uL (150-450); Red Blood Count 5.48 10^6/uL (4.70-6.10); Red Cell Distribution Width 12.1 % (11.0-15.0); White Blood Count 9.8 10^3/uL (4.0-11.0)
[2024-08-09 11:03] LABS: Bacteria Urine NONE SEEN #/HPF (NONE SEEN); Cast Seen? NONE SEEN #/LPF (NONE SEEN); Crystals Seen? None Seen #/HPF (None Seen); Mucus Urine NONE SEEN (NONE SEEN); RBC Urine 0-2 #/HPF (0-2); Squamous Epithelial Cell Urine RARE #/LPF (NONE/RARE); WBC Urine NONE SEEN #/HPF (NONE SEEN)
[2024-08-09 11:04] LABS: Estimated Average Glucose 177 mg/dL; Glycohemoglobin A1C 7.8 % (4.5-6.2)
[2024-08-09 11:47] LABS: Alanine Aminotransferase 60 U/L (16-63); Albumin Globulin Ratio 1.2; Albumin Level 4.1 g/dL (3.4-5.0); Alkaline Phosphatase 102 U/L (46-116); Anion Gap 15.8; Aspartate Amino Transferase 26 U/L (15-37); BUN Creatinine Ratio 16.8; Bilirubin Total 1.2 mg/dL (0.2-1.0); Calcium 9.3 mg/dL (8.5-10.1); Carbon Dioxide 24.9 mmol/L (21.0-32.0); Chloride 100 mmol/L (98-107); Chol HDL Ratio 5.2; Cholesterol 252 mg/dL (<=200); Estimated GFR (African America >60 (>=60 mL/min/1.73m^2); Estimated GFR (Non-African Ame >60 (>=60 mL/min/1.73m^2); Globulin 3.4 g/dL; Glucose 211 mg/dL (74-106); HDL Cholesterol 48 mg/dL (40-60); Potassium 3.7 mmol/L (3.5-5.1); Sodium 137 mmol/L (136-145); Total Protein 7.5 g/dL (6.4-8.2); Triglycerides 234 mg/dL (<=150); VLDL CHOLESTEROL 46.8 mg/dL
[2024-08-10 03:07] LABS: Vitamin B12 1019 pg/mL (232-1245)
== END 2024-08-09 10:28 | disposition home or self-care (01) ==
LOC: LAB 10:32
PROVIDERS: PCP Family Medicine; Visit Provider Family Medicine
DX: Z00.00 Encounter for general adult medical examination without abnormal findings (principal); E23.0 Hypopituitarism; E55.9 Vitamin D deficiency, unspecified; Z79.899 Other long term (current) drug therapy; S06.9X9A Unspecified intracranial injury with loss of consciousness of unspecified duration, initial encounter; E87.6 Hypokalemia; R73.9 Hyperglycemia, unspecified
CPT/HCPCS: 36415; 80053; 80061; 81001; 82306; 82607; 82746; 83036; 84402; 84403; 85025; 87086; 87150